=== PATIENT | female | born 1955 | race Caucasian/White ===

== ENCOUNTER 2018-08-03 12:53 | Inpatient (IN) ==
--- NOTE | 2018-08-03 13:09 | Emergency Department Note ---
ED Disposition Clinical Impression: Angina pectoris Disposition: Still a Patient Condition on Discharge: Good Referrals: García Hubbard MD [Primary Care Provider] - - Critical Care Critical Care Time: No Attestation: On , the high probability of a clinically significant, sudden or life threatening deterioration of the following system(s) required my full and direct attention, intervention and personal management. The time I documented below is in addition to time spent performing reported procedures but includes the following listed in this critical care notation. Medical Decision Making - Kiran Inquiry Pt receiving controlled substance: No Vital Signs: 08/03/18 12:53 08/03/18 13:53 Pulse Rate [Left Radial] 58 L 56 L Respiratory Rate 18 18 Blood Pressure [Right Arm] 130/70 134/74 Blood Pressure Mean [Right Arm] 90 94 Blood Pressure Source [Right Arm] Automatic Cuff Automatic Cuff Blood Pressure Position [Right Arm] Supine Sitting 02 Sat by Pulse Oximetry 99 98 Oxygen Delivery Method Room Air Room Air - Lab Data Lab Results 08/03/18 13:00: WBC 9.1, RBC 4.13 L, Hgb 12.3, Hct 38.3, MCV 92.7, MCH 29.7, MCHC 32.1, RDW 13.7, Plt Count 262, MPV 8.4, Neut % (Auto) 76.1, Lymph % (Auto) 19.2, [place] % (Auto) 3.2, Eos % (Auto) 0.8, Baso % (Auto) 0.6, Neut # (Auto) 6.9, Lymph # (Auto) 1.8, [place] # (Auto) 0.3, Eos # (Auto) 0.1, Baso # (Auto) 0.1 08/03/18 13:00: Sodium 137, Potassium 4.7, Chloride 101, Carbon Dioxide 27, Anion Gap 13.7, BUN 29 H, Creatinine 1.86 H, Estimated Creat Clear 37, Estimated GFR 27 L, Est GFR ( Amer) 33 L, Glucose 242 H, Calcium 8.7, Total Bilirubin 0.3, AST 14 L, ALT 28, Alkaline Phosphatase 110, Troponin I 0.03, Total Protein 7.8, Albumin 3.4, Globulin 4.4 H, Albumin/Globulin Ratio 0.8 L Result diagrams: 08/03/18 13:00 08/03/18 13:00 Orders (Tests/Meds): ED MEDICATIONS Generic Name Dose Route Start Last Admin Trade Name Freq PRN Reason Stop Dose Admin Aspirin 81 mg 08/04/18 09:00 Aspirin 81mg Chewable Tablet PO 09/03/18 08:59 DAILY SARA Atorvastatin Calcium 80 mg 08/03/18 21:00 Lipitor 40mg Tablet PO 09/02/18 20:59 HS SARA Bisoprolol Fumarate 10 mg 08/03/18 21:00 Zebeta 5mg Tablet PO 09/02/18 20:59 BID SARA Diltiazem HCl 240 mg 08/03/18 21:00 Cardizem 180mg Er Capsule PO 09/02/18 20:59 BID SARA Irbesartan 150 mg 08/03/18 14:31 Avapro 150mg Tablet PO 08/03/18 14:32 ONCE ONE Nitroglycerin 0.5 gm 08/03/18 14:30 Nitroglycerin 1 Inch Oint Udp TD 09/02/18 14:29 Q6H SARA Discontinued Medications Generic Name Dose Route Start Last Admin Trade Name Freq PRN Reason Stop Dose Admin Aspirin 324 mg 08/03/18 13:11 08/03/18 13:15 Aspirin 81mg Chewable Tablet PO 08/03/18 13:12 324 mg ONCE ONE Administration Ondansetron HCl 4 mg 08/03/18 13:09 08/03/18 13:15 Zofran 4mg/2ml Vial IV 08/03/18 13:10 4 mg ONCE ONE Administration - Radiology Data #1 Image(s): Chest Image Reviewed: Yes I reviewed the patient's radiology image Preliminary Findings: Normal/NAD - ECG Data Tracing #1 EKG interpreted by Samy Rivero MD: Rhythm: Atrial flutter with 4-1 conduction Rate: 58 Frost: normal Ectopy: none Conduction: normal ST Segment Changes: none T Wave Changes: none Q Waves: none No evidence of acute ischemia or injury Prior electrocardiagrams reviewed. No change from prior tracings. - Physician Consults Physician Consulted: PETRA Vieira, for Dr. Hubbard Time: 14:05 Reason -: Cardiology Eval/Care Comment/Response: Here in the emergency department seeing patient at this time. Admit, they plan to perform cardiac cath in the morning Additional Consult: Daisy Time: 14:36 Comment/Response: Agrees to admit the patient to the hospital. We discussed the patient's clinical information, including history, exam, laboratory and radiology results and ED course. Per hospital procedure, I will write temporary bridge inpatient orders on the patient. Specific orders requested by the admitting physician: Serial cardiac enzymes, n.p.o. after midnight, start IV fluids then General Adult HPI - General Chief complaint: Chest Pain Stated complaint: CHEST PAIN Time Seen by Provider: 08/03/18 13:15 Mode of Arrival: Ambulatory Limitations: No Limitations Description of Symptoms (Recalled from ER Triage Doc. by RN): PATIENT STATES THAT SHE HAS BEEN SEEING DR HUBBARD ABOUT HER HEART RHYTHM. THURSDAY SHE STARTED HAVING CHEST PAIN THAT WENT ACROSS HER ENTIRE CHEST AND THE PAIN IS A 10 WHEN IT HITS. AT 930 THI SMORNING HER CHEST PAIN STARTED AGAIN AND IT CAUSED HER TO VOMIT. SHE IS MILDLY NASUEAS NOW. - History of Present Illness HPI narrative: Complains of chest pain for the past 2 days. Having a handful of episodes each day, lasting minutes. Nothing seems to bring it on, but says it goes away when she vomits. Associated with hot flashes, radiation across her back, shortness of breath. Feels similar to prior cardiac pain. States she has had 3 heart attacks and has 3 stents. Her last stent was put in by Dr. Hubbard in December. She is also seeing Dr. Hubbard for atrial fibrillation. She had an appointment today, but came to the emergency room instead because she had chest pain again this morning. States she is currently pain-free. - Related Data Home Medications Medication Instructions Recorded Confirmed ergocalciferol (vitamin D2) 50,000 50,000 unit PO QWEEK 12/16/17 07/21/18 unit capsule glipizide 10 mg tablet 10 mg PO BID 12/16/17 07/21/18 levothyroxine 88 mcg capsule 88 mcg PO DAILY cap 12/16/17 07/21/18 omega-3 fatty acids 1,000 mg 1,000 mg PO DAILY cap 12/16/17 07/21/18 capsule insulin degludec (U-100) 100 40 unit SUB-Q QHS ml 02/03/18 07/21/18 unit/mL (3 mL) subcutaneous pen Apixaban [Eliquis] 5 mg PO BID 08/03/18 Atorvastatin Calcium [Lipitor 80mg 80 mg PO HS 08/03/18 Tablet] Bisoprolol Fumarate [Bisoprolol 10 mg PO BID 08/03/18 10mg Tablet] Losartan Potassium [Cozaar] 100 mg PO DAILY 08/03/18 Pantoprazole Sodium [Protonix 40mg 40 mg PO QAM 08/03/18 tablet] dilTIAZem HCl [Diltiazem 240mg 240 mg PO BID 08/03/18 24Hr ER Cap] Previous Rx's Medication Instructions Recorded nitroglycerin 0.4 mg sublingual 0.4 mg SUBLINGUAL Q5M PRN #30 tab 07/21/18 tablet Allergies Allergy/AdvReac Type Severity Reaction Status Date / Time lisinopril AdvReac Cough Verified 07/21/18 11:51 rivaroxaban [From Xarelto] AdvReac Verified 08/03/18 13:03 [facility] History I have reviewed the patient's past medical history: Yes Medical History: Reports:: Diabetes Mellitus Type 2, Hypertension Other Medical History: Reports: Hypothyroidism Other Surgeries: Yes: Angioplasty, Cardiac Catheterization, Cholecystectomy, Hysterectomy-Partial - Social History Smoking Status: Never smoker Alcohol Intake: never - Psychiatric History Expresses thoughts of harming self/others: None Suicide Plan Description: No Plan Family Hx:: Diabetes Comment: Mother - heart disease ROS Obtained: Yes All systems reviewed & no additional complaints - Constitutional Constitutional: Denies fever(s) - Cardiovascular Cardiovascular: Reports chest pain, Reports dyspnea - Respiratory Respiratory: No cough - Gastrointestinal Gastrointestingal: Reports: nausea, vomiting. Denies: abdominal pain Physical Exam - General General appearance: alert, in no apparent distress - Head Head exam: atraumatic, normocephalic - Eye Eye exam: Present: normal appearance, PERRL, EOMI - ENT ENT exam: Present: mucous membranes moist - Neck Neck exam: Present: normal inspection, trachea midline - Chest Chest inspection: Present: normal inspection, symmetric chest wall rise - Respiratory Respiratory exam: Present: normal lung sounds bilaterally. Absent: respiratory distress - Cardiovascular Cardiovascular exam: Present: regular rate, normal rhythm, normal heart sounds - Abdominal Exam Abdominal exam: Present: soft. Absent: distention - Extremities Exam Extremities exam: Present: normal inspection, full ROM - Neurological Exam Neurological exam: Present: alert, oriented X3 - Psychiatric Psychiatric exam: Present: normal affect - Skin Skin exam: Present: warm, dry
[2018-08-03 13:14] LABS: Basophils # 0.1 K/mm3 (0-0.2); Basophils % 0.6 % (0.1-2.0); Eosinophils # 0.1 K/mm3 (0.0-0.4); Eosinophils % 0.8 % (0.1-12.0); Hematocrit 38.3 % (37.0-47.0); Hemoglobin 12.3 g/dL (12.2-16.2); Lymphocytes # 1.8 K/mm3 (0.7-4.5); Lymphocytes % 19.2 % (10-50); Mean Corpuscular HGB Conc 32.1 g/dL (31.8-35.4); Mean Corpuscular Hemoglobin 29.7 pg (27.0-31.2); Mean Corpuscular Volume 92.7 fl (81-99); Mean Platelet Volume 8.4 fl (7.4-10.4); Monocytes # 0.3 K/mm3 (0.1-1.0); Monocytes % 3.2 % (1.7-9.3); Neutrophils # 6.9 K/mm3 (1.8-7.8); Neutrophils % 76.1 % (37.0-80.0); Platelet Count 262 K/mm3 (142-424); Red Blood Count 4.13 M/mm3 (4.20-5.40); Red Cell Distribution Width 13.7 % (11.5-17.5); White Blood Count 9.1 K/mm3 (4.8-10.8)
[2018-08-03 13:35] LABS: Albumin Level 3.4 gm/dL (3.4-5.0); Albumin/Globulin Ratio 0.8 (1.1-1.8); Anion Gap 13.7 mEq/L (5-15); Bilirubin,Total 0.3 mg/dL (0.2-1.0); Calcium 8.7 mg/dL (8.5-10.1); Globulin 4.4 gm/dl (1.3-3.2); Potassium 4.7 mmoL/L (3.5-5.1); Total Protein,Serum 7.8 gm/dL (6.4-8.2)
--- NOTE | 2018-08-03 14:22 | Consult Report ---
History of Present Illness Consult date: 08/03/18 Consult reason: chest pain Chief complaint: Chest pain Additional Medical History:: 1. Coronary artery disease A. History of coronary artery stenting x3 in 2016 and 2017 with the last one in January or February [address] [place] [address] Foss. It was to the right coronary artery. 2. Diabetes mellitus, treated for 35 years A. Last hemoglobin A1c was 12 3. Hypertension 4. Hyperlipidemia 5. Hypothyroidism 6. Atrial fibrillation/flutter, failed sotalol therapy A. On Eliquis 7. Chronic kidney disease, stage III/IV with creatinine 1.86 and GFR 33 History of present illness: 63-year-old white female with coronary disease as noted above and long-term diabetes that is poorly controlled was seen in the emergency department at [facility] for complaint of recurrent chest pain over the last 3 days. Patient describes substernal discomfort with radiation to the back associated with nausea and vomiting today. The patient's daughter relates episodes of weakness and near syncope lasting up to 30 seconds. Patient also notes some shortness of breath and diaphoresis. Initial EKG shows atrial flutter with 4-1 block with controlled ventricular response. Patient's initial troponin is normal. In the ER she is currently pain-free. Cardiology consulted for evaluation recommendations. [facility] History Medical History: Reports:: Diabetes Mellitus Type 2, Hypertension Other Medical History: Reports: Hypothyroidism Other Surgeries: Yes: Angioplasty, Cardiac Catheterization, Cholecystectomy, Hysterectomy-Partial - *Social History Smoking Status: Never smoker Alcohol Intake: never - Psychiatric History Expresses thoughts of harming self/others: None Suicide Plan Description: No Plan *Family Hx:: Diabetes Meds Home Medications Medication Instructions Recorded Confirmed Type ergocalciferol (vitamin D2) 50,000 50,000 unit PO QWEEK 12/16/17 07/21/18 History unit capsule glipizide 10 mg tablet 10 mg PO BID 12/16/17 07/21/18 History levothyroxine 88 mcg capsule 88 mcg PO DAILY cap 12/16/17 07/21/18 History omega-3 fatty acids 1,000 mg 1,000 mg PO DAILY cap 12/16/17 07/21/18 History capsule insulin degludec (U-100) 100 40 unit SUB-Q QHS ml 02/03/18 07/21/18 History unit/mL (3 mL) subcutaneous pen Apixaban [Eliquis] 5 mg PO BID 08/03/18 History Atorvastatin Calcium [Lipitor 80mg 80 mg PO HS 08/03/18 History Tablet] Bisoprolol Fumarate [Bisoprolol 10 mg PO BID 08/03/18 History 10mg Tablet] Losartan Potassium [Cozaar] 100 mg PO DAILY 08/03/18 History Pantoprazole Sodium [Protonix 40mg 40 mg PO QAM 08/03/18 History tablet] dilTIAZem HCl [Diltiazem 240mg 240 mg PO BID 08/03/18 History 24Hr ER Cap] Allergies Allergy/AdvReac Type Severity Reaction Status Date / Time lisinopril AdvReac Cough Verified 07/21/18 11:51 rivaroxaban [From Xarelto] AdvReac Verified 08/03/18 13:03 Review of Systems - *Cardiovascular Reports chest pain, Reports shortness of breath with activity - *Respiratory Reports shortness of breath with activity - *Gastrointestinal Reports abdominal pain, Reports vomiting - *Genitourinary Denies blood in urine - *Musculoskeletal Reports back pain Exam Vital signs and Labs for Last 24 Hours: Pulse Resp BP Pulse Ox 56 L 18 134/74 98 08/03/18 13:53 08/03/18 13:53 08/03/18 13:53 08/03/18 13:53 Laboratory Results - last 24 hr 08/03/18 13:00: WBC 9.1, RBC 4.13 L, Hgb 12.3, Hct 38.3, MCV 92.7, MCH 29.7, MCHC 32.1, RDW 13.7, Plt Count 262, MPV 8.4, Neut % (Auto) 76.1, Lymph % (Auto) 19.2, [place] % (Auto) 3.2, Eos % (Auto) 0.8, Baso % (Auto) 0.6, Neut # (Auto) 6.9, Lymph # (Auto) 1.8, [place] # (Auto) 0.3, Eos # (Auto) 0.1, Baso # (Auto) 0.1 08/03/18 13:00: Sodium 137, Potassium 4.7, Chloride 101, Carbon Dioxide 27, Anion Gap 13.7, BUN 29 H, Creatinine 1.86 H, Estimated Creat Clear 37, Estimated GFR 27 L, Est GFR ( Amer) 33 L, Glucose 242 H, Calcium 8.7, Total Bilirubin 0.3, AST 14 L, ALT 28, Alkaline Phosphatase 110, Troponin I 0.03, Total Protein 7.8, Albumin 3.4, Globulin 4.4 H, Albumin/Globulin Ratio 0.8 L I & O for Last 24 hours: Intake & Output 08/01/18 08/02/18 08/03/18 08/04/18 11:59 11:59 11:59 11:59 Weight 170 lb - *Routine Neck Exam Present: supple. Absent: JVD, carotid bruit - *Routine Respiratory Exam Present: CTA bilaterally. Absent: accessory muscle use, rales, rhonchi, wheezes - *Routine Cardiovascular Exam Present: RRR. Absent: murmur, gallop, rubs - *Routine Abdominal Exam Present: soft. Absent: tenderness, distended, guarding - *Routine Extremities Exam Present: edema. Absent: calf tenderness - *Routine Neurological Exam Present: alert, oriented X3, moving all extremities Assessment and Plan (1) Angina pectoris Current visit: No Status: Chronic Category: Medical Code(s): I20.9 - Angina pectoris, unspecified (2) Atrial fibrillation Current visit: No Status: Chronic Qualifiers: Atrial fibrillation type: chronic Qualified Code(s): I48.2 - Chronic atrial fibrillation Category: Medical Code(s): I48.91 - Unspecified atrial fibrillation (3) Coronary arteriosclerosis Current visit: No Status: Chronic Category: Medical Code(s): I25.10 - Atherosclerotic heart disease of elem coronary artery without angina pectoris (4) HLD (hyperlipidemia) Current visit: No Status: Chronic Qualifiers: Hyperlipidemia type: mixed hyperlipidemia Qualified Code(s): E78.2 - Mixed hyperlipidemia Category: Medical Code(s): E78.5 - Hyperlipidemia, unspecified (5) Hypertensive heart disease Current visit: No Status: Chronic Qualifiers: Heart failure presence: without heart failure Qualified Code(s): I11.9 - Hypertensive heart disease without heart failure Category: Medical Code(s): I11.9 - Hypertensive heart disease without heart failure (6) Diabetes mellitus Current visit: Yes Status: Acute Category: Medical Code(s): E11.9 - Type 2 diabetes mellitus without complications (7) CKD (chronic kidney disease) stage 3, GFR 30-59 ml/min Current visit: Yes Status: Acute Category: Medical Code(s): N18.3 - Chronic kidney disease, stage 3 (moderate) - Assessment and plan all Dx Assessment and Plan for all problems:: 1. Patient should be admitted with plans to proceed with left heart catheterization in the a.m. 2. Will hold Eliquis therapy tonight and in the a.m. in preparation for cardiac catheterization. 3. Continue diltiazem 240 twice daily, bisoprolol 10 mg twice daily and losartan 100 mg daily. Add nitroglycerin paste 1/2 inch every 6 hours. 4. If cardiac catheterization shows no significant coronary artery disease then patient would benefit from improved diabetes control and possible GI workup for diabetic gastroparesis. 5. Further recommendations to follow pending above.
--- NOTE | 2018-08-03 18:08 | History & Physical Report ---
*Admission Date: 08/03/18 *Chief complaint: Chest pressure, warmth *History of present illness: Ms. Bailey is a 63-year-old female with history of coronary artery disease status post stents in 2016 and 17, Diabetes on insulin, CKD 3, hypertension, hyperlipidemia, hypothyroidism, and atrial flutter. She presented to the emergency room at [facility] due to recurrent and progressive chest pain over the past 3 days. She describes a pressure, substernally, that radiates to her back and neck associated with GI symptoms including nausea and emesis. She additionally has had a warm/flushing sensation from about mid chest up for the past day with these episodes. She denies syncope, tamara chest pain or stabbing sensations. Episodes last approximately 30 seconds and self resolved. Initial EKG in the ER showed a flutter. Troponins so far are normal. Cardiology was consulted for further assessment. Recommended admission and heart cath in the morning. Admitted to medicine for further management Denies headache, confusion, diarrhea, shortness of breath, syncope. [facility] History I have reviewed the patient's past medical history: Yes Medical History: Reports:: Diabetes Mellitus Type 2, Hypertension Other Medical History: Reports: Hypothyroidism Other Surgeries: Yes: Angioplasty, Cardiac Catheterization, Cholecystectomy, Hysterectomy-Partial - *Social History Educational Level: Attended College Smoking Status: Never smoker Alcohol Intake: never Occupational Status: retired Housing: house Household Members: spouse - Psychiatric History Expresses thoughts of harming self/others: None Suicide Plan Description: No Plan *Family Hx:: Diabetes Review of Systems - Review of Systems Review of systems:: pertinent systems reviewed and negative unless documented below Meds Home Medications Medication Instructions Recorded Confirmed Type ergocalciferol (vitamin D2) 50,000 50,000 unit PO QWEEK 12/16/17 08/03/18 History unit capsule glipizide 10 mg tablet 10 mg PO BID 12/16/17 08/03/18 History levothyroxine 88 mcg capsule 88 mcg PO DAILY cap 12/16/17 08/03/18 History omega-3 fatty acids 1,000 mg 1,000 mg PO DAILY cap 12/16/17 08/03/18 History capsule insulin degludec (U-100) 100 40 unit SUB-Q QHS ml 02/03/18 08/03/18 History unit/mL (3 mL) subcutaneous pen Apixaban [Eliquis] 5 mg PO BID 08/03/18 08/03/18 History Bisoprolol Fumarate [Bisoprolol 10 mg PO BID 08/03/18 08/03/18 History 10mg Tablet] Losartan Potassium [Cozaar] 100 mg PO DAILY 08/03/18 08/03/18 History Pantoprazole Sodium [Protonix 40mg 40 mg PO QAM 08/03/18 08/03/18 History tablet] dilTIAZem HCl [Diltiazem 240mg 240 mg PO BID 08/03/18 08/03/18 History 24Hr ER Cap] Allergies Allergy/AdvReac Type Severity Reaction Status Date / Time lisinopril AdvReac Cough Verified 07/21/18 11:51 rivaroxaban [From Xarelto] AdvReac Verified 08/03/18 13:03 Exam Vital signs and Labs for Last 24 Hours: Temp Pulse Resp BP Pulse Ox 97.8 F 58 L 16 152/68 H 97 08/03/18 16:57 08/03/18 16:57 08/03/18 16:57 08/03/18 16:57 08/03/18 16:57 Laboratory Results - last 24 hr 08/03/18 13:00: WBC 9.1, RBC 4.13 L, Hgb 12.3, Hct 38.3, MCV 92.7, MCH 29.7, MCHC 32.1, RDW 13.7, Plt Count 262, MPV 8.4, Neut % (Auto) 76.1, Lymph % (Auto) 19.2, [place] % (Auto) 3.2, Eos % (Auto) 0.8, Baso % (Auto) 0.6, Neut # (Auto) 6.9, Lymph # (Auto) 1.8, [place] # (Auto) 0.3, Eos # (Auto) 0.1, Baso # (Auto) 0.1 08/03/18 13:00: Sodium 137, Potassium 4.7, Chloride 101, Carbon Dioxide 27, Anion Gap 13.7, BUN 29 H, Creatinine 1.86 H, Estimated Creat Clear 37, Estimated GFR 27 L, Est GFR ( Amer) 33 L, Glucose 242 H, Calcium 8.7, Total Bilirubin 0.3, AST 14 L, ALT 28, Alkaline Phosphatase 110, Troponin I 0.03, Total Protein 7.8, Albumin 3.4, Globulin 4.4 H, Albumin/Globulin Ratio 0.8 L 08/03/18 17:08: POC Glucose 304 H* I & O for Last 24 hours: Intake & Output 07/31/18 08/01/18 08/02/18 08/03/18 23:59 23:59 23:59 23:59 Intake Total 360 / 360 Balance 360 / 360 Weight 79.124 kg - *Routine HEENT Exam Head: Present: normocephalic, Mahoney's sign Eye: Present: EOMI, PERRL ENT: Present: mucous membranes moist - *Routine Neck Exam Present: supple. Absent: lymphadenopathy - *Routine Respiratory Exam Present: CTA bilaterally, crackles (Bibasilar, fine). Absent: prolonged expiratory phase, wheezes - *Routine Cardiovascular Exam Present: Normal S1, irregular rhythm. Absent: murmur - *Routine Abdominal Exam Present: soft, normoactive bowel sounds - *Routine Rectal Exam Patient deferred: visual exam - *Routine Exam Patient deferred: external exam - *Routine Extremities Exam Present: edema (Trace). Absent: cyanosis, clubbing - *Routine Skin Exam Present: intact. Absent: cyanosis, erythema - *Routine Neurological Exam Present: alert, oriented X3. Absent: altered mental status Assessment and Plan (1) Angina pectoris Current visit: Yes Status: Acute Category: Medical Code(s): I20.9 - Angina pectoris, unspecified Cardiology consulted. Planning for In the morning. N.p.o. at midnight. - hold Eliquis therapy tonight and in the a.m. in preparation for cardiac catheterization. - Continue diltiazem 240 twice daily, bisoprolol 10 mg twice daily and losartan 100 mg daily. Add nitroglycerin paste 1/2 inch every 6 hours. -Cardiology plan as follows: If cardiac catheterization shows no significant coronary artery disease then patient would benefit from improved diabetes control and possible GI workup for diabetic gastroparesis. (2) Atrial fibrillation Current visit: No Status: Chronic Qualifiers: Atrial fibrillation type: chronic Qualified Code(s): I48.2 - Chronic atrial fibrillation Category: Medical Code(s): I48.91 - Unspecified atrial fibrillation (3) Coronary arteriosclerosis Current visit: No Status: Chronic Category: Medical Code(s): I25.10 - Atherosclerotic heart disease of [place] coronary artery without angina pectoris (4) HLD (hyperlipidemia) Current visit: No Status: Chronic Qualifiers: Hyperlipidemia type: mixed hyperlipidemia Qualified Code(s): E78.2 - Mixed hyperlipidemia Category: Medical Code(s): E78.5 - Hyperlipidemia, unspecified (5) Hypertensive heart disease Current visit: No Status: Chronic Qualifiers: Heart failure presence: without heart failure Qualified Code(s): I11.9 - Hypertensive heart disease without heart failure Category: Medical Code(s): I11.9 - Hypertensive heart disease without heart failure (6) Diabetes mellitus Current visit: Yes Status: Acute Qualifiers: Diabetes mellitus type: type 2 Diabetes mellitus mcc insulin use: with mcc use Diabetes mellitus complication status: with circulatory complication Diabetes mellitus complication detail: with other circulatory complications Qualified Code(s): E11.59 - Type 2 diabetes mellitus with other circulatory complications; Z79.4 - halfway (current) use of insulin Category: Medical Code(s): E11.9 - Type 2 diabetes mellitus without complications Patient on glipizide and insulin degludec 50 units daily. -Initiate sliding scale insulin -Continue insulin degludec, 40 units while inpatient and n.p.o. -Monitor fingerstick before meals and at bedtime (7) CKD (chronic kidney disease) stage 3, GFR 30-59 ml/min Current visit: Yes Status: Chronic Category: Medical Code(s): N18.3 - Chronic kidney disease, stage 3 (moderate) Baseline creatinine 1.8 -Avoid nephrotoxins -Monitor fluid status
[2018-08-04 06:09] LABS: Basophils % 0.5 % (0.1-2.0); Eosinophils # 0.1 K/mm3 (0.0-0.4); Eosinophils % 1.2 % (0.1-12.0); Hematocrit 33.4 % (37.0-47.0); Lymphocytes # 1.8 K/mm3 (0.7-4.5); Lymphocytes % 25.7 % (10-50); Mean Corpuscular HGB Conc 32.5 g/dL (31.8-35.4); Mean Corpuscular Hemoglobin 30.2 pg (27.0-31.2); Mean Corpuscular Volume 92.7 fl (81-99); Mean Platelet Volume 8.2 fl (7.4-10.4); Monocytes # 0.4 K/mm3 (0.1-1.0); Monocytes % 6.2 % (1.7-9.3); Neutrophils # 4.7 K/mm3 (1.8-7.8); Neutrophils % 66.5 % (37.0-80.0); Platelet Count 215 K/mm3 (142-424); White Blood Count 7.1 K/mm3 (4.8-10.8)
[2018-08-04 06:16] LABS: Anion Gap 13.3 mEq/L (5-15); Calcium 8.5 mg/dL (8.5-10.1); Potassium 4.3 mmoL/L (3.5-5.1)
[2018-08-04 07:02] LABS: Hemoglobin 10.9 g/dL (12.2-16.2)
--- NOTE | 2018-08-04 07:49 | Pharmacy Consult Notes ---
[facility] Pharmacy VTE Monitoring - Patient Demographics Admission date: 08/03/18 Report Date: 08/04/18 Time: 07:49 Allergies/Adverse Reactions: Patient Allergies lisinopril Adverse Reaction (Verified 07/21/18 11:51) Cough rivaroxaban [From Xarelto] Adverse Reaction (Verified 08/03/18 13:03) Height: 1.63 m Weight: 79.124 kg Patient Problems: Current Active Problems Diabetes mellitus (Acute) CKD (chronic kidney disease) stage 3, GFR 30-59 ml/min (Chronic) Angina pectoris (Acute) - VTE Risk Labs: VTE Related Lab Results Hgb 10.9 g/dL (12.2-16.2) L D 08/04/18 05:46 Hct 33.4 % (37.0-47.0) L 08/04/18 05:46 Plt Count 215 K/mm3 (142-424) 08/04/18 05:46 BUN 28 mg/dL (7-18) H 08/04/18 05:46 Creatinine 1.69 mg/dL (0.55-1.02) H 08/04/18 05:46 Estimated Creat Clear 42 mL/min (50-200) 08/04/18 05:46 Was VTE Risk Assessment Performed: Yes VTE Score: 1 VTE Risk Level: Very Low Risk Clinical Trial Participant: No - Prophylaxis VTE Prophylaxis Ordered?: Yes Types of VTE Prophylaxis: TEDS Knee High
--- NOTE | 2018-08-04 07:50 | Progress Note ---
Internal Medicine - PN: Subj *Date: 08/04/18 *Time: 07:49 Interval history: Patient slept comfortably, no chest pain. No complaints. Exam Vital signs and Labs for Last 24 Hours: Temp Pulse Resp BP Pulse Ox 97.2 F L 58 L 15 117/57 L 95 08/04/18 04:00 08/04/18 04:00 08/04/18 04:00 08/04/18 04:00 08/04/18 04:00 Laboratory Results - last 24 hr 08/03/18 13:00: WBC 9.1, RBC 4.13 L, Hgb 12.3, Hct 38.3, MCV 92.7, MCH 29.7, MCHC 32.1, RDW 13.7, Plt Count 262, MPV 8.4, Neut % (Auto) 76.1, Lymph % (Auto) 19.2, [place] % (Auto) 3.2, Eos % (Auto) 0.8, Baso % (Auto) 0.6, Neut # (Auto) 6.9, Lymph # (Auto) 1.8, [place] # (Auto) 0.3, Eos # (Auto) 0.1, Baso # (Auto) 0.1 08/03/18 13:00: Sodium 137, Potassium 4.7, Chloride 101, Carbon Dioxide 27, Anion Gap 13.7, BUN 29 H, Creatinine 1.86 H, Estimated Creat Clear 37, Estimated GFR 27 L, Est GFR ( Amer) 33 L, Glucose 242 H, Calcium 8.7, Total Bilirubin 0.3, AST 14 L, ALT 28, Alkaline Phosphatase 110, Troponin I 0.03, Total Protein 7.8, Albumin 3.4, Globulin 4.4 H, Albumin/Globulin Ratio 0.8 L 08/03/18 17:08: POC Glucose 304 H* 08/03/18 18:03: Troponin I 0.03 08/03/18 20:37: Troponin I 0.03 08/03/18 20:54: POC Glucose 274 H 08/04/18 05:46: WBC 7.1, RBC 3.60 L, Hgb 10.9 L D, Hct 33.4 L, MCV 92.7, MCH 30.2, MCHC 32.5, RDW 14.0, Plt Count 215, MPV 8.2, Neut % (Auto) 66.5, Lymph % (Auto) 25.7, [place] % (Auto) 6.2, Eos % (Auto) 1.2, Baso % (Auto) 0.5, Neut # (Auto) 4.7, Lymph # (Auto) 1.8, [place] # (Auto) 0.4, Eos # (Auto) 0.1, Baso # (Auto) 0.0 08/04/18 05:46: Sodium 140, Potassium 4.3, Chloride 104, Carbon Dioxide 27, Anion Gap 13.3, BUN 28 H, Creatinine 1.69 H, Estimated Creat Clear 42, Estimated GFR 30 L, Est GFR ( Amer) 37 L, Glucose 163 H D, Calcium 8.5 I & O for Last 24 hours: Intake & Output 08/01/18 08/02/18 08/03/18 08/04/18 11:59 11:59 11:59 11:59 Intake Total 360 / 360 Balance 360 / 360 Weight 174 lb 7 oz Narrative: Alert, oriented. Pleasant. No JVD. Oropharynx clear. Heart rate regular without murmurs. Lungs clear. No edema noted. Abdomen soft, No focal neurologic exam. Assessment and Plan (1) Angina pectoris Current visit: Yes Status: Acute Category: Medical Code(s): I20.9 - Angina pectoris, unspecified (2) Atrial fibrillation Current visit: No Status: Chronic Qualifiers: Atrial fibrillation type: chronic Qualified Code(s): I48.2 - Chronic atrial fibrillation Category: Medical Code(s): I48.91 - Unspecified atrial fibrillation (3) Coronary arteriosclerosis Current visit: No Status: Chronic Category: Medical Code(s): I25.10 - Atherosclerotic heart disease of [place] coronary artery without angina pectoris (4) HLD (hyperlipidemia) Current visit: No Status: Chronic Qualifiers: Hyperlipidemia type: mixed hyperlipidemia Qualified Code(s): E78.2 - Mixed hyperlipidemia Category: Medical Code(s): E78.5 - Hyperlipidemia, unspecified (5) Hypertensive heart disease Current visit: No Status: Chronic Qualifiers: Heart failure presence: without heart failure Qualified Code(s): I11.9 - Hypertensive heart disease without heart failure Category: Medical Code(s): I11.9 - Hypertensive heart disease without heart failure (6) Diabetes mellitus Current visit: Yes Status: Acute Qualifiers: Diabetes mellitus type: type 2 Diabetes mellitus terminal operator insulin use: with usp use Diabetes mellitus complication status: with circulatory complication Diabetes mellitus complication detail: with other circulatory complications Qualified Code(s): E11.59 - Type 2 diabetes mellitus with other circulatory complications; Z79.4 - [facility] (current) use of insulin Category: Medical Code(s): E11.9 - Type 2 diabetes mellitus without complications (7) CKD (chronic kidney disease) stage 3, GFR 30-59 ml/min Current visit: Yes Status: Chronic Category: Medical Code(s): N18.3 - Chronic kidney disease, stage 3 (moderate) - Assessment and plan all Dx Assessment and Plan for all problems:: Patient without symptoms through the night. Plan for left heart cath today, with discharge disposition versus further treatment based on the results of this test.
--- NOTE | 2018-08-04 13:16 | Progress Note ---
Subjective Date: 08/04/18 Time: 13:10 Principal diagnosis: Angina, chest pain Interval history: 63 yo WF in NAD. Cardiac cath showed patent stents with no new significant lesions. Telemetry during cath showed significant bradycardia and pauses up to 3 sec. Exam Vital signs and Labs for Last 24 Hours: Temp Pulse Resp BP Pulse Ox 97.4 F L 58 L 18 132/55 L 96 08/04/18 11:48 08/04/18 11:48 08/04/18 11:48 08/04/18 11:48 08/04/18 11:48 Laboratory Results - last 24 hr 08/03/18 13:00: WBC 9.1, RBC 4.13 L, Hgb 12.3, Hct 38.3, MCV 92.7, MCH 29.7, MCHC 32.1, RDW 13.7, Plt Count 262, MPV 8.4, Neut % (Auto) 76.1, Lymph % (Auto) 19.2, [place] % (Auto) 3.2, Eos % (Auto) 0.8, Baso % (Auto) 0.6, Neut # (Auto) 6.9, Lymph # (Auto) 1.8, [place] # (Auto) 0.3, Eos # (Auto) 0.1, Baso # (Auto) 0.1 08/03/18 13:00: Sodium 137, Potassium 4.7, Chloride 101, Carbon Dioxide 27, Anion Gap 13.7, BUN 29 H, Creatinine 1.86 H, Estimated Creat Clear 37, Estimated GFR 27 L, Est GFR ( Amer) 33 L, Glucose 242 H, Calcium 8.7, Total Bilirubin 0.3, AST 14 L, ALT 28, Alkaline Phosphatase 110, Troponin I 0.03, Total Protein 7.8, Albumin 3.4, Globulin 4.4 H, Albumin/Globulin Ratio 0.8 L 08/03/18 17:08: POC Glucose 304 H* 08/03/18 18:03: Troponin I 0.03 08/03/18 20:37: Troponin I 0.03 08/03/18 20:54: POC Glucose 274 H 08/04/18 05:46: WBC 7.1, RBC 3.60 L, Hgb 10.9 L D, Hct 33.4 L, MCV 92.7, MCH 30.2, MCHC 32.5, RDW 14.0, Plt Count 215, MPV 8.2, Neut % (Auto) 66.5, Lymph % (Auto) 25.7, [place] % (Auto) 6.2, Eos % (Auto) 1.2, Baso % (Auto) 0.5, Neut # (Auto) 4.7, Lymph # (Auto) 1.8, [place] # (Auto) 0.4, Eos # (Auto) 0.1, Baso # ( Auto) 0.0 08/04/18 05:46: Sodium 140, Potassium 4.3, Chloride 104, Carbon Dioxide 27, Anion Gap 13.3, BUN 28 H, Creatinine 1.69 H, Estimated Creat Clear 42, Estimated GFR 30 L, Est GFR ( Amer) 37 L, Glucose 163 H D, Calcium 8.5 08/04/18 06:02: POC Glucose 164 H 08/04/18 11:33: POC Glucose 187 H I & O for Last 24 hours: Intake & Output 08/02/18 08/03/18 08/04/18 08/05/18 11:59 11:59 11:59 11:59 Intake Total 360 / 360 Balance 360 / 360 Weight 174 lb 7 oz - *Routine Respiratory Exam Present: CTA bilaterally. Absent: accessory muscle use, rales, rhonchi, wheezes - *Routine Cardiovascular Exam Present: irregularly irregular. Absent: murmur, gallop, rubs Progress Note: A&P (1) Angina pectoris Status: Acute Current Visit: Yes (2) Atrial fibrillation Status: Chronic Current Visit: No (3) Coronary arteriosclerosis Status: Chronic Current Visit: No (4) HLD (hyperlipidemia) Status: Chronic Current Visit: No (5) Hypertensive heart disease Status: Chronic Current Visit: No (6) Diabetes mellitus Status: Acute Current Visit: Yes (7) CKD (chronic kidney disease) stage 3, GFR 30-59 ml/min Status: Chronic Current Visit: Yes Assessment and Plan for All Diagnoses:: CAD, stable. Diastolic Dysfunction/Hyperdynamic EF noted. Will start/adjust diuretics. A. fib/flutter with bradycardia/pauses on current combo of BB/CCB. Will reduce bisoprolol to 10 mg daily and Diltiazem CD 240 mg daily. Observe overnight with BMP in AM.
[2018-08-05 06:10] LABS: Basophils # 0.1 K/mm3 (0-0.2); Basophils % 0.6 % (0.1-2.0); Eosinophils # 0.1 K/mm3 (0.0-0.4); Eosinophils % 1.1 % (0.1-12.0); Hematocrit 37.8 % (37.0-47.0); Lymphocytes # 1.9 K/mm3 (0.7-4.5); Lymphocytes % 22.9 % (10-50); Mean Corpuscular HGB Conc 32.6 g/dL (31.8-35.4); Mean Corpuscular Hemoglobin 29.6 pg (27.0-31.2); Mean Corpuscular Volume 90.9 fl (81-99); Mean Platelet Volume 8.1 fl (7.4-10.4); Monocytes # 0.6 K/mm3 (0.1-1.0); Monocytes % 7.3 % (1.7-9.3); Neutrophils # 5.7 K/mm3 (1.8-7.8); Neutrophils % 68.1 % (37.0-80.0); Platelet Count 236 K/mm3 (142-424); Red Blood Count 4.16 M/mm3 (4.20-5.40); Red Cell Distribution Width 13.6 % (11.5-17.5); White Blood Count 8.4 K/mm3 (4.8-10.8)
[2018-08-05 06:19] LABS: Hemoglobin 12.4 g/dL (12.2-16.2)
[2018-08-05 06:25] LABS: Albumin Level 3.2 gm/dL (3.4-5.0); Albumin/Globulin Ratio 0.7 (1.1-1.8); Anion Gap 11.5 mEq/L (5-15); Bilirubin,Total 0.4 mg/dL (0.2-1.0); Calcium 8.8 mg/dL (8.5-10.1); Globulin 4.3 gm/dl (1.3-3.2); Potassium 4.5 mmoL/L (3.5-5.1); Total Protein,Serum 7.5 gm/dL (6.4-8.2)
--- NOTE | 2018-08-05 07:22 | Progress Note ---
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 She currently has a heart rate in the 75 range, and has normal blood pressures. Blood pressures of the night were always above 100 systolic. She has no pain, dyspnea or other ill feelings. Exam Vital signs and Labs for Last 24 Hours: Temp Pulse Resp BP Pulse Ox 98 F 64 16 110/60 93 L 08/05/18 04:00 08/05/18 07:00 08/05/18 07:00 08/05/18 07:00 08/05/18 07:00 Laboratory Results - last 24 hr 08/04/18 06:02: POC Glucose 164 H 08/04/18 11:33: POC Glucose 187 H 08/04/18 16:41: POC Glucose 238 H 08/04/18 18:24: POC Glucose 289 H 08/04/18 20:31: POC Glucose 276 H 08/05/18 05:20: WBC 8.4, RBC 4.16 L, Hgb 12.4 D, Hct 37.8, MCV 90.9, MCH 29.6, MCHC 32.6, RDW 13.6, Plt Count 236, MPV 8.1, Neut % (Auto) 68.1, Lymph % (Auto) 22.9, [place] % (Auto) 7.3, Eos % (Auto) 1.1, Baso % (Auto) 0.6, Neut # (Auto) 5.7, Lymph # (Auto) 1.9, [place] # (Auto) 0.6, Eos # (Auto) 0.1, Baso # (Auto) 0.1 08/05/18 05:20: Sodium 138, Potassium 4.5, Chloride 104, Carbon Dioxide 27, Anion Gap 11.5, BUN 24 H, Creatinine 1.52 H, Estimated Creat Clear 47, Estimated GFR 34 L, Est GFR ( Amer) 42 L, Glucose 199 H D, Calcium 8.8, Total Bilirubin 0.4, AST 13 L, ALT 26, Alkaline Phosphatase 99, Total Protein 7.5, Albumin 3.2 L, Globulin 4.3 H, Albumin/Globulin Ratio 0.7 L 08/05/18 05:56: POC Glucose 213 H I & O for Last 24 hours: Intake & Output 08/02/18 08/03/18 08/04/18 08/05/18 11:59 11:59 11:59 11:59 Intake Total 360 / 360 1133 / 1133 Balance 360 / 360 1133 / 1133 Weight 174 lb 7 oz 177 lb 8 oz Narrative: Patient is alert. Pleasant. Oropharynx clear. No JVD. Heart rate regular. Anterior lung webb are clear, abdomen soft. No edema. Moves all extremities. Assessment and Plan (1) Angina pectoris Current visit: Yes Status: Acute Category: Medical Code(s): I20.9 - Angina pectoris, unspecified (2) Atrial fibrillation Current visit: No Status: Chronic Qualifiers: Atrial fibrillation type: chronic Qualified Code(s): I48.2 - Chronic atrial fibrillation Category: Medical Code(s): I48.91 - Unspecified atrial fibrillation (3) Coronary arteriosclerosis Current visit: No Status: Chronic Category: Medical Code(s): I25.10 - Atherosclerotic heart disease of [place] coronary artery without angina pectoris (4) HLD (hyperlipidemia) Current visit: No Status: Chronic Qualifiers: Hyperlipidemia type: mixed hyperlipidemia Qualified Code(s): E78.2 - Mixed hyperlipidemia Category: Medical Code(s): E78.5 - Hyperlipidemia, unspecified (5) Hypertensive heart disease Current visit: No Status: Chronic Qualifiers: Heart failure presence: without heart failure Qualified Code(s): I11.9 - Hypertensive heart disease without heart failure Category: Medical Code(s): I11.9 - Hypertensive heart disease without heart failure (6) Diabetes mellitus Current visit: Yes Status: Acute Qualifiers: Diabetes mellitus type: type 2 Diabetes mellitus intermodal customer service insulin use: with intermodal customer service use Diabetes mellitus complication status: with circulatory complication Diabetes mellitus complication detail: with other circulatory complications Qualified Code(s): E11.59 - Type 2 diabetes mellitus with other circulatory complications; Z79.4 - [facility] (current) use of insulin Category: Medical Code(s): E11.9 - Type 2 diabetes mellitus without complications (7) CKD (chronic kidney disease) stage 3, GFR 30-59 ml/min Current visit: Yes Status: Chronic Category: Medical Code(s): N18.3 - Chronic kidney disease, stage 3 (moderate) (8) Bradycardia Current visit: Yes Status: Acute Category: Medical Code(s): R00.1 - Bradycardia, unspecified Problems addressed as noted above as follows: 1. Angina-catheter results reviewed. No lesions amenable to stenting. Medication management planned. 2. Chronic kidney disease. Creatinine actually improved after heart cath, this morning is down to 1.5. 3. Bradycardia-worsened even after reduction of beta-milad and calcium channel milad. Dopamine infusion helped and is now discontinued. Cardiology will discuss case this morning and consider further medication changes versus pacemaker implantation.
--- NOTE | 2018-08-05 08:15 | Progress Note ---
Addendum entered and electronically signed by PETRA Copeland 08/05/18 15:38: Called earlier by nurse due to heart rates in the 20s and 30s. Patient is symptomatic with low blood pressure in the 60s. Patient was given 0.5 mg IV atropine with restarting of dopamine IV. Heart rate and blood pressure picked up with resolution of symptoms shortly thereafter. Will discontinue both bisoprolol and Cardizem. Continue to observe overnight. Decision regarding continued hospitalization versus implantation of pacemaker to be made tomorrow by Dr. Foss. Patient has history of chronic A. fib/flutter with controlled rate on medications. Original Note: Subjective Date: 08/05/18 Time: 08:12 Principal diagnosis: Angina, chest pain Interval history: 63-year-old white female in bed in no acute distress. States she feels better. Cardiac catheter revealed no significant coronary stenosis. Patient was noted to have significant bradycardia overnight successfully treated with IV dopamine which was discontinued about 3 hours ago. Heart rate currently in the 60s on telemetry. Exam Vital signs and Labs for Last 24 Hours: Temp Pulse Resp BP Pulse Ox 98 F 64 16 110/60 93 L 08/05/18 04:00 08/05/18 07:00 08/05/18 07:00 08/05/18 07:00 08/05/18 07:00 Laboratory Results - last 24 hr 08/04/18 06:02: POC Glucose 164 H 08/04/18 11:33: POC Glucose 187 H 08/04/18 16:41: POC Glucose 238 H 08/04/18 18:24: POC Glucose 289 H 08/04/18 20:31: POC Glucose 276 H 08/05/18 05:20: WBC 8.4, RBC 4.16 L, Hgb 12.4 D, Hct 37.8, MCV 90.9, MCH 29.6, MCHC 32.6, RDW 13.6, Plt Count 236, MPV 8.1, Neut % (Auto) 68.1, Lymph % (Auto) 22.9, [place] % (Auto) 7.3, Eos % (Auto) 1.1, Baso % (Auto) 0.6, Neut # (Auto) 5.7, Lymph # (Auto) 1.9, [place] # (Auto) 0.6, Eos # (Auto) 0.1, Baso # (Auto) 0.1 08/05/18 05:20: Sodium 138, Potassium 4.5, Chloride 104, Carbon Dioxide 27, Anion Gap 11.5, BUN 24 H, Creatinine 1.52 H, Estimated Creat Clear 47, Estimated GFR 34 L, Est GFR ( Amer) 42 L, Glucose 199 H D, Calcium 8.8, Total Bilirubin 0.4, AST 13 L, ALT 26, Alkaline Phosphatase 99, Total Protein 7.5, Albumin 3.2 L, Globulin 4.3 H, Albumin/Globulin Ratio 0.7 L 08/05/18 05:56: POC Glucose 213 H I & O for Last 24 hours: Intake & Output 08/02/18 08/03/18 08/04/18 08/05/18 11:59 11:59 11:59 11:59 Intake Total 360 / 360 1133 / 1133 Balance 360 / 360 1133 / 1133 Weight 174 lb 7 oz 177 lb 8 oz - *Routine Respiratory Exam Present: CTA bilaterally. Absent: accessory muscle use, rales, rhonchi, wheezes - *Routine Cardiovascular Exam Present: RRR. Absent: murmur, gallop, rubs Progress Note: A&P (1) Angina pectoris Status: Acute Current Visit: Yes (2) Atrial fibrillation Status: Chronic Current Visit: No (3) Coronary arteriosclerosis Status: Chronic Current Visit: No (4) HLD (hyperlipidemia) Status: Chronic Current Visit: No (5) Hypertensive heart disease Status: Chronic Current Visit: No (6) Diabetes mellitus Status: Acute Current Visit: Yes (7) CKD (chronic kidney disease) stage 3, GFR 30-59 ml/min Status: Chronic Current Visit: Yes (8) Bradycardia Status: Acute Current Visit: Yes Assessment and Plan for All Diagnoses:: 1. Patient's bisoprolol and Cardizem have been reduced as of yesterday. We will continue to watch the patient's heart rate this a.m. and if it remains in the 60s or higher than she could be discharged home later today for outpatient follow-up. She does endorse compliance with twice daily doses of bisoprolol and Cardizem at home however she does relate episodes of "hot flashes" and periods where she would pass out. These possibly were related to bradycardia. If patient discharged home later today would recommend a 24-48-hour Holter monitor and early follow-up in the office next week.
--- NOTE | 2018-08-06 08:34 | Progress Note ---
Internal Medicine - PN: Subj *Date: 08/06/18 *Time: 08:31 Interval history: Events of last night noted. HR into low 20s. Lots of pre-syncope noted. Now doing well - no symptoms. Exam Vital signs and Labs for Last 24 Hours: Temp Pulse Resp BP Pulse Ox 97.9 F 79 15 146/66 H 98 08/06/18 04:01 08/06/18 07:00 08/06/18 07:00 08/06/18 07:00 08/06/18 07:00 Laboratory Results - last 24 hr 08/05/18 11:09: POC Glucose 205 H 08/05/18 17:22: POC Glucose 204 H 08/05/18 19:57: POC Glucose 221 H 08/06/18 05:40: POC Glucose 191 H I & O for Last 24 hours: Intake & Output 08/03/18 08/04/18 08/05/18 08/06/18 11:59 11:59 11:59 11:59 Intake Total 360 / 360 1613 / 1613 2546 / 2546 Output Total 1300 / 1300 Balance 360 / 360 1613 / 1613 1246 / 1246 Weight 174 lb 7 oz 177 lb 8 oz 181 lb - Constitutional no acute distress - *Routine HEENT Exam Head: Present: normocephalic Eye: Present: EOMI, PERRL ENT: Present: mucous membranes moist - *Routine Respiratory Exam Present: CTA bilaterally - *Routine Cardiovascular Exam Present: RRR, irregular rhythm - *Routine Abdominal Exam Present: soft, normoactive bowel sounds - *Routine Extremities Exam Present: full ROM. Absent: cyanosis, clubbing, edema Assessment and Plan (1) Angina pectoris Current visit: Yes Status: Acute Category: Medical Code(s): I20.9 - Angina pectoris, unspecified (2) Atrial fibrillation Current visit: No Status: Chronic Qualifiers: Atrial fibrillation type: chronic Qualified Code(s): I48.2 - Chronic atrial fibrillation Category: Medical Code(s): I48.91 - Unspecified atrial fibrillation (3) Coronary arteriosclerosis Current visit: No Status: Chronic Category: Medical Code(s): I25.10 - Atherosclerotic heart disease of [place] coronary artery without angina pectoris (4) HLD (hyperlipidemia) Current visit: No Status: Chronic Qualifiers: Hyperlipidemia type: mixed hyperlipidemia Qualified Code(s): E78.2 - Mixed hyperlipidemia Category: Medical Code(s): E78.5 - Hyperlipidemia, unspecified (5) Hypertensive heart disease Current visit: No Status: Chronic Qualifiers: Heart failure presence: without heart failure Qualified Code(s): I11.9 - Hypertensive heart disease without heart failure Category: Medical Code(s): I11.9 - Hypertensive heart disease without heart failure (6) Diabetes mellitus Current visit: Yes Status: Acute Qualifiers: Diabetes mellitus type: type 2 Diabetes mellitus fpc insulin use: with fpc use Diabetes mellitus complication status: with circulatory complication Diabetes mellitus complication detail: with other circulatory complications Qualified Code(s): E11.59 - Type 2 diabetes mellitus with other circulatory complications; Z79.4 - [facility] (current) use of insulin Category: Medical Code(s): E11.9 - Type 2 diabetes mellitus without complications (7) CKD (chronic kidney disease) stage 3, GFR 30-59 ml/min Current visit: Yes Status: Chronic Category: Medical Code(s): N18.3 - Chronic kidney disease, stage 3 (moderate) (8) Bradycardia Current visit: Yes Status: Acute Category: Medical Code(s): R00.1 - Bradycardia, unspecified - Assessment and plan all Dx Assessment and Plan for all problems:: No change in other problems as noted. Needs pacemaker. Trevor alvarez continues.
--- NOTE | 2018-08-06 13:04 | Progress Note ---
Subjective Date: 08/06/18 Time: 13:03 Principal diagnosis: Angina, chest pain Interval history: 63-year-old female resting quietly in bed. Patient denies chest pain, tightness or pressure. Patient denies shortness of breath. No swelling of the lower extremities noted. Denies dizziness or palpitations. Throughout the night hours, patient was noted to have heart rates in the 20s and 30s. Patient was placed on dopamine drip at that time. Patient is currently on no beta- milad or calcium channel milad. Upon this examination Dr. Foss, patient noted with atrial fibrillation with a heart rate of 80 bpm. We will continue to talk to patient, patient's heart rate went to 116 bpm. Patient stated that even at home her heart rate will drop dramatically into the 40s. Patient very concerned due to low heart rate at home and irregular heart rhythm. Patient has had a tacky bradycardia syndrome. Discussed risk and benefits of pacemaker placement due to the tachy bradycardia syndrome. Patient verbalized understanding and is agreeable to have a pacemaker placed on Thursday (08/18/18). Case was discussed with Dr. Vazquez. Plan is to have patient remain in the hospital until PPM placement on Thursday monitor heart arrhythmia or abnormalities. Patient will be scheduled Thursday the 2017 for CRTD in OR. Nurses were instructed not to give patient Eliquis starting today. Exam Vital signs and Labs for Last 24 Hours: Temp Pulse Resp BP Pulse Ox 98.0 F 93 H 18 151/94 H 98 08/06/18 12:00 08/06/18 12:00 08/06/18 12:00 08/06/18 12:00 08/06/18 12:00 Laboratory Results - last 24 hr 08/05/18 17:22: POC Glucose 204 H 08/05/18 19:57: POC Glucose 221 H 08/06/18 05:40: POC Glucose 191 H 08/06/18 11:39: POC Glucose 218 H I & O for Last 24 hours: Intake & Output 08/03/18 08/04/18 08/05/18 08/06/18 23:59 23:59 23:59 23:59 Intake Total 360 / 360 3113 / 3113 1526 / 1526 Output Total 2600 / 2600 Balance 360 / 360 3113 / 3113 -1074 / -1074 Weight 174 lb 7 oz 174 lb 7 oz 177 lb 8 oz 181 lb - Constitutional no acute distress, obese - *Routine HEENT Exam Head: Present: normocephalic ENT: Present: mucous membranes moist - *Routine Neck Exam Present: supple, full ROM, normal carotid upstroke. Absent: JVD, carotid bruit - Routine Chest/Breast/Axilla Exam Chest wall: Present: tenderness. Absent: mass - *Routine Respiratory Exam Present: accessory muscle use, CTA bilaterally. Absent: stridor, wheezes, crackles, diminished air movement - *Routine Cardiovascular Exam Present: RRR, Normal S1, tachycardia, irregular rhythm. Absent: murmur, gallop, rubs, JVD - *Routine Abdominal Exam Present: soft, normoactive bowel sounds. Absent: tenderness, distended, guarding, firm - *Routine Extremities Exam Present: full ROM, pulses intact, normal capillary refill. Absent: cyanosis, clubbing, edema - *Routine Skin Exam Present: intact, dry, warm. Absent: cyanosis, erythema, lesions - *Routine Neurological Exam Present: alert, oriented X3, CN II-XII intact, moving all extremities - Routine Psychiatric Exam Present: normal affect Progress Note: A&P (1) Angina pectoris Start date: 08/06/18 Status: Acute Current Visit: Yes (2) Atrial fibrillation Status: Chronic Current Visit: No (3) Coronary arteriosclerosis Status: Chronic Current Visit: No (4) HLD (hyperlipidemia) Status: Chronic Current Visit: No (5) Hypertensive heart disease Status: Chronic Current Visit: No (6) Diabetes mellitus Status: Acute Current Visit: Yes (7) CKD (chronic kidney disease) stage 3, GFR 30-59 ml/min Status: Chronic Current Visit: Yes (8) Bradycardia Status: Acute Current Visit: Yes Assessment and Plan for All Diagnoses:: Plan: 1. Schedule patient for PPM on Thursday (08/09/18) due to tachy-bradycardia syndrome. 2. Patient needs to remain off Eliquis. 3. Continue current medication regimen. 4. Continue to monitor patient for heart arrhythmia or abnormalities.
--- NOTE | 2018-08-07 07:08 | Progress Note ---
Internal Medicine - PN: Subj *Date: 08/07/18 *Time: 07:53 Interval history: overnight heart rate and blood pressure have been more elevated. No bradycardia noted. Elevated HR with Afib as her ashely blocks wear off. No Fevers, N/V/D, CP; c/o mild SOA with exertion. tolerating regular diet. Exam Vital signs and Labs for Last 24 Hours: Temp Pulse Resp BP Pulse Ox 98.6 F 74 19 154/76 H 94 L 08/07/18 04:00 08/07/18 04:00 08/07/18 04:00 08/07/18 04:00 08/07/18 04:00 Laboratory Results - last 24 hr 08/06/18 11:39: POC Glucose 218 H 08/06/18 16:36: POC Glucose 174 H 08/06/18 20:29: POC Glucose 198 H 08/07/18 06:08: POC Glucose 149 H I & O for Last 24 hours: Intake & Output 08/04/18 08/05/18 08/06/18 08/07/18 23:59 23:59 23:59 23:59 Intake Total 3113 / 3113 2005 / 2005 537 / 537 Output Total 3400 / 3400 Balance 3113 / 3113 -1394 / -1394 537 / 537 Weight 79.124 kg 80.513 kg 82.1 kg - *Routine HEENT Exam Head: Present: normocephalic, atraumatic Eye: Present: EOMI ENT: Present: mucous membranes moist - *Routine Neck Exam Present: supple. Absent: lymphadenopathy - *Routine Respiratory Exam Present: CTA bilaterally. Absent: prolonged expiratory phase, wheezes, crackles - *Routine Cardiovascular Exam Present: irregularly irregular. Absent: murmur - *Routine Abdominal Exam Present: soft, normoactive bowel sounds - *Routine Rectal Exam Patient deferred: visual exam - *Routine Exam Patient deferred: external exam - *Routine Extremities Exam Present: edema (trace). Absent: cyanosis, clubbing - *Routine Skin Exam Present: intact. Absent: cyanosis, erythema - *Routine Neurological Exam Present: alert, oriented X3. Absent: altered mental status Assessment and Plan (1) Angina pectoris Start date: 08/06/18 Current visit: Yes Status: Acute Category: Medical Code(s): I20.9 - Angina pectoris, unspecified (2) Atrial fibrillation Current visit: No Status: Chronic Qualifiers: Atrial fibrillation type: chronic Qualified Code(s): I48.2 - Chronic atrial fibrillation Category: Medical Code(s): I48.91 - Unspecified atrial fibrillation Patient currently off all ashely blockade with cessation of diltiazem and bisoprolol. -Plan to restart bisoprolol at 5 mg if he goes back into A. fib with RVR and is symptomatic. -Restart bisoprolol 5 mg once daily if heart rate sustained greater than 130 with symptoms such as shortness of breath, fatigue, chest tightness -Continue to hold Eliquis in the setting of planned pacemaker placement Thursday (3) Coronary arteriosclerosis Current visit: No Status: Chronic Category: Medical Code(s): I25.10 - Atherosclerotic heart disease of [place] coronary artery without angina pectoris (4) HLD (hyperlipidemia) Current visit: No Status: Chronic Qualifiers: Hyperlipidemia type: mixed hyperlipidemia Qualified Code(s): E78.2 - Mixed hyperlipidemia Category: Medical Code(s): E78.5 - Hyperlipidemia, unspecified (5) Hypertensive heart disease Current visit: No Status: Chronic Qualifiers: Heart failure presence: without heart failure Qualified Code(s): I11.9 - Hypertensive heart disease without heart failure Category: Medical Code(s): I11.9 - Hypertensive heart disease without heart failure (6) Diabetes mellitus Current visit: Yes Status: Acute Qualifiers: Diabetes mellitus type: type 2 Diabetes mellitus chcf insulin use: with chcf use Diabetes mellitus complication status: with circulatory complication Diabetes mellitus complication detail: with other circulatory complications Qualified Code(s): E11.59 - Type 2 diabetes mellitus with other circulatory complications; Z79.4 - jail (current) use of insulin Category: Medical Code(s): E11.9 - Type 2 diabetes mellitus without complications (7) CKD (chronic kidney disease) stage 3, GFR 30-59 ml/min Current visit: Yes Status: Chronic Category: Medical Code(s): N18.3 - Chronic kidney disease, stage 3 (moderate) (8) Bradycardia Current visit: Yes Status: Acute Category: Medical Code(s): R00.1 - Bradycardia, unspecified - Assessment and plan all Dx Assessment and Plan for all problems:: Patient continues to require inpatient management given labile heart rate, planned pacemaker for Thursday.
--- NOTE | 2018-08-08 08:40 | Progress Note ---
Internal Medicine - PN: Subj *Date: 08/08/18 *Time: 08:39 Interval history: Patient felt well overnight. Tolerated smaller dose of bisoprolol well. No evidence of significant tachycardia. Exam Vital signs and Labs for Last 24 Hours: Temp Pulse Resp BP Pulse Ox 97.9 F 125 H 18 109/71 L 97 08/08/18 08:00 08/08/18 08:00 08/08/18 08:00 08/08/18 08:00 08/08/18 08:00 Laboratory Results - last 24 hr 08/07/18 11:40: POC Glucose 214 H 08/07/18 16:18: POC Glucose 155 H 08/07/18 21:17: POC Glucose 315 H* 08/08/18 06:09: POC Glucose 183 H I & O for Last 24 hours: Intake & Output 08/05/18 08/06/18 08/07/18 08/08/18 11:59 11:59 11:59 11:59 Intake Total 1613 / 1613 2546 / 2546 1497 / 1497 960 / 960 Output Total 2200 / 2200 1560 / 1560 Balance 1613 / 1613 346 / 346 -63 / -63 960 / 960 Weight 177 lb 8 oz 181 lb 180 lb 15.992 oz Narrative: Patient is pleasant, talkative, oriented x3. Sitting up in a chair. Lungs are clear, abdomen soft, no edema. Heart rate irregular in the low 90s. ENT exam clear. Assessment and Plan (1) Angina pectoris Start date: 08/06/18 Current visit: Yes Status: Acute Category: Medical Code(s): I20.9 - Angina pectoris, unspecified (2) Atrial fibrillation Current visit: No Status: Chronic Qualifiers: Atrial fibrillation type: chronic Qualified Code(s): I48.2 - Chronic atrial fibrillation Category: Medical Code(s): I48.91 - Unspecified atrial fibrillation (3) Coronary arteriosclerosis Current visit: No Status: Chronic Category: Medical Code(s): I25.10 - Atherosclerotic heart disease of [place] coronary artery without angina pectoris (4) HLD (hyperlipidemia) Current visit: No Status: Chronic Qualifiers: Hyperlipidemia type: mixed hyperlipidemia Qualified Code(s): E78.2 - Mixed hyperlipidemia Category: Medical Code(s): E78.5 - Hyperlipidemia, unspecified (5) Hypertensive heart disease Current visit: No Status: Chronic Qualifiers: Heart failure presence: without heart failure Qualified Code(s): I11.9 - Hypertensive heart disease without heart failure Category: Medical Code(s): I11.9 - Hypertensive heart disease without heart failure (6) Diabetes mellitus Current visit: Yes Status: Acute Qualifiers: Diabetes mellitus type: type 2 Diabetes mellitus jail insulin use: with ad terminal makeup operator use Diabetes mellitus complication status: with circulatory complication Diabetes mellitus complication detail: with other circulatory complications Qualified Code(s): E11.59 - Type 2 diabetes mellitus with other circulatory complications; Z79.4 - care home (current) use of insulin Category: Medical Code(s): E11.9 - Type 2 diabetes mellitus without complications (7) CKD (chronic kidney disease) stage 3, GFR 30-59 ml/min Current visit: Yes Status: Chronic Category: Medical Code(s): N18.3 - Chronic kidney disease, stage 3 (moderate) (8) Bradycardia Current visit: Yes Status: Acute Category: Medical Code(s): R00.1 - Bradycardia, unspecified - Assessment and plan all Dx Assessment and Plan for all problems:: No changes in plan. Continue very low-dose beta blockade to help with atrial fibrillation rate control while awaiting pacemaker because of significant bradycardia.
[2018-08-09 06:41] LABS: Basophils # 0.1 K/mm3 (0-0.2); Basophils % 0.8 % (0.1-2.0); Eosinophils # 0.1 K/mm3 (0.0-0.4); Hematocrit 38.5 % (37.0-47.0); Hemoglobin 12.6 g/dL (12.2-16.2); Lymphocytes % 29.9 % (10-50); Mean Corpuscular HGB Conc 32.6 g/dL (31.8-35.4); Mean Corpuscular Hemoglobin 29.9 pg (27.0-31.2); Mean Corpuscular Volume 91.7 fl (81-99); Mean Platelet Volume 8.4 fl (7.4-10.4); Monocytes # 0.5 K/mm3 (0.1-1.0); Monocytes % 7.3 % (1.7-9.3); Neutrophils # 4.1 K/mm3 (1.8-7.8); Platelet Count 200 K/mm3 (142-424); Red Cell Distribution Width 13.9 % (11.5-17.5); White Blood Count 6.8 K/mm3 (4.8-10.8)
[2018-08-09 06:59] LABS: Albumin/Globulin Ratio 0.7 (1.1-1.8); Anion Gap 12.5 mEq/L (5-15); Bilirubin,Total 0.3 mg/dL (0.2-1.0); Calcium 8.5 mg/dL (8.5-10.1); Globulin 4.2 gm/dl (1.3-3.2); Potassium 4.5 mmoL/L (3.5-5.1); Total Protein,Serum 7.2 gm/dL (6.4-8.2)
--- NOTE | 2018-08-09 07:43 | Progress Note ---
Subjective Date: 08/09/18 Time: 07:38 Principal diagnosis: Angina, chest pain Interval history: 63 yo WF in bed in NAD. Telemetry shows A. fib with RVR on low dose beta milad. Questions regarding PPM placement answered. No complaints. Exam Vital signs and Labs for Last 24 Hours: Temp Pulse Resp BP Pulse Ox 97.8 F 128 H 18 123/72 97 08/09/18 04:00 08/09/18 04:00 08/09/18 04:00 08/09/18 04:00 08/09/18 04:00 Laboratory Results - last 24 hr 08/08/18 11:00: POC Glucose 188 H 08/08/18 16:11: POC Glucose 207 H 08/08/18 20:06: POC Glucose 305 H* 08/09/18 06:20: POC Glucose 245 H 08/09/18 06:26: WBC 6.8, RBC 4.20, Hgb 12.6, Hct 38.5, MCV 91.7, MCH 29.9, MCHC 32.6, RDW 13.9, Plt Count 200, MPV 8.4, Neut % (Auto) 60.0, Lymph % (Auto) 29.9, [place] % (Auto) 7.3, Eos % (Auto) 2.0, Baso % (Auto) 0.8, Neut # (Auto) 4.1, Lymph # (Auto) 2.0, [place] # (Auto) 0.5, Eos # (Auto) 0.1, Baso # (Auto) 0.1 08/09/18 06:26: Sodium 137, Potassium 4.5, Chloride 101, Carbon Dioxide 28, Anion Gap 12.5, BUN 26 H, Creatinine 1.27 H, Estimated Creat Clear 58, Estimated GFR 42 L, Est GFR ( Amer) 51 L, Glucose 259 H, Calcium 8.5, Total Bilirubin 0.3, AST 18, ALT 26, Alkaline Phosphatase 108, Total Protein 7.2, Albumin 3.0 L, Globulin 4.2 H, Albumin/Globulin Ratio 0.7 L I & O for Last 24 hours: Intake & Output 08/06/18 08/07/18 08/08/18 08/09/18 11:59 11:59 11:59 11:59 Intake Total 2546 / 2546 1497 / 1497 960 / 960 1710 / 1710 Output Total 2200 / 2200 1560 / 1560 Balance 346 / 346 -63 / -63 960 / 960 1710 / 1710 Weight 181 lb 180 lb 15.992 oz - *Routine Respiratory Exam Present: CTA bilaterally. Absent: accessory muscle use, rales, rhonchi, wheezes - *Routine Cardiovascular Exam Present: RRR, tachycardia. Absent: murmur, gallop, rubs Progress Note: A&P (1) Angina pectoris Status: Acute Current Visit: Yes (2) Atrial fibrillation Status: Chronic Current Visit: No (3) Coronary arteriosclerosis Status: Chronic Current Visit: No (4) HLD (hyperlipidemia) Status: Chronic Current Visit: No (5) Hypertensive heart disease Status: Chronic Current Visit: No (6) Diabetes mellitus Status: Acute Current Visit: Yes (7) CKD (chronic kidney disease) stage 3, GFR 30-59 ml/min Status: Chronic Current Visit: Yes (8) Bradycardia Status: Acute Current Visit: Yes Assessment and Plan for All Diagnoses:: 1. Proceed with PPM today 2. Will increase beta milad post-op 3. Will restart eliquis tomorrow 4. Recommend keeping overnight for med adjustment.
--- NOTE | 2018-08-09 08:16 | Progress Note ---
[facility] Anesthesia Checklist - Patient Identification Patient Identification: Arm Band, Verbal (Name & ) - Structural Data Admitted From: Home Planned Operative Procedure/s: Dual chamber pacemaker placement Consent for Planned Operative Procedure(s) Verified: Yes Verified Documents: Surgical Consent, History and Physical - NPO Status Verified Time NPO: 00:00 - Chart Verification Results Verified: None - Additional verifications Anesthesia Reactions: No - Airway Assessment C-Spine Mobility Assessed: Yes TMJ Mobility Assessed: Yes Dentition: Good Dentition - Neurological Assessment Level of Consciousness: Awake Hx Seizures: No Numbness or tingling in extremities: No - Anesthesia Plan Anesthesia Risk discussed: Yes Anesthesia Plan: Verified ASA Class: III Anesthesia Type: MAC [facility] History I have reviewed the patient's past medical history: Yes Medical History: Reports:: Arrhythmia (Atrial flutter), Coronary Artery Disease, Diabetes Mellitus Type 2, Gastroesophageal Reflux Disease(GERD), Hyperlipidemia, Hypertension, Renal Insufficiency Other Medical History: Reports: Hypothyroidism Other Surgeries: Yes: Angioplasty, Cardiac Catheterization, Cholecystectomy, Hysterectomy-Partial Amputation: No Fractures: No - *Social History Educational Level: Attended College Smoking Status: Never smoker Alcohol Intake: never Occupational Status: retired Housing: house Household Members: spouse - Psychiatric History Expresses thoughts of harming self/others: None Suicide Plan Description: No Plan *Family Hx:: Diabetes
--- NOTE | 2018-08-09 11:07 | Progress Note ---
[facility] Anesthesia Record Part I Intake, IV Amount: 550 Estimated blood loss (mL): 15 Urine output (mL): 0 Blood Products used (#): none Blood Pressure: 145/71 SaO2: 97 Pulse Rate: 125 (Afib) Respiratory Rate: 16 Temperature: 97.0 F Patient is:: Awake, Stable Stable to PACU at:: 11:03
--- NOTE | 2018-08-09 11:07 | Progress Note ---
[facility] Anesthesia Record Part II Discharge Time: 11:33 Destination: Medical Surgical Department PACU nurse assessment reviewed?: Yes Patient Condition:: Good Anesthesia Complications:: None
--- NOTE | 2018-08-09 13:45 | Progress Note ---
Internal Medicine - PN: Subj *Date: 08/09/18 *Time: 13:42 Interval history: Did well with pacemaker placement - no pain now. Feels good. Exam Vital signs and Labs for Last 24 Hours: Temp Pulse Resp BP Pulse Ox 97.2 F L 126 H 18 167/89 H 96 08/09/18 13:15 08/09/18 13:15 08/09/18 13:15 08/09/18 13:15 08/09/18 13:15 Laboratory Results - last 24 hr 08/08/18 16:11: POC Glucose 207 H 08/08/18 20:06: POC Glucose 305 H* 08/09/18 06:20: POC Glucose 245 H 08/09/18 06:26: WBC 6.8, RBC 4.20, Hgb 12.6, Hct 38.5, MCV 91.7, MCH 29.9, MCHC 32.6, RDW 13.9, Plt Count 200, MPV 8.4, Neut % (Auto) 60.0, Lymph % (Auto) 29.9, [place] % (Auto) 7.3, Eos % (Auto) 2.0, Baso % (Auto) 0.8, Neut # (Auto) 4.1, Lymph # (Auto) 2.0, [place] # (Auto) 0.5, Eos # (Auto) 0.1, Baso # (Auto) 0.1 08/09/18 06:26: Sodium 137, Potassium 4.5, Chloride 101, Carbon Dioxide 28, Anion Gap 12.5, BUN 26 H, Creatinine 1.27 H, Estimated Creat Clear 58, Estimated GFR 42 L, Est GFR ( Amer) 51 L, Glucose 259 H, Calcium 8.5, Total Bilirubin 0.3, AST 18, ALT 26, Alkaline Phosphatase 108, Total Protein 7.2, Albumin 3.0 L, Globulin 4.2 H, Albumin/Globulin Ratio 0.7 L 08/09/18 11:56: POC Glucose 163 H I & O for Last 24 hours: Intake & Output 08/07/18 08/08/18 08/09/18 08/10/18 11:59 11:59 11:59 11:59 Intake Total 1497 / 1497 960 / 960 2260 / 2260 360 / 360 Output Total 1560 / 1560 Balance -63 / -63 960 / 960 2260 / 2260 360 / 360 Weight 180 lb 15.992 oz - Constitutional no acute distress - *Routine HEENT Exam Head: Present: normocephalic Eye: Present: EOMI ENT: Present: mucous membranes moist - *Routine Neck Exam Present: supple, full ROM. Absent: JVD - *Routine Respiratory Exam Present: CTA bilaterally - *Routine Cardiovascular Exam Present: RRR, Normal S1, Normal S2 - *Routine Abdominal Exam Present: soft, normoactive bowel sounds - *Routine Extremities Exam Absent: clubbing, edema Assessment and Plan (1) Angina pectoris Start date: 08/06/18 Current visit: Yes Status: Acute Category: Medical Code(s): I20.9 - Angina pectoris, unspecified (2) Atrial fibrillation Current visit: No Status: Chronic Qualifiers: Atrial fibrillation type: chronic Qualified Code(s): I48.2 - Chronic atrial fibrillation Category: Medical Code(s): I48.91 - Unspecified atrial fibrillation (3) Coronary arteriosclerosis Current visit: No Status: Chronic Category: Medical Code(s): I25.10 - Atherosclerotic heart disease of [place] coronary artery without angina pectoris (4) HLD (hyperlipidemia) Current visit: No Status: Chronic Qualifiers: Hyperlipidemia type: mixed hyperlipidemia Qualified Code(s): E78.2 - Mixed hyperlipidemia Category: Medical Code(s): E78.5 - Hyperlipidemia, unspecified (5) Hypertensive heart disease Current visit: No Status: Chronic Qualifiers: Heart failure presence: without heart failure Qualified Code(s): I11.9 - Hypertensive heart disease without heart failure Category: Medical Code(s): I11.9 - Hypertensive heart disease without heart failure (6) Diabetes mellitus Current visit: Yes Status: Acute Qualifiers: Diabetes mellitus type: type 2 Diabetes mellitus manager terminal insulin use: with manager terminal use Diabetes mellitus complication status: with circulatory complication Diabetes mellitus complication detail: with other circulatory complications Qualified Code(s): E11.59 - Type 2 diabetes mellitus with other circulatory complications; Z79.4 - halfway (current) use of insulin Category: Medical Code(s): E11.9 - Type 2 diabetes mellitus without complications (7) CKD (chronic kidney disease) stage 3, GFR 30-59 ml/min Current visit: Yes Status: Chronic Category: Medical Code(s): N18.3 - Chronic kidney disease, stage 3 (moderate) (8) Bradycardia Current visit: Yes Status: Acute Category: Medical Code(s): R00.1 - [place] cardia, unspecified - Assessment and plan all Dx Assessment and Plan for all problems:: Doing well with pacer,... no change in prior plans.. probably dc in am.
--- NOTE | 2018-08-09 14:41 | Procedure Note ---
[facility] Pacemaker - Pacemaker Placement Date of Procedure:: 08/09/18 Time of Procedure:: 11:00 Procedure Performed:: Pocket formation for permanent pacemaker placement Placement of atrial sensing pacing lead into the right atrial appendage Placement of ventricular sensing pacing lead into the right ventricular apex Permanent pacemaker placement Preoperative Diagnosis:: Symptomatic Bradycardia Sick Sinus Syndrome Complications:: None Estimated Blood Loss (ml):: 10 Technique:: 1% Lidocaine with epinephrine used to anesthetize the left anterior aspect of the chest.Scalpel was used to make the initial cutaneous incision while electrocautery was used to dissect down into the fascia. The fascia was lifted off the pectoralis muscle and digitally manipulated creating a pocket for the pacemaker. The patient was then placed in Trendelenburg position and the subclavian vein was accessed via the Selinger technique. A 7 [place] sheath was placed under fluoroscopic guidance into the subclavian vein. Following this, an additional wire was placed into the sheath. Now, with two wires inside the 7 [place] sheath, this sheath was removed, maintaining the two wires in the subclavian vein. The sheath and dilator was then placed over one of the wires while keeping the other wire in place within the subclavian vein. The dilator was removed from the sheath. Using fluoroscopic guidance, the ventricular lead was placed into the right ventricular apex, screwed and secured into place. Electronic interrogation proved acceptable thresholds and voltage within the lead. Using 3-0 silk, the ventricular lead was then secured into place. Lead was secured to the fascia using the 3-0 silk. Following this, the sheath was pealed away. An additional 7 [place] fresh sheath and dilator was placed over the existing wire. Using fluoroscopic guidance, the atrial lead was then placed into the right atrial appendage and screwed and secured in place. Electrical interrogation demonstrated acceptable thresholds and voltage numbers. The atrial lead was then secured into place using 3-0 silk and then the lead was finally secured to the fascia. With both the atria and ventricular leads in place with acceptable thresholds and sensitivity, the atrial and ventricular leads were placed into the pacemaker generator. Pacemaker generator was then secured to the fascia using 3-0 silk. 1 gram of Ancef was used to flush the pocket. Following the pacemaker being secured to the fascia and in place, Monocryl was used to close the subcutaneous layers while zak were used to close the cutaneous layer. A pressure dressing was placed and the patient was transferred to the postop holding area in stable condition for postoperative care. - Interrogation Narrative: Generator Model # [id number] Serial # [id number] RA Model # [id number] Serial # [id number] P-wave 2-3 mV Impedance 630 Ohms Threshold Pulse Width RVA Model #[id number] Serial # [id number] R-wave >12 mV Impedance 688 Ohms Threshold 0.5 V Pulse Width .4 ms Pacing Parameters: Mode: DDIR Base/Max Track: 70/110 NO D/S @ 10 VOLTS Impression:: Successful pocket formation for permanent pacemaker placement Successful placement of atrial and sensing pacing lead into the right atrial appendage Successful placement of ventricular sensing and pacing lead into the right ventricular apex Successful permanent pacemaker placement Plan: Postoperative wound care
--- NOTE | 2018-08-09 21:41 | Discharge Summary ---
General - General Admission date:: 08/03/18 Discharge date: 08/10/18 HPI HPI: Ms. Oates is a 63-year-old female with history of coronary artery disease status post stents in 2015 and 17, Diabetes on insulin, CKD 3, hypertension, hyperlipidemia, hypothyroidism, and atrial flutter. She presented to the emergency room at [facility] due to recurrent and progressive chest pain over the past 3 days. She describes a pressure, substernally, that radiates to her back and neck associated with GI symptoms including nausea and emesis. She additionally has had a warm/flushing sensation from about mid chest up for the past day with these episodes. She denies syncope, tamara chest pain or stabbing sensations. Episodes last approximately 30 seconds and self resolved. Initial EKG in the ER showed a flutter. Troponins so far are normal. Cardiology was consulted for further assessment. Recommended admission and heart cath in the morning. Admitted to medicine for further management Denies headache, confusion, diarrhea, shortness of breath, syncope. Hospital Course Hospital Course: Ms. Oates was admitted to medicine for management of her angina pectoris. Etiology was consulted. Heart cath was performed on day 2 of hospitalization and found to have patent stents that were previously placed by Dr. Foss. During admission patient noted to have significant bradycardic episodes while on telemetry. Cardia drop down and and patient was symptomatic. She required a dopamine drip multiple times to normalize her heart rate. Keeley blockade was stopped with cessation of her Cardizem and bisoprolol. Eliquis was held as her symptomatic bradycardia was determined to be the likely etiology of her anginal symptoms. After 5 days of holding Eliquis, pacemaker was placed. Patient read on previous dose of keeley blockade. Had no further episodes. Remained hemodynamic stable. Meeting criteria for discharge home. On day of discharge patient was free of shortness of breath, chest pain, palpitations, lower extremity edema. Tolerating regular diet. Objective Vital signs: Temp Pulse Resp BP Pulse Ox 98.0 F 127 H 18 122/86 93 L 08/09/18 20:00 08/09/18 20:00 08/09/18 20:00 08/09/18 20:00 08/09/18 20:54 - *Routine HEENT Exam Head: Present: normocephalic, atraumatic Eye: Present: EOMI, PERRL ENT: Present: mucous membranes moist - *Routine Neck Exam Present: supple, full ROM - Routine Chest/Breast/Axilla Exam Chest wall: Present: tenderness (Mild at surgical site around the insertion of pacemaker, no surrounding erythema or bleeding) - *Routine Respiratory Exam Present: CTA bilaterally. Absent: accessory muscle use, prolonged expiratory phase, wheezes, crackles - *Routine Cardiovascular Exam Present: Normal S1, irregularly irregular. Absent: murmur - *Routine Abdominal Exam Present: soft, normoactive bowel sounds - *Routine Rectal Exam Patient deferred: visual exam - *Routine Exam Patient deferred: external exam - *Routine Extremities Exam Absent: cyanosis, clubbing, edema - *Routine Skin Exam Present: intact. Absent: cyanosis, erythema - *Routine Neurological Exam Present: alert, oriented X3, CN II-XII intact. Absent: altered mental status Results Labs on day of discharge: Labs from last 24 hours 08/09/18 08/09/18 08/09/18 16:14 11:56 06:26 WBC RBC Hgb Hct MCV MCH MCHC RDW Plt Count MPV Neut % (Auto) Lymph % (Auto) Lanier % (Auto) Eos % (Auto) Baso % (Auto) Neut # (Auto) Lymph # (Auto) Lanier # (Auto) Eos # (Auto) Baso # (Auto) Sodium 137 Potassium 4.5 Chloride 101 Carbon Dioxide 28 Anion Gap 12.5 BUN 26 H Creatinine 1.27 H Estimated Creat Clear 58 Estimated GFR 42 L Est GFR ( Amer) 51 L Glucose 259 H POC Glucose 222 H 163 H Calcium 8.5 Total Bilirubin 0.3 AST 18 ALT 26 Alkaline Phosphatase 108 Total Protein 7.2 Albumin 3.0 L Globulin 4.2 H Albumin/Globulin Ratio 0.7 L 08/09/18 08/09/18 06:26 06:20 WBC 6.8 RBC 4.20 Hgb 12.6 Hct 38.5 MCV 91.7 MCH 29.9 MCHC 32.6 RDW 13.9 Plt Count 200 MPV 8.4 Neut % (Auto) 60.0 Lymph % (Auto) 29.9 Lanier % (Auto) 7.3 Eos % (Auto) 2.0 Baso % (Auto) 0.8 Neut # (Auto) 4.1 Lymph # (Auto) 2.0 Lanier # (Auto) 0.5 Eos # (Auto) 0.1 Baso # (Auto) 0.1 Sodium Potassium Chloride Carbon Dioxide Anion Gap BUN Creatinine Estimated Creat Clear Estimated GFR Est GFR ( Amer) Glucose POC Glucose 245 H Calcium Total Bilirubin AST ALT Alkaline Phosphatase Total Protein Albumin Globulin Albumin/Globulin Ratio DS: Diagnosis - Discharge Diagnosis (1) Angina pectoris Status: Resolved (2) Atrial fibrillation Status: Chronic (3) Coronary arteriosclerosis Status: Chronic (4) HLD (hyperlipidemia) Status: Chronic (5) Hypertensive heart disease Status: Chronic (6) Diabetes mellitus Status: Chronic (7) CKD (chronic kidney disease) stage 3, GFR 30-59 ml/min Status: Chronic (8) Bradycardia Status: Acute Discharge Plan - Patient Discharge Instructions ACTIVITY: Continue current activity, Ambulate as tolerated, No heavy lifting DIET: continue same diet Patient Instructions: Atrial Fibrillation, Angina, DI for Angina, DI for Cardiac Catheterization, DI for Surgical Site Infection - Follow up Plan Follow up with: García Foss MD [Primary Care Provider] - Disposition: Home, Self-Detention Medications: Home Medications Medication Instructions Recorded Confirmed Type ergocalciferol (vitamin D2) 50,000 50,000 unit PO QWEEK 12/16/17 08/03/18 History unit capsule glipizide 10 mg tablet 10 mg PO BID 12/16/17 08/03/18 History levothyroxine 88 mcg capsule 88 mcg PO DAILY cap 12/16/17 08/03/18 History omega-3 fatty acids 1,000 mg 1,000 mg PO DAILY cap 12/16/17 08/03/18 History capsule Apixaban [Eliquis] 5 mg PO BID 08/03/18 08/03/18 History Bisoprolol Fumarate [Bisoprolol 10 mg PO BID 08/03/18 08/03/18 History 10mg Tablet] Losartan Potassium [Cozaar] 100 mg PO DAILY 08/03/18 08/03/18 History Pantoprazole Sodium [Protonix 40mg 40 mg PO DAILY 08/03/18 08/09/18 History tablet] dilTIAZem HCl [Diltiazem 240mg 240 mg PO BID 08/03/18 08/03/18 History 24Hr ER Cap] Prescriptions/Medication Reconciliation: New Atorvastatin Calcium [Lipitor 40mg Tablet] 80 mg PO HS 30 Days #30 tablet Aspirin [Aspirin 81mg chewable tab] 81 mg PO DAILY 30 Days #30 tab.chew Hydrocodone/Acetaminophen [Lortab 10/325mg tablet] 0.5 - 1 tab PO Q6HP PRN 3 Days #12 tab PRN Reason: pain Continue glipizide 10 mg tablet 10 mg PO BID levothyroxine 88 mcg capsule 88 mcg PO DAILY cap omega-3 fatty acids 1,000 mg capsule 1,000 mg PO DAILY cap ergocalciferol (vitamin D2) 50,000 unit capsule 50,000 unit PO QWEEK nitroglycerin 0.4 mg sublingual tablet 0.4 mg SUBLINGUAL Q5M PRN #30 tab PRN Reason: chest pain Pantoprazole Sodium [Protonix 40mg tablet] 40 mg PO DAILY Losartan Potassium [Cozaar] 100 mg PO DAILY dilTIAZem HCl [Diltiazem 240mg 24Hr ER Cap] 240 mg PO BID Bisoprolol Fumarate [Bisoprolol 10mg Tablet] 10 mg PO BID Apixaban [Eliquis] 5 mg PO BID Changed Insulin Degludec [Tresiba Flextouch U-100] 50 unit SUB-Q HS #0 ml
--- NOTE | 2018-08-10 08:24 | Progress Note ---
Subjective Date: 08/10/18 Time: 08:22 Principal diagnosis: Angina, chest pain Interval history: 63-year-old white female in bed in no acute distress. Telemetry shows heart rate in the 80s with intermittent pacing. His MCV 240 mg daily was restarted last night due to elevated heart rate. The combination of bisoprolol and Cardizem has brought heart rate down overnight. Exam Vital signs and Labs for Last 24 Hours: Temp Pulse Resp BP Pulse Ox 97.9 F 72 16 92/56 L 97 08/10/18 08:00 08/10/18 08:00 08/10/18 08:00 08/10/18 08:00 08/10/18 08:00 Laboratory Results - last 24 hr 08/09/18 11:56: POC Glucose 163 H 08/09/18 16:14: POC Glucose 222 H 08/09/18 20:44: POC Glucose 226 H 08/10/18 06:23: POC Glucose 215 H I & O for Last 24 hours: Intake & Output 08/07/18 08/08/18 08/09/18 08/10/18 11:59 11:59 11:59 11:59 Intake Total 1497 / 1497 960 / 960 2260 / 2260 1873 / 1873 Output Total 1560 / 1560 Balance -63 / -63 960 / 960 2260 / 2260 1873 / 1873 Weight 180 lb 15.992 oz 176 lb 3 oz - *Routine Respiratory Exam Present: CTA bilaterally. Absent: accessory muscle use, rales, rhonchi, wheezes - *Routine Cardiovascular Exam Present: RRR. Absent: murmur, gallop, rubs Progress Note: A&P (1) Angina pectoris Status: Acute Current Visit: Yes (2) Atrial fibrillation Status: Chronic Current Visit: No (3) Coronary arteriosclerosis Status: Chronic Current Visit: No (4) HLD (hyperlipidemia) Status: Chronic Current Visit: No (5) Hypertensive heart disease Status: Chronic Current Visit: No (6) Diabetes mellitus Status: Acute Current Visit: Yes (7) CKD (chronic kidney disease) stage 3, GFR 30-59 ml/min Status: Chronic Current Visit: Yes (8) Bradycardia Status: Acute Current Visit: Yes Assessment and Plan for All Diagnoses:: 1. Agree with discharge home. 2. Restart Eliquis therapy due to history of atrial fibrillation. Continue low-dose aspirin 81 mg daily due to history of coronary artery disease with previous stenting. 3. Continue bisoprolol 10 mg twice daily in addition to Cardizem CD 240 mg daily. 3. We will see her back in 1 week for follow-up or sooner if needed
== END 2018-08-10 12:40 | disposition home or self-care (01) ==
LOC: 2ND 12:53 → ER 12:53 → OBSVTOIN 16:44 → 2ND 16:45 → ICU 08-05 16:48 → 2ND 08-06 13:37
PROVIDERS: ADMIT Internal Medicine Adolescent Medicine; ATTEND Internal Medicine Adolescent Medicine

== ENCOUNTER → 2019-01-10 11:32 | Outpatient (CLI) | payer OTHER, SELFPAY ==
--- NOTE | 2019-01-10 11:36 | CA_ITS ---
PROCEDURE: 2-D M-mode and color Doppler study INDICATIONS FOR THE TEST: Chest pain COPD Heart Murmur Tobacco Smoking Palpitations Fatigue Syncope Edema HypertensionXDiabetes MellitusX Rheumatic Fever SOB ROWE Obesity HyperlipidemiaX Family History HD Additional History CHRONIC AF,PP,CKD,CAD PATIENT INFORMATION HEIGHT: 63 WEIGHT:179 GENDER: Female B/P:122/73 2-D/M-MODE INTERPRETATION: 2-D MEASUREMENTS OBSERVED VALUES IN CMS Right Ventricular Dimension (RVDd) 1.9 Interventricular Septum (Thickness)(IVsd) 1.0 Left Ventricular Internal Dimensions(LVIDd) 4.9 Left Ventricular Posterior Wall (Thickness)(LVPWd) .7 Aortic Root 2.4 Aortic Cusp Separation 1.3 Left Atrial Dimensions (LAD) 3.3 2D 1. Left atrium is qualitatively moderately enlarged, left ventricle is normal size, mild concentric left ventricular hypertrophy, visually estimated ejection fraction of 55-60% with no regional wall motion abnormality. 2. The right atrium and right ventricle are moderately enlarged with normal contractility, there is a pacemaker leads in right atrium and right ventricle. 3. The aortic valve is thickened and calcified leaflet continue to display mobility. 4. Mitral valve has dense mitral annular calcification, which extends and both anterior and posterior mitral leaflet. 5. The pulmonic valve is poorly visualized. 6. The tricuspid valve is grossly normal. 7. No significant pericardial effusion noted. DOPPLER INTERROGATION: Doppler interrogation of the aortic, mitral and tricuspid valvular presence of moderate mitral and mild tricuspid regurgitation, tricuspid regurgitation jet velocity is inadequate for calculation of the right ventricular systolic pressure, diastolic parameters are inconclusive. Inferior vena cava is not well visualized. CONCLUSION: 1. Moderately enlarged left atrium, normal left ventricular size, mild concentric left ventricular hypertrophy, visually estimated ejection fraction 55-60% with no regional wall motion abnormality, diastolic parameters are inconclusive. 2. Moderately enlarged right ventricle with normal contractility. 3. Moderate mitral and mild tricuspid regurgitation 4. No significant pericardial effusion noted.
== END ==
PROVIDERS: Visit Provider Urology
DX: R06.02 Shortness of breath (principal); R00.2 Palpitations; I11.9 Hypertensive heart disease without heart failure; I25.10 Atherosclerotic heart disease of native coronary artery without angina pectoris; I48.2 Chronic atrial fibrillation; E78.2 Mixed hyperlipidemia; Z95.0 Presence of cardiac pacemaker
CPT/HCPCS: 93306

== ENCOUNTER → 2021-04-15 10:10 | Outpatient (CLI) | payer MEDICARE, SELFPAY ==
--- NOTE | 2021-04-15 10:13 | CA_ITS ---
APPROVED REPORT EXAM: Comprehensive 2D, Doppler, and color-flow Echocardiogram [employer] Executive: Melissa Fontana, PEDRO LUIS, RVS Ht: 5 ft 4 in Wt: 184lbs BSA: 1.89 BP: 138/80 mmHg Indications: Afib, Permanent pacemaker, CAD, HTN, HLD, MR, TR 2D Dimensions IVSd 0.78 cm LVEF (Visual) 67.30 % PWd 0.92 cm LA Volume 55.30 mL LVDd 4.01 cm LA Volume Index 29.30 mL/m2 (M/F) 16-34 LVDs 2.53 cm Left Atrium 4.04 cm LVOT 1.61 cm (M/F) 1.5-2.5 M-Mode Dimensions LA Diam 3.73 cm (1.9-4.0) Ao Diam 2.65 cm (2.0-3.7) EPSs 0.47 cm TAPSE 2.37 (<1.7) LV Diastology E Decel Time 220.00 (160-240 msec) E/A Ratio 1.26 MED E' 5.50 (< 7 cm/sec) MED A' 5.40 cm/s E'/MED E' Ratio 18.84 (>14) LAT E' 7.80 (<10 cm/sec) LAT A' 5.00 cm/s E/LAT E' Ratio 13.28 (>14) Aortic Valve LVOT Max 107.00 (70-110 cm/s) LVOT VTI 27.75 cm AoV Peak Aron. 148.00 (50-130 cm/s) AO Peak GR. 8.80 mmHg AO Mean GR. 4.50 (<5 mmHg) AO VTI 32.48 (18-25 cm) LILIBETH (VTI) 1.74 (2.5-4.5 cm2) Mitral Valve MV E Max Aron. 104.00 (40-130 cm/s) MV A Velocity 82.00 (40-130 cm/s) E/A Ratio 1.26 MV Decel. Time 220.00 (160-240 ms) MV PHT 64.00 ms Pulmonary Valve PV Peak Velocity 110.00 (50-150 cm/s) Tricuspid Valve TR P. Velocity 278.00 cm/s RAP Estimate 10.00 mmHg RVSP 40.90 mmHg Left Ventricle Left atrium is mildly enlarged, left ventricle is normal size, mild concentric left ventricular hypertrophy, visually estimated ejection fraction 55% with no regional wall motion abnormality, diastolic parameters are inconclusive. Right Ventricle Right atrium and right ventricle are normal size and contractility, pacemaker lead seen right atrium and right ventricle. Aortic Valve Aortic valve is thickened and calcified without Doppler evidence of aortic stenosis or aortic insufficiency. Mitral Valve Mitral valve has dense mitral annular calcification which extends in both anterior posterior mitral leaflet, there is no mitral stenosis, there is moderate mitral regurgitation. Tricuspid Valve Tricuspid valve leaflets are minimally thickened, there is mild tricuspid regurgitation, tricuspid regurgitation jet velocity is inadequate for calculation of the right ventricular systolic pressure. Pulmonic Valve Pulmonic valve is poorly visualized. Great Vessels Aortic root is normal size. Pericardium No significant pericardial effusion noted. Conclusion 1. Mildly enlarged left atrium, normal left ventricular size, mild concentric left ventricular hypertrophy, visually estimated ejection fraction 55% with no regional wall motion abnormality, diastolic parameters are inconclusive. 2. Thickened and calcified aortic valve without Doppler evidence of aortic stenosis or aortic insufficiency. 3. Dense mitral calcification, mitral leaflets are thickened and calcified, there is no mitral stenosis, there is moderate mitral regurgitation. 4. Mild tricuspid regurgitation. 5. No significant pericardial effusion noted. Electronically signed by : Manuel Causey MD 04/15/2021 21:55:38
== END ==
PROVIDERS: Visit Provider Nurse Practitioner Family
DX: E78.2 Mixed hyperlipidemia (principal); I11.9 Hypertensive heart disease without heart failure; I25.10 Atherosclerotic heart disease of native coronary artery without angina pectoris; R06.02 Shortness of breath; Z95.0 Presence of cardiac pacemaker; I48.20 Chronic atrial fibrillation, unspecified
CPT/HCPCS: 93306

== ENCOUNTER → 2023-07-07 12:59 | Outpatient (CLI) | payer MEDICARE, SELFPAY ==
--- NOTE | 2023-07-07 13:04 | CA_ITS ---
APPROVED REPORT EXAM: Comprehensive 2D, Doppler, and color-flow Echocardiogram [employer] Supervisor: Annemarie Adams CRT Ht: 5 ft 4 in Wt: 142lbs BSA: 1.69 BP: 154/71 mmHg Indications: CAD, Hyperlipidemia, Hypertension/HDD, pacer, AFIB 2D Dimensions LVOT 1.59 cm (M/F) 1.5-2.5 M-Mode Dimensions RVDd 2.69 cm (0.9-2.6) LA Diam 3.73 cm (1.9-4.0) LVDd 4.35 cm (3.5-5.7) Ao Diam 3.12 cm (2.0-3.7) LVDs 3.22 cm (3.5-5.7) IVSd 1.34 cm (0.6-1.1) PWd 0.66 cm (0.6-1.1) EF (Teich) 51.30% FS 26.00% EDV (Teich) 85.40 mL TAPSE 2.22 (<1.7) ESV (Teich) 41.60 mL LV Diastology E Decel Time 183.00 (160-240 msec) E/A Ratio 1.73 MED E' 7.60 (< 7 cm/sec) MED A' 4.90 cm/s E'/MED E' Ratio 20.28 (>14) LAT E' 9.40 (<10 cm/sec) LAT A' 4.10 cm/s E/LAT E' Ratio 16.39 (>14) Aortic Valve AO Peak GR. 8.00 mmHg Mitral Valve MV A Velocity 89.00 (40-130 cm/s) E/A Ratio 1.73 MV Decel. Time 183.00 (160-240 ms) Pulmonary Valve PV Peak Velocity 117.00 (50-150 cm/s) Tricuspid Valve TR P. Velocity 506.00 cm/s RAP Estimate 10.00 mmHg RVSP 112.30 mmHg Left Ventricle The left ventricle is normal size. The left ventricular systolic function is normal. The left ventricular ejection fraction is within the normal range. There is increased LV wall thickness. There is normal LV segmental wall motion. The left ventricular diastolic function is normal. LVEF is 60-65%. Right Ventricle The right ventricle is mildly dilated. The right ventricular systolic function is normal. Moderator band is noted (normal finding). Atria The left atrium is mildly dilated. The right atrium size is normal. There is no Doppler evidence of interatrial shunt. Aortic Valve The repair is mildly thickened. There is no aortic valvular stenosis. Trace aortic regurgitation. Mitral Valve There is moderate mitral annular calcification. The mitral valve leaflets are mildly thickened. No evidence of mitral valve stenosis. Moderate mitral regurgitation. Tricuspid Valve The tricuspid valve leaflets are thin and pliable. Mild tricuspid regurgitation. RVSP is 25-30 mmHg. Pulmonic Valve The pulmonary valve is normal in structure. Trace pulmonic regurgitation. Great Vessels The aortic root is normal in size. The ascending aorta is normal in size. This is IVC is normal in size and collapses >50% with inspiration. Pericardium There is no pericardial effusion. Other Information Study Quality: Adequate Conclusion Normal biventricular systolic function. Mild RV dilation. Mild LA dilation. Moderate MAC. Moderate mitral regurgitation. Electronically signed by : Elicia Manzo MD 07/10/2023 19:41:54
== END ==
LOC: RT 13:00
PROVIDERS: PCP Internal Medicine; Visit Provider Internal Medicine
DX: E78.5 Hyperlipidemia, unspecified (principal); I25.10 Atherosclerotic heart disease of native coronary artery without angina pectoris; I48.91 Unspecified atrial fibrillation; Z95.0 Presence of cardiac pacemaker
CPT/HCPCS: 93306

== ENCOUNTER 2023-12-14 12:46 | Outpatient (CLI) | payer MEDICARE, SELFPAY ==
--- NOTE | 2023-12-14 12:52 | XR_ITS ---
FINAL REPORT TECHNIQUE: Chest PA & Lateral CLINICAL HISTORY: Amiodarone use FINDINGS: 2 views of the chest were performed. The heart size is normal. A left-sided pacemaker is present. The mediastinum is within normal limits. There is no acute cardiopulmonary process. There are no pleural effusions. There is no pneumothorax. The bony thorax appears intact. IMPRESSION: No acute cardiopulmonary process. Reviewed, Interpreted and Dictated by Vic Molina MD Transcribed by Rupa Jones Authenticated and . [facility]
== END 2023-12-14 23:59 ==
LOC: RAD 12:47
PROVIDERS: PCP Nurse Practitioner Family; Visit Provider Physician Assistant
DX: Z79.899 Other long term (current) drug therapy (principal); I25.10 Atherosclerotic heart disease of native coronary artery without angina pectoris; I11.9 Hypertensive heart disease without heart failure; I48.20 Chronic atrial fibrillation, unspecified
CPT/HCPCS: 71046

== ENCOUNTER 2024-07-04 08:04 | Day surgery (SDC) | payer MEDICARE, SELFPAY ==
[2024-07-04] VITALS (11 sets, daily range): BP systolic 123–170; BP diastolic 64–80; PULSE 70–72; RESP 20; TEMP 36.1; O2SAT 93–99; BMI 23.1
--- NOTE | 2024-07-04 07:00 | IR_ITS ---
APPROVED REPORT Patient Location: Outpatient PROCEDURES Selective coronary angiogram INDICATION Known coronary artery disease, Progressive angina pectoris Informed consent was obtained prior to the procedure. COMPLICATIONS NONE Estimated Blood Loss: LESS THAN 10 ML TECHNIQUE One percent lidocaine used to anesthetize the right anterior aspect of the wrist. The right radial artery was accessed via the Seldinger technique. A 6 Tamazight sheath was placed in the right radial artery. 2.5 mg of Verapamil, 800 mcg of nitroglycerin, 1mg Lidocaine and 5000 U Heparin were given through the arterial sheath. A 4 Tamazight JL a 4 Tamazight JL 3.5 and JR4 catheter used to perform diagnostic angiogram. At the end the procedure the apparatus is moved the sheath was removed and hemostasis was achieved using TR banding patient was transferred to the postop putting in stable condition ANGIOGRAPHIC RESULTS The left main artery Normal The left anterior descending artery Is proximally widely patent with mild 10% luminal regularities. There is mid vessel concentric 30 to 40% stenosis with remaining LAD being large giving off multiple septal perforators and wrapping the apex. The circumflex artery Is large and yet still nondominant and gives rise to a large first obtuse marginal artery branch. Proximal circumflex artery is 30% stenosis while the first obtuse marginal artery has a proximal concentric 60 to 70% stenosis and a mid vessel concentric 60 to 70% stenosis followed by an additional 50% concentric stenosis the true circumflex artery small to medium in size and runs in the AV groove The right coronary artery Is a codominant vessel and has stents in the proximal through mid vessel. There is moderate concentric in-stent restenosis. There are some areas where there appears to be more severe stenosis possibly as high as 70% The [place] ventriculogram reveals Not performed The left ventricular end-diastolic pressure Not measured IMPRESSION Coronary artery disease as described above Patient is experiencing intermittent angina however is not receiving any antianginal medications. PLAN 1. For the time being and like to treat coronary artery disease medically. Patient has a creatinine of 1.6 and is already received contrast today. 2. Patient is not on antianginal medications. Will start bisoprolol 5 mg daily Ranexa 500 mg twice daily and Imdur 30 mg daily. I would like to treat patient's coronary disease medically. If she fails medical management consideration could be given to bring her back to the [facility] and undergo stenting of the large circumflex artery and possibly right coronary 3. Aggressive risk factor modification Electronically signed by : García Foss MD 07/04/2024 15:02:52
[2024-07-04 08:39] LABS: Basophils # 0.1 K/mm3 (0-0.2); Basophils % 1.3 % (0.1-2.0); Eosinophils # 0.1 K/mm3 (0.0-0.4); Eosinophils % 1.4 % (0.1-12.0); Hematocrit 39.3 % (37.0-47.0); Lymphocytes # 1.9 K/mm3 (0.7-4.5); Lymphocytes % 28.2 % (10-50); Mean Corpuscular Hemoglobin 31.3 pg (27.0-31.2); Mean Platelet Volume 8.9 fl (7.4-10.4); Monocytes # 0.5 K/mm3 (0.1-1.0); Monocytes % 6.8 % (1.7-9.3); Neutrophils # 4.2 K/mm3 (1.8-7.8); Neutrophils % 62.2 % (37.0-80.0); Platelet Count 206 K/mm3 (142-424); Red Blood Count 4.14 M/mm3 (4.20-5.40); Red Cell Distribution Width 14.4 % (11.5-17.5); White Blood Count 6.7 K/mm3 (4.8-10.8)
[2024-07-04 08:43] LABS: Chloride 105 mmol/L (98-107); Potassium 4.3 mmoL/L (3.5-5.1); Sodium 138 mmol/L (136-145)
[2024-07-04 08:46] LABS: Anion Gap 12.3 mEq/L (5-15); Blood Urea Nitrogen 27 mg/dl (7-17); Carbon Dioxide 25 mmol/L (22.0-30.0); Creatinine Clearance Estimated 32 mL/min (50-200); Estimated Glomerular Filt Rate 32 ml/min (>60); GFR (African American) 39 ML/MIN (>60)
[2024-07-04 08:47] LABS: Calcium 8.8 mg/dl (8.4-10.2); Glucose 155 mg/dl (74-100)
[2024-07-04] MEDS: diphenhydrAMINE 50MG/ML VIAL 50 MG IV (10:42)
[2024-07-04] MEDS: NITROGLYCERIN 800MCG/8ML SYR (CATH LAB) 800 MCG IA (10:42)
[2024-07-04] MEDS: HEPARIN 1,000 UNITS/ML 10ML VIAL (CATH LAB) 10000 UNIT IV (10:42)
[2024-07-04] MEDS: LIDOCAINE 1% 10ML MDV 20 ML IJ (10:42)
[2024-07-04] MEDS: HEPARIN 1,000 UNITS/500ML NS (CATH LAB) 3000 UNIT IV (10:43)
[2024-07-04] MEDS: VERAPAMIL 2.5MG/ML 2ML VIAL 2.5 MG IV (10:43)
[2024-07-04] MEDS: 0.9 % SODIUM CHLORIDE 500 ML 25 ML IV (10:44)
[2024-07-04] MEDS: FENTANYL 100MCG/2ML VIAL 50 MCG IV (10:44)
[2024-07-04] MEDS: MIDAZOLAM HCL 1MG/ML 5ML VIAL 1 MG IV (10:44)
[2024-07-04] MEDS: IOPAMIDOL-370 (76%);100ML BOTTLE 40 ML IV (12:30)
== END 2024-07-04 14:25 | disposition home or self-care (01) ==
PROVIDERS: Visit Provider Internal Medicine
DX: R42 Dizziness and giddiness (principal); I95.89 Other hypotension; R00.2 Palpitations; E78.2 Mixed hyperlipidemia; I25.118 Atherosclerotic heart disease of native coronary artery with other forms of angina pectoris; I48.20 Chronic atrial fibrillation, unspecified; Z79.899 Other long term (current) drug therapy; Z79.01 Long term (current) use of anticoagulants; Z95.0 Presence of cardiac pacemaker; E11.9 Type 2 diabetes mellitus without complications; E78.5 Hyperlipidemia, unspecified
CPT/HCPCS: 80048; 85025; 93454; 99152; 99153; C1725; C1769; J1200; J1644; J2250; J3010; Q9967

== ENCOUNTER 2024-08-25 08:48 | Observation (INO) | payer MEDICARE, SELFPAY ==
[2024-08-25] VITALS (15 sets, daily range): BP systolic 127–162; BP diastolic 59–73; PULSE 69–71; RESP 13–20; TEMP 36.6–37.1; O2SAT 96–99; BMI 24.0
--- NOTE | 2024-08-25 08:50 | ECG_ITS ---
APPROVED REPORT Exam: Resting ECG HR:69 bpm ECG Measurements Heart Rate 69 AXES MN 318 P -66 QRSd 114 QRS 6 QT 429 T 37 QTc 449 Conclusion ELECTRONIC ATRIAL PACEMAKER SEPTAL MYOCARDIAL INFARCTION , OF INDETERMINATE AGE [40+ ms Q WAVE IN V1/V2] Electronically signed by : ROSALINA MCNEIL, 08/27/2024 15:12:08
--- NOTE | 2024-08-25 09:07 | XR_ITS ---
FINAL REPORT CLINICAL HISTORY: sp vomitng COMPARISON: 12/14/2023 FINDINGS: A single view of the chest was obtained. The heart is mildly enlarged. There is a left subclavian pacer is present. The mediastinum is normal. There is mild scarring or atelectasis at the left base. There are no pleural effusions. There is no pneumothorax. There is no osseous abnormality. IMPRESSION: Mild scarring or atelectasis left base. Reviewed, Interpreted and Dictated by Vic Molina MD Transcribed by Liz Hooper Authenticated and . [facility]
--- NOTE | 2024-08-25 09:12 | [facility].EDCP ---
Discharge Plan Disposition Patient Disposition: Admitted Chief Complaint: Chest Pain Clinical Impressions Clinical Impression: Cardiomyopathy, Pre-syncope Discharge ED Provider: Jah Harrison HPI General Chief Complaint: Chest Pain Stated Complaint: Chest Pain Time Seen by Provider: 08/25/24 08:48 Mode of Arrival: Wheelchair Source of Information: Patient and Relative Limitations: No Limitations Description of Symptoms (Recalled from ER Triage Doc. by RN): per pt family she felt a pop in her chest at 0400 this morning and then began having chest pain and vomiting took one dose of nitro at 0600 and now has a headache, pt sees DR guerrier here and has a pacemaker and recent heart cath with stents History of Present Illness HPI narrative: Please note that above description of symptoms, in this electronic medical record under categorization of recalled from ER triage doctor by RN are reflective of an initial nursing assessment, however, is not reflective of my full history and physical exam that was personally taken and clarified. Consequentially, this preceding description of symptoms, which may include the patient's categorized chief complaint in the EMR, do not reflect my personal clinical impression, and the ultimate description of history of present illness and patient stated complaints should be deferred to this section of the note. Unless stated otherwise or congruent with this section of the note, additional signs, symptoms, or incongruence should be interpreted as inaccurate with my clinical impression. Related Data Home Medications ?Medication ?Instructions ?Recorded ?Confirmed ergocalciferol (vitamin D2) 1,250 50,000 unit PO WEEKLY 12/16/17 08/25/24 mcg (50,000 unit) capsule glipizide 10 mg tablet 10 mg PO BID 12/16/17 08/25/24 omega-3 fatty acids 1,000 mg 1,000 mg PO DAILY 12/16/17 08/25/24 capsule loratadine 10 mg tablet 10 mg PO DAILY 12/14/23 08/25/24 dapagliflozin propanediol 10 mg 10 mg PO DAILY 04/13/24 08/25/24 tablet (Farxiga) blood sugar diagnostic (Accu-Chek #10 ea 06/20/24 08/25/24 Guide test strips) blood-glucose meter (Accu-Chek #1 ea 06/20/24 08/25/24 Guide Me Glucose Meter) lancets (Accu-Chek Softclix #100 ea 06/20/24 08/25/24 Lancets) levothyroxine 100 mcg tablet 100 mcg PO DAILY 06/20/24 08/25/24 tirzepatide 2.5 mg/0.5 mL 2.5 mg SQ WEEKLY 06/20/24 08/25/24 subcutaneous pen injector (Jose) bisoprolol fumarate 5 mg tablet 5 mg PO DAILY 07/25/24 08/25/24 apixaban 2.5 mg tablet (Eliquis) 2.5 mg PO BID 08/25/24 08/25/24 aspirin 81 mg tablet,delayed 81 mg PO DAILY 08/25/24 08/25/24 release meclizine 25 mg tablet 25 mg PO TIDP PRN Dizziness 08/25/24 08/25/24 ranolazine 1,000 mg 1,000 mg PO BID 08/25/24 08/25/24 tablet,extended release,12 hr Previous Rx's ?Medication ?Instructions ?Recorded amiodarone 200 mg tablet 200 mg PO DAILY #90 tabs 03/14/24 rosuvastatin 20 mg tablet (Crestor) 20 mg PO DAILY #90 tabs 06/22/24 isosorbide mononitrate 30 mg 30 mg PO DAILY #30 tabs 07/04/24 tablet,extended release 24 hr Allergies Allergy/AdvReac Type Severity Reaction Status Date / Time lisinopril AdvReac Cough Verified 07/25/24 10:08 rivaroxaban (From Xarelto) AdvReac DIARHEA Verified 07/25/24 10:08 [facility] Disclaimer: The information contained in this section may have been updated after the patient was seen, as this information can be updated by other users. Medical History (Updated 08/25/24 @ 11:41 by Jah Harrison MD) Chest pain Dizziness Hypotension Fatigue Mitral regurgitation Palpitations SOB (shortness of breath) Family History Other No significant family history Social History Smoking Status: Never smoker alcohol intake: never substance use type: denies use current occupational status: other Travel in the last 8 weeks: Inside the [place] household members: spouse housing: house Have you lived/traveled outside [place] in past 30 days?: No Contact w/someone who lives/traveled outside [place] past 30 days?: No Exposure to someone with infectious disease in past 14 days?: No Do you have a fever (greater than 100.4 F or 38 C)?: No Have you tested positive for COVID-19: No Exposed to someone with COVID-19 in past 14 days?: No Do you have a sore throat?: No Do you have a cough?: No Do you have any weakness?: No Do you have any diarrhea?: No Are you experiencing any unusual bleeding?: No Do you have any muscle aches/pain?: No Do you have any abdominal pain?: No Are you experiencing loss of taste or smell?: No Other Medical History Have you received the Flu Vaccine for this season: No Have you received the Pneumonia Vaccine: No ROS Obtained: Yes All systems reviewed & no additional complaints except as documented Physical Exam General General appearance: alert and in no apparent distress Neck Neck exam: Present trachea midline Chest Chest inspection: Present normal inspection and symmetric chest wall rise Respiratory Respiratory exam: Present normal lung sounds bilaterally and other (Speaking in full sentences); Absent respiratory distress, wheezes, stridor, accessory muscle use or prolonged expiratory phase Cardiovascular Cardiovascular exam: Present regular rate, normal rhythm, normal heart sounds and other (Pulses equal and symmetric in upper and lower extremities. Nonpitting lower extremity edema.) Extremities Exam Extremities exam: Present edema (Minimal nonpitting) Neurological Exam Neurological exam: Present alert, oriented X3 and CN II-XII intact Skin Skin exam: Present warm and dry; Absent cyanosis, diaphoresis or pallor HEART Score HEART Score HEART Score assessment performed?: Yes History (anamnesis): Slightly suspicious ECG: Non-specific disturbance Age: >65 years Risk factors: 3 or more risk factors Troponin: </= normal limit HEART Score: 5 Critical Care Critical Care Time Critical Care Time: Yes (cardiac) Attestation: On 08/25/24, the high probability of a clinically significant, sudden or life threatening deterioration of the following system(s) required my full and direct attention, intervention and personal management. The time I documented below is in addition to time spent performing reported procedures but includes the following listed in this critical care notation. Total Time Total Critical Care Time: 45 Medical Decision Making Medical Records Medical records reviewed: Yes I reviewed the patient's medical records. Kiran Inquiry Pt receiving controlled substance: No Kiran was queried for this patient: No Vital Signs Vital Signs: 08/25/24 08:48 08/25/24 08:56 08/25/24 08:58 Temperature 98.2 F Temperature Source Oral Pulse Rate 70 70 Pulse Rate [Left Radial] 70 Respiratory Rate 13 13 Blood Pressure 153/73 H Blood Pressure [Right Arm] 153/73 H Blood Pressure Mean Blood Pressure Mean [Right Arm] 99 02 Sat by Pulse Oximetry 97 97 Oxygen Delivery Method Room Air Room Air 08/25/24 09:00 08/25/24 09:30 08/25/24 10:00 Temperature Temperature Source Pulse Rate 69 69 69 Pulse Rate [Left Radial] Respiratory Rate 13 15 16 Blood Pressure 153/69 H 143/67 H 143/67 H Blood Pressure [Right Arm] Blood Pressure Mean Blood Pressure Mean [Right Arm] 02 Sat by Pulse Oximetry 97 97 96 Oxygen Delivery Method Room Air Room Air Room Air 08/25/24 10:01 08/25/24 10:30 08/25/24 11:00 Temperature Temperature Source Pulse Rate 70 69 Pulse Rate [Left Radial] Respiratory Rate 14 15 14 Blood Pressure 142/67 H 162/69 H 152/72 H Blood Pressure [Right Arm] Blood Pressure Mean 95 100 Blood Pressure Mean [Right Arm] 02 Sat by Pulse Oximetry 96 99 Oxygen Delivery Method Room Air 08/25/24 11:30 Temperature 98.2 F Temperature Source Pulse Rate 70 Pulse Rate [Left Radial] Respiratory Rate 20 Blood Pressure 152/72 H Blood Pressure [Right Arm] Blood Pressure Mean Blood Pressure Mean [Right Arm] 02 Sat by Pulse Oximetry Oxygen Delivery Method Room Air Lab Data Labs: Lab Results 08/25/24 08:54: WBC 7.8, RBC 3.62 L, Hgb 11.7 L, Hct 35.2 L, MCV 97.2, MCH 32.3 H, MCHC 33.2, RDW 13.8, Plt Count 262, MPV 10.7 H, Neut % (Auto) 83.0 H, Lymph % (Auto) 11.0, [place] % (Auto) 3.7, Eos % (Auto) 0.4, Baso % (Auto) 0.6, Neut # (Auto) 6.5, Lymph # (Auto) 0.9, [place] # (Auto) 0.3, Eos # (Auto) 0.0, Baso # (Auto) 0.1, PT 11.1, INR 0.99, APTT 33.6 H, Sodium 133 L, Potassium 5.1, Chloride 106, Carbon Dioxide 25, Anion Gap 7.1, BUN 29 H, Creatinine 1.30 H, Estimated Creat Clear 40, Estimated GFR 40 L, Est GFR ( Amer) 49 L, Glucose 210 H, Calcium 8.8, Total Bilirubin 0.5, AST 36, ALT 28, Alkaline Phosphatase 77, Troponin I < 0.01, NT-Pro-B Natriuret Pep 642 H, Total Protein 6.2 L, Albumin 3.6, Globulin 2.6, Albumin/Globulin Ratio 1.4, Triglycerides 95, Cholesterol 134 L, LDL Cholesterol Direct 36.34 L, VLDL Cholesterol 19, HDL Cholesterol 76 H, Cholesterol/HDL Ratio 1.8, Lipase 64 08/25/24 08:54 08/25/24 08:54 Response Orders (Tests/Meds): ED MEDICATIONS Discontinued Medications Generic Name Dose Route Start Last Admin Trade Name Freq PRN Reason Stop Dose Admin Aspirin 324 mg 08/25/24 09:07 08/25/24 09:30 Aspirin 81mg Chewable Tablet PO 08/25/24 09:08 324 mg ONCE ONE Administration ORDERS Category Date Time Status Cardiology Consult [Consult to Cardiology] [CONS] Cons 08/25/24 11:17 Active Routine XR chest portable Stat Exams 08/25/24 09:07 Completed Complete Blood Count Auto Diff AMLAB Lab 08/26/24 06:00 Ordered Complete Blood Count Auto Diff Stat Lab 08/25/24 08:54 Completed Comprehensive Metabolic Panel AMLAB Lab 08/26/24 06:00 Ordered Comprehensive Metabolic Panel Stat Lab 08/25/24 08:54 Completed Lipase Stat Lab 08/25/24 08:54 Completed Lipid Panel Stat Lab 08/25/24 08:54 Completed Magnesium AMLAB Lab 08/26/24 06:00 Ordered NT Pro Brain Natriuretic Pep. Stat Lab 08/25/24 08:54 Completed PT INR [Prothrombin Time INR] Stat Lab 08/25/24 08:54 Completed PTT [Activated Partial Thrombo Time] Stat Lab 08/25/24 08:54 Completed Troponin I Q3H Lab 08/25/24 12:15 Ordered Troponin I Q3H Lab 08/25/24 15:15 Ordered Troponin I Stat Lab 08/25/24 08:54 Completed Urinalysis and Microscopic Stat Lab 08/25/24 Results Urine Culture Stat Micro 08/25/24 Received CA echo doppler complete Stat Y 08/25/24 11:15 Completed MDM Narrative Medical Decision Narrative: 69-year-old female history of hypertension, hyperlipidemia, CAD, CKD, type 2 diabetes, A-fib on Eliquis, AV pacer in place presenting with multiple complaints. Patient states that she has been dizzy on and off for a month. States that she seen a neurologist, teletype technician, nothing seems to be making better. Intermittently having falls due to intermittent dizziness. It seems, on further asking, that patient is having positional changes and orthostatic lightheadedness. No syncope. Patient states that today, 08/25, she vomited twice around 5:30 AM. Nonbloody, nonbilious emesis. States that also feeling lightheaded and dizzy, this is not different than usual. Also having chest pains that radiate across her chest from right to left, similar to chest pain she has had in the past, this also has been going on for few days, but seems worse today. No shortness of breath, neurologic deficits otherwise, or any other concerns. Still feeling nauseated. History was obtained via conversation with patient and family. On arrival, patient hemodynamically stable, alert, oriented x4, appropriate, GCS 15, moving all extremities spontaneously, pupils equal and reactive to light. Full physical exam performed and significant for well-appearing female no acute distress. Speaking full sentences. Cardiac exam with no murmurs gallops or rubs. Lower extremities with nonpitting edema. Pulses are equal and symmetric. Patient is neurologically intact. Lungs are clear bilaterally. Unremarkable exam overall.. Differential includes gastritis, enteritis, pancreatitis, PUD, ACS, SC, pneumonia, UTI, among others. Patient was given 324 aspirin for symptomatic management and correction of underlying abnormalities. Patient placed on continuous cardiac monitoring and continuous pulse ox with initial blood pressure 153/73, heart rate 70, saturation 97% on room air. Independent interpretation of EKG shows a paced rhythm [address] or T wave changes concerning for acute ischemia. Q waves in anterior leads without reciprocal elevations. OK 318, QRS 114, QTc 449. Workup independently interpreted and significant for nonactionable CBC or chemistry. Patient's creatinine stable at 1.3. BNP mildly elevated 642, no baseline with which to compare. Troponin negative. On independent interpretation of imaging, no acute cardiopulmonary space disease, leads appear in appropriate position and without abnormality. See radiology read for full review of final results. Heart score 5. On reevaluation, patient states that she is having the same dizzy spells that she was having at home. EKG obtained, there were changes on the monitor. Patient appears to be going in and out of atrial versus ventricularly paced rhythm. EKG with atrial and ventricularly paced rhythms, ventricular beats are Sgarbossa negative. No acute ischemic change. Still prolonged OK interval. Neurology consulted and case was discussed at length, recommended admission, echocardiogram, further workup. Hospitalist was contacted and case was discussed at length, graciously excepted patient for admission for further workup. 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 Because patient high risk for clinical decompensation, deemed appropriate for inpatient admission. Results were relayed to patient who voiced understanding and patient was agreeable to inpatient admission and management. Patient was admitted to the hospital for further definitive management. Poultry Veterinarian disclaimer Much of this encounter note is an electronic sql report analyst spoken language to printed text. Electronic sql report analyst of the spoken language may permit errors. Although I have reviewed the note, some errors may still exist.
--- NOTE | 2024-08-25 09:25 | PC.NURSE ---
XR AT BEDSIDE
[2024-08-25 09:28] LABS: INR 0.99 (0.9-1.1); Prothrombin Time 11.1 seconds (10.1-12.5)
--- NOTE | 2024-08-25 09:29 | PC.NURSE ---
MEDICATED PT PER EMAR, NO NEEDS AT THIS TIME. CALL LIGHT WITHIN REACH
[2024-08-25] MEDS: ASPIRIN 81MG CHEWABLE TABLET 324 MG PO (09:30)
[2024-08-25 09:31] LABS: Hematocrit 35.2 % (37.0-47.0); Hemoglobin 11.7 g/dL (12.2-16.2); Mean Corpuscular HGB Conc 33.2 g/dL (31.8-35.4); Mean Corpuscular Hemoglobin 32.3 pg (27.0-31.2); Mean Corpuscular Volume 97.2 fl (81-99); Mean Platelet Volume 10.7 fl (7.4-10.4); Platelet Count 262 K/mm3 (142-424); Red Blood Count 3.62 M/mm3 (4.20-5.40); Red Cell Distribution Width 13.8 % (11.5-17.5); White Blood Count 7.8 K/mm3 (4.8-10.8)
[2024-08-25 09:32] LABS: Basophils # 0.1 K/mm3 (0-0.2); Basophils % 0.6 % (0.1-2.0); Eosinophils % 0.4 % (0.1-12.0); Lymphocytes # 0.9 K/mm3 (0.7-4.5); Monocytes # 0.3 K/mm3 (0.1-1.0); Monocytes % 3.7 % (1.7-9.3); Neutrophils # 6.5 K/mm3 (1.8-7.8)
[2024-08-25 09:35] LABS: Activated Partial Thrombo Time 33.6 seconds (22.8-30.6)
[2024-08-25 09:52] LABS: Albumin Level 3.6 g/dl (3.5-5.0); Chloride 106 mmol/L (98-107); Potassium 5.1 mmoL/L (3.5-5.1); Sodium 133 mmol/L (136-145)
[2024-08-25 09:54] LABS: Chol/HDL Ratio 1.8 (1-3.5); Cholesterol 134 mg/dl (140-200); HDL Cholesterol 76 mg/dl (40-60); Triglycerides 95 mg/dl (30-150); VLDL Cholesterol 19 mg/dL (0-40)
[2024-08-25 09:55] LABS: Alanine Aminotransferase 28 U/L (12-78); Albumin/Globulin Ratio 1.4 (1.1-1.8); Alkaline Phosphatase 77 U/L (38-126); Anion Gap 7.1 mEq/L (5-15); Aspartate Amino Transferase 36 U/L (14-36); Bilirubin,Total 0.5 mg/dl (0.2-1.3); Blood Urea Nitrogen 29 mg/dl (7-17); Carbon Dioxide 25 mmol/L (22.0-30.0); Creatinine Clearance Estimated 40 mL/min (50-200); Estimated Glomerular Filt Rate 40 ml/min (>60); GFR (African American) 49 ML/MIN (>60); Globulin 2.6 g/dL (1.3-3.2); Lipase 64 U/L (23-300); Total Protein,Serum 6.2 g/dl (6.3-8.2)
[2024-08-25 09:56] LABS: Calcium 8.8 mg/dl (8.4-10.2); Glucose 210 mg/dl (74-100)
[2024-08-25 10:05] LABS: Direct LDL Cholesterol 36.34 mg/dL (100-129); NT Pro Brain Natriuretic Pep. 642 pg/mL (0-125)
[2024-08-25 10:26] LABS: Troponin I < 0.01 ng/ml (0.00-0.034)
[2024-08-25 10:36] LABS: Microscopic, Urine URINE MICROSCOPIC (MICROSCOPIC)
--- NOTE | 2024-08-25 10:41 | PC.NURSE ---
BUILDING SERVICE WORKER RHYTHM CHANGE, DR MCNEIL AT BEDSIDE. REPEAT EKG BEING OBTAINED AT THIS TIME. RN X 3 AT BEDSIDE
--- NOTE | 2024-08-25 10:42 | ECG_ITS ---
APPROVED REPORT Exam: Resting ECG HR:71 bpm ECG Measurements Heart Rate 71 AXES HI 364 P 145 QRSd 114 QRS 2 QT 462 T 37 QTc 484 Conclusion ELECTRONIC ATRIAL PACEMAKER ELECTRONIC VENTRICULAR PACEMAKER -- CONTOUR ANALYSIS BASED ON INTRINSIC RHYTHM SEPTAL MYOCARDIAL INFARCTION , OF INDETERMINATE AGE [40+ ms Q WAVE IN V1/V2] Electronically signed by : ROSALINA MCNEIL, 08/27/2024 15:12:22
--- NOTE | 2024-08-25 11:04 | PC.NURSE ---
Pt. laying in bed at this time. no needs. call light in reach
--- NOTE | 2024-08-25 11:12 | PC.NURSE ---
DR MCNEIL SPEAKING WITH DR IRVIN
--- NOTE | 2024-08-25 11:13 | PC.NURSE ---
spoke with christal beauchamp device rep after interogating device
[2024-08-25 11:15] LABS: Appearance,Urine CLEAR (Clear); Bilirubin,Urine Negative (Negative); Blood, Urine 3+ (Negative); Color,Urine YELLOW (Yellow); Glucose,Urine (UA) 3+ (Negative); Ketones,Urine Negative (Negative); Leukocyte Esterase,Urine 1+ (Negative); Nitrate,Urine Negative (Negative); Protein,Urine Negative (Negative); Specific Gravity, Urine 1.015 (1.005-1.030); Urobilinogen,Urine 0.2 EU/dl (0.2)
--- NOTE | 2024-08-25 11:15 | CA_ITS ---
APPROVED REPORT EXAM: Comprehensive 2D, Doppler, and color-flow Echocardiogram [place] Hand: Nikki Pineda RVT Ht: 5 ft 4 in Wt: 140lbs BSA: 1.68 BP: 155/73 mmHg Indications: CP,PACER,CAD,MOD MR,MAC,PALPS,FATIGUE,SOA 2D Dimensions IVSd 1.24 cm F: 0.6-1.0 LVEF (Visual) 55.80 % PWd 0.90 cm F: 0.6 - 1.0 LVDd 4.05 cm F: 3.9 - 5.3 LVDs 2.89 cm F: 2.2 - 3.5 M-Mode Dimensions LA Diam 3.73 cm (1.9-4.0) TAPSE 1.98 (<1.7) LV Diastology E Decel Time 233 (160-240 msec) E/A Ratio 1.3 Aortic Valve LILIBETH Index 1.59 cm2/m2 AoV Peak Aron. 123.0 (50-130 cm/s) AO Peak GR. 6.10 mmHg AO Mean GR. 3.50 (<5 mmHg) AO VTI 29.5 (18-25 cm) LILIBETH (VTI) 2.74 (2.5-4.5 cm2) Mitral Valve MV E Max Aron. 145.0 (40-130 cm/s) MV A Velocity 108.0 (40-130 cm/s) E/A Ratio 1.35 MV Mean Gr. 5.10 (<2mmHg) MV PHT 68.0 ms Pulmonary Valve PV Peak Velocity 95.0 (50-150 cm/s) Tricuspid Valve TR P. Velocity 278.00 cm/s RAP Estimate 10.00 mmHg RVSP 40.90 mmHg Left Ventricle The left ventricle is normal size. The left ventricular systolic function is normal. The left ventricular ejection fraction is within the normal range. There is increased LV wall thickness. There is normal LV segmental wall motion. Diastolic function is indeterminate. LVEF is 55%. Right Ventricle Right ventricle is mildly dilated. The right ventricular systolic function is normal. Atria Left atrium is moderately dilated. The right atrium size is normal. There is no Doppler evidence of interatrial shunt. Aortic Valve The aortic valve is mildly thickened. There is no aortic valvular stenosis. Trace aortic regurgitation. Mitral Valve Moderate mitral annular calcification (MAC). The MV leaflets are mildly thickened. Borderline mitral stenosis is present. Mean MV gradient 5 mmHg (HR 69 bpm). Moderate mitral regurgitation. Tricuspid Valve Tricuspid valve is grossly normal in structure and function. Mild tricuspid regurgitation. RVSP is 20-25 mmHg. Pulmonic Valve The pulmonary valve is normal in structure. Trace pulmonic regurgitation. Great Vessels The aortic root is normal in size. IVC is normal in size and collapses >50% with inspiration. Pericardium There is no pericardial effusion. Other Information Study Quality: Fair Conclusion Normal biventricular systolic function. Mild RV dilation. LA dilation. Moderate MR. Moderate MAC with thickened MV lealfets and borderline MS (mean MV gradient 5 mmHg at HR 69 bpm). Mild TR. Electronically signed by : Elicia Manzo MD 08/26/2024 11:46:31
--- NOTE | 2024-08-25 11:18 | PC.NURSE ---
spoke with housekeeping and laundry team leader for bed request
--- NOTE | 2024-08-25 11:19 | EXP.HP ---
History of Present Illness *Admission Date: 08/25/24 *Reason for visit:: dizzy, palpitations *History of present illness: Ms. Rodriguez is a 69-year-old female with history of hypertension, hyperlipidemia, CAD, CKD 3, diabetes, A-fib on Eliquis, AV pacemaker in place. She presents with complaint of dizziness worsening over the past month. 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 Intermittently having falls due to her dizziness. Has had some intermittent nausea and shortness of breath. Denies tamara syncope. No chest pain. No fever. Did have an episode of vomiting this morning that was nonbloody and nonbilious. On arrival to the ER, found to have a normal white count. Mild anemia. Mild hypertension. Electrolytes relatively unremarkable with stable baseline kidney function. Of note found to have arrhythmia on EKG for which cardiology was consulted. Cardiology recommended admission with further workup for possible cardiomyopathy secondary to her pacemaker. After arrival to the floor, CTA of head and neck were obtained due to dizziness and falls. No significant stenosis but was found to have a tiny hypodense lacunar infarct within the right caudate nucleus. Unsure the acuity. Recommend MRI for further evaluation. Otherwise no large vessel occlusions on CTA of the head. Stable on room air. Alert and oriented x 4. Echocardiogram obtained, pending formal read Patient recently underwent left heart cath the beginning of July. Found to have some mild coronary artery disease, recommendations at that time or medical management with addition of Ranexa and Imdur. Findings as follows: 1. For the time being and like to treat coronary artery disease medically. Patient has a creatinine of 1.6 and has already received contrast today. 2. Patient is not on antianginal medications. Will start bisoprolol 5 mg daily Ranexa 500 mg twice daily and Imdur 30 mg daily. I would like to treat patient's coronary disease medically. If she fails medical management consideration could be given to bring her back to the [facility] [employer] [facility] and undergo stenting of the large circumflex artery and possibly right coronary dizziness worse after initiating antianginals [facility] Disclaimer: The information contained in this section may have been updated after the patient was seen, as this information can be updated by other users. Medical History Chest pain Dizziness Hypotension Fatigue Mitral regurgitation Palpitations SOB (shortness of breath) Family History Other No significant family history Social History Smoking Status: Never smoker alcohol intake: never substance use type: denies use current occupational status: other Travel in the last 8 weeks: Inside the [place] household members: spouse housing: house Have you lived/traveled outside US in past 30 days?: No Contact w/someone who lives/traveled outside US past 30 days?: No Exposure to someone with infectious disease in past 14 days?: No Do you have a fever (greater than 100.4 F or 38 C)?: No Have you tested positive for COVID-19: No Exposed to someone with COVID-19 in past 14 days?: No Do you have a sore throat?: No Do you have a cough?: No Do you have any weakness?: No Do you have any diarrhea?: No Are you experiencing any unusual bleeding?: No Do you have any muscle aches/pain?: No Do you have any abdominal pain?: No Are you experiencing loss of taste or smell?: No Other Medical History Have you received the Flu Vaccine for this season: No Have you received the Pneumonia Vaccine: No Review of Systems Review of Systems Review of systems (narrative): 14 point review of systems performed, pertinent positives and negatives as per HPI Meds Home Medications and Allergies Home Medications ?Medication ?Instructions ?Recorded ?Confirmed ?Type ergocalciferol (vitamin D2) 1,250 50,000 unit PO WEEKLY 12/16/17 08/25/24 History mcg (50,000 unit) capsule glipizide 10 mg tablet 10 mg PO BID 12/16/17 08/25/24 History omega-3 fatty acids 1,000 mg 1,000 mg PO DAILY 12/16/17 08/25/24 History capsule loratadine 10 mg tablet 10 mg PO DAILY 12/14/23 08/25/24 History amiodarone 200 mg tablet 200 mg PO DAILY #90 tabs 03/14/24 08/25/24 Rx dapagliflozin propanediol 10 mg 10 mg PO DAILY 04/13/24 08/25/24 History tablet (Farxiga) blood sugar diagnostic (Accu-Chek #10 ea 06/20/24 08/25/24 History Guide test strips) blood-glucose meter (Accu-Chek #1 ea 06/20/24 08/25/24 History Guide Me Glucose Meter) lancets (Accu-Chek Softclix #100 ea 06/20/24 08/25/24 History Lancets) levothyroxine 100 mcg tablet 100 mcg PO DAILY 06/20/24 08/25/24 History tirzepatide 2.5 mg/0.5 mL 2.5 mg SQ WEEKLY 06/20/24 08/25/24 History subcutaneous pen injector (Jose) rosuvastatin 20 mg tablet (Crestor) 20 mg PO DAILY #90 tabs 06/22/24 08/25/24 Rx isosorbide mononitrate 30 mg 30 mg PO DAILY #30 tabs 07/04/24 08/25/24 Rx tablet,extended release 24 hr bisoprolol fumarate 5 mg tablet 5 mg PO DAILY 07/25/24 08/25/24 History apixaban 2.5 mg tablet (Eliquis) 2.5 mg PO BID 08/25/24 08/25/24 History aspirin 81 mg tablet,delayed 81 mg PO DAILY 08/25/24 08/25/24 History release meclizine 25 mg tablet 25 mg PO TIDP PRN Dizziness 08/25/24 08/25/24 History ranolazine 1,000 mg 1,000 mg PO BID 08/25/24 08/25/24 History tablet,extended release,12 hr New Prescriptions to Start Prescriptions: Allergies Allergy/AdvReac Type Severity Reaction Status Date / Time lisinopril AdvReac Cough Verified 07/25/24 10:08 rivaroxaban (From Xarelto) AdvReac DIARHEA Verified 07/25/24 10:08 Exam Data for Last 24 hours Vital signs and Labs for Last 24 Hours: Temp Pulse Resp BP Pulse Ox O2 Del Method 98.2 F 69 15 162/69 H 99 Room Air 08/25/24 08:48 08/25/24 10:30 08/25/24 10:30 08/25/24 10:30 08/25/24 10:30 08/25/24 10:00 Laboratory Results - last 24 hr 08/25/24 08:54: WBC 7.8, RBC 3.62 L, Hgb 11.7 L, Hct 35.2 L, MCV 97.2, MCH 32.3 H, MCHC 33.2, RDW 13.8, Plt Count 262, MPV 10.7 H, Neut % (Auto) 83.0 H, Lymph % (Auto) 11.0, [place] % (Auto) 3.7, Eos % (Auto) 0.4, Baso % (Auto) 0.6, Neut # (Auto) 6.5, Lymph # (Auto) 0.9, [place] # (Auto) 0.3, Eos # (Auto) 0.0, Baso # (Auto) 0.1, PT 11.1, INR 0.99, APTT 33.6 H, Sodium 133 L, Potassium 5.1, Chloride 106, Carbon Dioxide 25, Anion Gap 7.1, BUN 29 H, Creatinine 1.30 H, Estimated Creat Clear 40, Estimated GFR 40 L, Est GFR ( Amer) 49 L, Glucose 210 H, Calcium 8.8, Total Bilirubin 0.5, AST 36, ALT 28, Alkaline Phosphatase 77, Troponin I < 0.01, NT-Pro-B Natriuret Pep 642 H, Total Protein 6.2 L, Albumin 3.6, Globulin 2.6, Albumin/Globulin Ratio 1.4, Triglycerides 95, Cholesterol 134 L, LDL Cholesterol Direct 36.34 L, VLDL Cholesterol 19, HDL Cholesterol 76 H, Cholesterol/HDL Ratio 1.8, Lipase 64 I & O for Last 24 hours: Intake & Output 08/22/24 08/23/24 08/24/24 08/25/24 23:59 23:59 23:59 23:59 Weight 63.503 kg Constitutional Constitutional: no acute distress, average body habitus, chronically ill appearing and cooperative *Routine HEENT Exam Head: Present normocephalic Eye: Present EOMI and PERRL ENT: Present mucous membranes moist *Routine Neck Exam Neck: Present supple; Absent lymphadenopathy *Routine Respiratory Exam Respiratory: Present CTA bilaterally; Absent rhonchi, stridor, wheezes or crackles *Routine Cardiovascular Exam Cardiovascular: Present RRR *Routine Abdominal Exam Abdominal: Present soft and normoactive bowel sounds; Absent tenderness *Routine Rectal Exam Rectal:: deferred *Routine Genitalia Exam Genitalia:: deferred *Routine Extremities Exam Extremities: Absent cyanosis, clubbing or edema *Routine Skin Exam Skin: Present warm; Absent rash *Routine Neurological Exam Neurological: Present alert, oriented X3, CN II-XII intact and moving all extremities; Absent altered mental status Assessment and Plan *Assessment and plan (1) Dizziness: Status: Acute Category: Medical Code(s): R42 - Dizziness and giddiness (2) Cardiomyopathy: Status: Acute Category: Medical Code(s): I42.9 - Cardiomyopathy, unspecified (3) CVA (cerebral vascular accident): Status: Acute Category: Medical Code(s): I63.9 - Cerebral infarction, unspecified (4) Atrial fibrillation: Status: Chronic Qualifiers: Atrial fibrillation type: chronic Qualified Code(s): I48.2 - Chronic atrial fibrillation Category: Medical Code(s): I48.91 - Unspecified atrial fibrillation (5) Recurrent falls: Status: Acute Category: Medical Code(s): R29.6 - Repeated falls (6) Coronary artery disease: Status: Acute Qualifiers: Associated angina: without angina Coronary Disease-Associated Artery/Lesion type: [place] artery [place] vs. transplanted heart: [place] heart Qualified Code(s): I25.10 - Atherosclerotic heart disease of [place] coronary artery without angina pectoris Category: Medical Code(s): I25.10 - Atherosclerotic heart disease of [place] coronary artery without angina pectoris (7) Pacemaker: Status: Chronic Category: Medical Code(s): Z95.0 - Presence of cardiac pacemaker (8) Diabetes mellitus: Status: Chronic Qualifiers: Diabetes mellitus complication detail: with other circulatory complications Diabetes mellitus complication status: with circulatory complication Diabetes mellitus custodial insulin use: with custodial use Diabetes mellitus type: type 2 Qualified Code(s): E11.59 - Type 2 diabetes mellitus with other circulatory complications; Z79.4 - care home (current) use of insulin Category: Medical Code(s): E11.9 - Type 2 diabetes mellitus without complications (9) CKD (chronic kidney disease) stage 3, GFR 30-59 ml/min: Status: Chronic Qualifiers: Chronic kidney disease stage 3 subtype: unspecified whether 3a or 3b Qualified Code(s): N18.30 - Chronic kidney disease, stage 3 unspecified Category: Medical Code(s): N18.30 - Chronic kidney disease, stage 3 unspecified Plan 69 year-old female with recurrent dizziness and falls. Workup in the ER with arrhythmia on EKG. CTA of the head shows small lacunar infarct of undetermined age. Discussed case with ER physician, request admission for management of arrhythmia and cardiology eval. I agreed to admit for further treatment and management. Cardiology evaluating and assisting with care. Problems addressed as follows: Recurrent dizziness CVA of undetermined acuity -Would benefit from MRI, will discuss with cardiology in the morning doing MRI with monitoring as she has a pacemaker in situ -Per my review of CTA, small lacunar infarct. May account for some of her symptoms. Will medically manage at this time per pretension. Continue aspirin 81 mg daily, Eliquis 2.5 milligrams twice daily, Crestor 20 milligrams daily. Will discuss benefit of Plavix tomorrow with cardiology to decrease risk for further strokes. -Monitor on telemetry overnight -Orthostatic vital signs with no significant drop -Will hold Ranexa and Imdur at this time -CTA of the neck with no significant large vessel stenosis -TSH pending Diabetes: A1c pending. Sliding scale with fingers chest. Continue dapagliflozin 10 mg daily. Hold glipizide hide. CAD . Small A-fib - s/p REBECCA 2014, repeat cath performed 07/24. Recommended medical management. Continue Eliquis, statin as above. - Resume bisoprolol 5 mg nightly. -Cardiology interrogated pacemaker, shows Atrial Pacing 97% at 70bpm, RVP only 2.9% - no events CKD 3 - Cr 1.3 today, at baseline, elevated during [facility] last month at 1.6 - caution with contrast and nephrotoxins - repeat CMP, CBC, Mg ordered for the morning N/V - resolved per pt. abdomen is soft and nontender, tolerating p.o. intake on exam Full code Eliquis twice daily Cardiac diet
--- NOTE | 2024-08-25 11:28 | PC.NURSE ---
called report to anand hayden and answered all questions
[2024-08-25 11:38] LABS: WBC,Urine 20-50 #/hpf (0-3)
[2024-08-25 11:39] LABS: Bacteria,Urine Trace /lpf; RBC,Urine Occasional #/hpf (0-3)
--- NOTE | 2024-08-25 11:41 | HMH.PHAINT1 ---
Pharmacy Intervention Comments: MEDICATION RECONCILIATION COMPLETED ON PATIENT USING EXTERNAL FILL HISTORY FROM PHARMACY AND LIST FROM CARDIOLOGY OFFICE. -JEFFREY OROZCO, SWETHAD
[2024-08-25 12:35] LABS: Troponin I < 0.01 ng/ml (0.00-0.034)
--- NOTE | 2024-08-25 13:36 | EXP.CARD.CON ---
History of Present Illness History of Present Illness Consult date: 08/25/24 Requesting physician: Flako Villa Chief complaint: dizziness and NV History of present illness: 69-year-old white female established patient of our office with a history of CAD status post stenting in 2016. She also had a heart cath approximately 1 month ago which showed moderate disease left to medical therapy. Patient also has history of paroxysmal atrial fibrillation status post permanent pacemaker implant February of this year as well as moderate mitral annular calcification. Patient presents to the emergency room early this morning after sudden onset epigastric discomfort followed by 2 episodes of emesis without blood or bile noted. She also reports dizziness which she has been feeling over the past 3 months with increasing frequency and severity. She describes weakness upon standing associated with numerous falls. States she will also feel occasional dizziness at rest or with rapid head movements. She tried meclizine which was not helpful. EKG in the emergency department indicated alternating atrial and ventricular paced rhythms. Pacemaker interrogation reveals 98% atrial pacing with 2.9% RV pacing, no other significant findings. She is admitted for dizziness with falls, acute GI illness and further workup. Labs appear near baseline. No orthostatics performed at this time. [facility] Disclaimer: The information contained in this section may have been updated after the patient was seen, as this information can be updated by other users. Medical History Chest pain Dizziness Hypotension Fatigue Mitral regurgitation Palpitations SOB (shortness of breath) Family History Other No significant family history Social History Smoking Status: Never smoker alcohol intake: never substance use type: denies use current occupational status: other Travel in the last 8 weeks: [place] the [place] household members: spouse housing: house Have you lived/traveled outside US in past 30 days?: No Contact w/someone who lives/traveled outside US past 30 days?: No Exposure to someone with infectious disease in past 14 days?: No Do you have a fever (greater than 100.4 F or 38 C)?: No Have you tested positive for COVID-19: No Exposed to someone with COVID-19 in past 14 days?: No Do you have a sore throat?: No Do you have a cough?: No Do you have any weakness?: No Do you have any diarrhea?: No Are you experiencing any unusual bleeding?: No Do you have any muscle aches/pain?: No Do you have any abdominal pain?: No Are you experiencing loss of taste or smell?: No Review of Systems Constitutional Constitutional: Reports fatigue and Reports weakness Eyes Eyes: Denies loss of vision ENT Ears, Nose, Mouth, and Throat: Denies hearing loss and Reports vertigo *Cardiovascular Cardiovascular: Denies chest pain, Denies dyspnea and Denies syncope *Respiratory Respiratory: Denies cough and Denies dyspnea *Gastrointestinal Gastrointestinal: Denies change in stool character, Reports nausea and Reports vomiting *Musculoskeletal Musculoskeletal: Denies muscle weakness Integumentary/Breasts Skin/Breast: Denies changing lesions *Neurologic Neurologic: Denies loss of vision, Denies syncope, Reports vertigo and Reports weakness Endocrine Endocrine: Reports fatigue Exam Data for Last 24 hours Vital signs and Labs for Last 24 Hours: Temp Pulse Resp BP Pulse Ox O2 Del Method 98.2 F 69 14 160/71 H 99 Room Air 08/25/24 11:30 08/25/24 11:30 08/25/24 11:30 08/25/24 11:30 08/25/24 11:30 08/25/24 11:30 Laboratory Results - last 24 hr 08/25/24 08:54: WBC 7.8, RBC 3.62 L, Hgb 11.7 L, Hct 35.2 L, MCV 97.2, MCH 32.3 H, MCHC 33.2, RDW 13.8, Plt Count 262, MPV 10.7 H, Neut % (Auto) 83.0 H, Lymph % (Auto) 11.0, [place] % (Auto) 3.7, Eos % (Auto) 0.4, Baso % (Auto) 0.6, Neut # (Auto) 6.5, Lymph # (Auto) 0.9, [place] # (Auto) 0.3, Eos # (Auto) 0.0, Baso # (Auto) 0.1, PT 11.1, INR 0.99, APTT 33.6 H, Sodium 133 L, Potassium 5.1, Chloride 106, Carbon Dioxide 25, Anion Gap 7.1, BUN 29 H, Creatinine 1.30 H, Estimated Creat Clear 40, Estimated GFR 40 L, Est GFR ( Amer) 49 L, Glucose 210 H, Calcium 8.8, Total Bilirubin 0.5, AST 36, ALT 28, Alkaline Phosphatase 77, Troponin I < 0.01, NT-Pro-B Natriuret Pep 642 H, Total Protein 6.2 L, Albumin 3.6, Globulin 2.6, Albumin/Globulin Ratio 1.4, Triglycerides 95, Cholesterol 134 L, LDL Cholesterol Direct 36.34 L, VLDL Cholesterol 19, HDL Cholesterol 76 H, Cholesterol/HDL Ratio 1.8, Lipase 64 08/25/24 12:06: Troponin I < 0.01 08/25/24 : Urine Color Yellow, Urine Appearance Clear, Urine pH 6.0, Ur Specific [place] 1.015, Urine Protein Negative, Urine Glucose (UA) 3+, Urine Ketones Negative, Urine Blood 3+ A, Urine Nitrate Negative, Urine Bilirubin Negative, Urine Urobilinogen 0.2, Ur Leukocyte Esterase 1+ A, Urine RBC Occasional, Urine WBC 20-50, Ur Squamous Epith Cells 5-10, Urine Bacteria Trace I & O for Last 24 hours: Intake & Output 08/22/24 08/23/24 08/24/24 08/25/24 23:59 23:59 23:59 23:59 Weight 140 lb Constitutional Constitutional: no acute distress and cooperative *Routine HEENT Exam Eye: Present PERRL *Routine Respiratory Exam Respiratory: Present CTA bilaterally; Absent accessory muscle use, wheezes or crackles *Routine Cardiovascular Exam Cardiovascular: Present RRR, Normal S1 and Normal S2; Absent murmur, gallop or rubs *Routine Abdominal Exam Abdominal: Present soft; Absent tenderness *Routine Extremities Exam Extremities: Present pulses intact; Absent cyanosis or edema *Routine Skin Exam Skin: Present intact; Absent erythema or wounds *Routine Neurological Exam Neurological: Present alert and oriented X3 Routine Psychiatric Exam Psychiatric: Present cooperative Meds Home Medications and Allergies Home Medications ?Medication ?Instructions ?Recorded ?Confirmed ?Type ergocalciferol (vitamin D2) 1,250 50,000 unit PO WEEKLY 12/16/17 08/25/24 History mcg (50,000 unit) capsule glipizide 10 mg tablet 10 mg PO BID 12/16/17 08/25/24 History omega-3 fatty acids 1,000 mg 1,000 mg PO DAILY 12/16/17 08/25/24 History capsule loratadine 10 mg tablet 10 mg PO DAILY 12/14/23 08/25/24 History amiodarone 200 mg tablet 200 mg PO DAILY #90 tabs 03/14/24 08/25/24 Rx dapagliflozin propanediol 10 mg 10 mg PO DAILY 04/13/24 08/25/24 History tablet (Farxiga) blood sugar diagnostic (Accu-Chek #10 ea 06/20/24 08/25/24 History Guide test strips) blood-glucose meter (Accu-Chek #1 ea 06/20/24 08/25/24 History Guide Me Glucose Meter) lancets (Accu-Chek Softclix #100 ea 06/20/24 08/25/24 History Lancets) levothyroxine 100 mcg tablet 100 mcg PO DAILY 06/20/24 08/25/24 History tirzepatide 2.5 mg/0.5 mL 2.5 mg SQ WEEKLY 06/20/24 08/25/24 History subcutaneous pen injector (Jose) rosuvastatin 20 mg tablet (Crestor) 20 mg PO DAILY #90 tabs 06/22/24 08/25/24 Rx isosorbide mononitrate 30 mg 30 mg PO DAILY #30 tabs 07/04/24 08/25/24 Rx tablet,extended release 24 hr bisoprolol fumarate 5 mg tablet 5 mg PO DAILY 07/25/24 08/25/24 History apixaban 2.5 mg tablet (Eliquis) 2.5 mg PO BID 08/25/24 08/25/24 History aspirin 81 mg tablet,delayed 81 mg PO DAILY 08/25/24 08/25/24 History release meclizine 25 mg tablet 25 mg PO TIDP PRN Dizziness 08/25/24 08/25/24 History ranolazine 1,000 mg 1,000 mg PO BID 08/25/24 08/25/24 History tablet,extended release,12 hr New Prescriptions to Start Prescriptions: Allergies Allergy/AdvReac Type Severity Reaction Status Date / Time lisinopril AdvReac Cough Verified 07/25/24 10:08 rivaroxaban (From Xarelto) AdvReac DIARHEA Verified 07/25/24 10:08 Assessment and Plan *Assessment and plan (1) Recurrent falls: Status: Acute Category: Medical Code(s): R29.6 - Repeated falls (2) Dizziness: Status: Acute Category: Medical Code(s): R42 - Dizziness and giddiness (3) Coronary artery disease: Status: Acute Qualifiers: Coronary Disease-Associated Artery/Lesion type: [place] artery [place] vs. transplanted heart: [place] heart Associated angina: without angina Qualified Code(s): I25.10 - Atherosclerotic heart disease of [place] coronary artery without angina pectoris Category: Medical Code(s): I25.10 - Atherosclerotic heart disease of [place] coronary artery without angina pectoris (4) Pacemaker: Status: Chronic Category: Medical Code(s): Z95.0 - Presence of cardiac pacemaker Plan Recurrent dizziness with falls - broad differential at this time - PPM interrogation - normal function, no events - will check Orthostatic vital signs - request PT/OT to eval Lucy/Hallpike and Epleys if needed - check CTA Head and Neck given her hx of ASCVD CAD - s/p REBECCA 2015 - Mod dz - med management per 07/2024 [facility] - CCS = 0 - Cont Eliquis, Bisoprolol, Statin PAF s/p PPM - PPM interrogation here shows Atrial Pacing 97% at 70bpm, RVP only 2.9% - no events - cont Bisoprolol Eliquis N/V - resolved per pt - abdomen is soft and nontender Mitral Annuls Calcification - moder ate per 03/2024 ECHO Further plans pending test results.
--- NOTE | 2024-08-25 13:44 | CT_ITS ---
FINAL REPORT TECHNIQUE: NASCET technique utilized for stenosis evaluation. CLINICAL HISTORY: recurrent dizziness with falls, ascvd COMPARISON: None FINDINGS: There is streak artifact arising from left upper anterior chest wall pacer. The lung apices are clear. RIGHT CAROTID: The right carotid is widely patent. There is no significant stenosis. LEFT CAROTID: There is moderate calcified plaque in the proximal internal carotid artery and carotid bulb. Stenosis is less than 50%. VERTEBRALS: The vertebral arteries are symmetric and patent. No significant stenosis is present. Paranasal sinuses are well aerated. IMPRESSION: Less than 50% stenosis left carotid artery with moderate plaque. Reviewed, Interpreted and Dictated by Vic Molina MD Transcribed by Teri Cordova Authenticated and [facility]
--- NOTE | 2024-08-25 13:44 | CT_ITS ---
PROCEDURE INFORMATION: Exam: CT Angiography Head Without And With Contrast Exam date and time: 08/25/2024 2:44 PM Age: 69 years old Clinical indication: Stroke-like symptoms; Dizziness/giddiness; Additional info: Recurrent dizzines with falls, ascvd TECHNIQUE: Imaging protocol: Computed tomographic angiography of the head without and with contrast. 3D rendering (Not supervised by radiologist): MIP and/or 3D reconstructed images were created by the technologist. Radiation optimization: All CT scans at this facility use at least one of these dose optimization techniques: automated exposure control; mA and/or kV adjustment per patient size (includes targeted exams where dose is matched to clinical indication); or iterative reconstruction. Contrast material: ISOVUE 370; Contrast volume: 100 ml; Contrast route: INTRAVENOUS (IV); Other technique: STROKE PROTOCOL was implemented. COMPARISON: CT ANGIO NECK 08/25/2024 2:44 PM FINDINGS: Limitations: Suboptimal imaging. Limited evaluation. ANTERIOR CIRCULATION: Right internal carotid artery: Atherosclerosis of the right internal carotid artery, with mild and moderate stenoses. Right middle cerebral artery: No definite occlusion. Right anterior cerebral artery: No definite occlusion. Left internal carotid artery: Atherosclerosis of the left internal carotid artery, with mild stenoses. Left middle cerebral artery: No definite occlusion. Left anterior cerebral artery: No definite occlusion. POSTERIOR CIRCULATION: Right vertebral artery: Atherosclerosis of the V4 segment of the right vertebral artery, with mild stenosis. Left vertebral artery: Atherosclerosis of the V4 segment of the left vertebral artery, with mild stenosis. Basilar artery: No definite occlusion. Right posterior cerebral artery: No definite occlusion. Left posterior cerebral artery: No definite occlusion. Brain: No acute intracranial hemorrhage is visualized. A tiny hypodense lacunar infarct is seen within the right caudate nucleus, indeterminate in acuity. The gordon-white differentiation is otherwise preserved. There are periventricular foci of white matter hypodensity, likely representing small vessel ischemic disease. The acuity of the white matter disease is indeterminate. There is no significant midline shift. There is mild prominence of sulci, compatible with atrophy. Artifact limits evaluation of the kyle. Cerebral ventricles: No ventriculomegaly. Orbits: Bilateral orbital lens implants. Bones/joints: The calvarium demonstrates no evidence for a depressed fracture. Other findings: For discussion of findings involving the neck and extracranial vessels, refer to the CTA neck report from the same day. This study is limited by the absence of thin axial images. IMPRESSION: 1. No large vessel arterial occlusion on this limited CTA head. 2. Mild bilateral vertebral artery stenoses. 3. Atherosclerosis of the internal carotid arteries, with stenoses bilaterally. 4. A tiny hypodense lacunar infarct is seen within the right caudate nucleus, indeterminate in acuity. If further evaluation is clinically indicated, an MRI of the brain is recommended. 5. There are periventricular foci of white matter hypodensity, likely representing small vessel ischemic disease. 6. Mild atrophy. ASSESSMENT: ASPECTS (Teressa Stroke Program Early CT Score) is 9.
[2024-08-25] MEDS: SODIUM CHLORIDE 0.9% 10ML SYR (RAD ONLY) 10 ML IV (15:10)
[2024-08-25] MEDS: 0.9 % SODIUM CHLORIDE 50 ML VIAL IV (15:10)
[2024-08-25] MEDS: IOPAMIDOL-370 (76%);100ML BOTTLE 100 ML IV (15:10)
[2024-08-25 15:58] LABS: Troponin I < 0.01 ng/ml (0.00-0.034)
[2024-08-25] MEDS: AMIODARONE 200MG TABLET 200 MG PO (18:29)
[2024-08-25 18:58] LABS: POC Glucose,Bedside 370 (70-110)
[2024-08-25 19:53] LABS: Thyroid Stimulating Hormone 7.85 uIU/mL (0.465-4.68)
[2024-08-25] MEDS: ATORVASTATIN 40MG TABLET 40 MG PO (21:13)
[2024-08-25] MEDS: humaLOG 100 UNITS/ML 10ML VIAL (SSI) SUBCUT (21:22)
[2024-08-25 21:23] LABS: POC Glucose,Bedside 240 (70-110)
[2024-08-25 21:49] LABS: Hemoglobin A1C 6.6 % (4.0-6.0)
[2024-08-26] VITALS: BP 134/76; PULSE 70; RESP 16; TEMP 36.6; O2SAT 96
--- NOTE | 2024-08-26 03:54 | PC.NURSE ---
Patient is alert and oriented x4. Patient was observed to have eyes closed, respirations even and unlabored on room air, and no apparent distress throughout the night. She explained upon assessment that her feeling of dizziness/lightheadedness was better this evening, but still there on occasions. She ambulates independently in room/to bathroom with standby/x1 assistance and tolerates it fairly well. Auscultation of her lungs, heart, and bowels were within normal findings. Patient was able to have one small bowel movement this shift. She has been given her scheduled medications per OCT. ACHS glucose fingersticks performed. A few bedtime snacks were given to the patient. Vital signs have been stable this shift. Heart rhythm is paced (heart rate 70) on telemetry. At this time, the patient is resting supine in bed. She does not have any further complaints. No acute changes noted thus far. Attachable bed alarm on. Call light within reach.
[2024-08-26 04:00] VITALS: BP 139/69; PULSE 70; PULSE 71; RESP 16; TEMP 36.8; O2SAT 97; BMI 23.9
[2024-08-26] MEDS: LEVOTHYROXINE 125MCG (0.125MG) TAB 125 MCG PO (06:33)
[2024-08-26 06:45] LABS: POC Glucose,Bedside 148 (70-110)
[2024-08-26 07:31] LABS: Albumin Level 3.9 g/dl (3.5-5.0); Chloride 101 mmol/L (98-107); Potassium 4.1 mmoL/L (3.5-5.1); Sodium 135 mmol/L (136-145)
[2024-08-26 07:32] LABS: Basophils # 0.1 K/mm3 (0-0.2); Basophils % 1.1 % (0.1-2.0); Eosinophils # 0.1 K/mm3 (0.0-0.4); Eosinophils % 1.1 % (0.1-12.0); Hematocrit 36.8 % (37.0-47.0); Hemoglobin 11.9 g/dL (12.2-16.2); Lymphocytes # 2.4 K/mm3 (0.7-4.5); Lymphocytes % 37.8 % (10-50); Mean Corpuscular HGB Conc 32.3 g/dL (31.8-35.4); Mean Corpuscular Hemoglobin 31.4 pg (27.0-31.2); Mean Corpuscular Volume 97.1 fl (81-99); Mean Platelet Volume 10.9 fl (7.4-10.4); Monocytes # 0.7 K/mm3 (0.1-1.0); Monocytes % 11.3 % (1.7-9.3); Neutrophils % 48.4 % (37.0-80.0); Platelet Count 291 K/mm3 (142-424); Red Blood Count 3.79 M/mm3 (4.20-5.40); Red Cell Distribution Width 14.2 % (11.5-17.5); White Blood Count 6.2 K/mm3 (4.8-10.8)
[2024-08-26 07:33] LABS: Anion Gap 11.1 mEq/L (5-15); Blood Urea Nitrogen 33 mg/dl (7-17); Carbon Dioxide 27 mmol/L (22.0-30.0); Creatinine Clearance Estimated 31 mL/min (50-200); Estimated Glomerular Filt Rate 30 ml/min (>60); GFR (African American) 36 ML/MIN (>60)
[2024-08-26 07:34] LABS: Alanine Aminotransferase 35 U/L (12-78); Albumin/Globulin Ratio 1.3 (1.1-1.8); Alkaline Phosphatase 68 U/L (38-126); Aspartate Amino Transferase 46 U/L (14-36); Bilirubin,Total 0.5 mg/dl (0.2-1.3); Calcium 9.1 mg/dl (8.4-10.2); Glucose 154 mg/dl (74-100); Magnesium 2.5 mg/dl (1.6-2.3); Total Protein,Serum 6.9 g/dl (6.3-8.2)
[2024-08-26 08:00] VITALS: BP 146/68; PULSE 70; RESP 18; TEMP 36.7; O2SAT 97
[2024-08-26] MEDS: BISOPROLOL 5MG TABLET 5 MG PO (08:14)
[2024-08-26] MEDS: AMIODARONE 200MG TABLET 200 MG PO (08:14)
[2024-08-26] MEDS: ISOSORBIDE MONO 30MG TAB.ER.24H 30 MG PO (08:14)
[2024-08-26] MEDS: DAPAGLIFLOZIN PROPANEDIOL 10 MG TABLET PO (08:14)
--- NOTE | 2024-08-26 09:43 | HMH.PTEV ---
Physical Therapy Evaluation Rehab PT IP Evaluation Start: 08/25/24 13:46 Freq: ONCE Status: Active Protocol: Document 08/26/24 09:36 PHOMAX (Rec: 08/26/24 09:42 PHORNE [id number]) Subjective/History History History 69-year-old female with history of hypertension, hyperlipidemia, CAD, CKD 3, diabetes, A-fib on Eliquis, AV pacemaker in place. She presents with complaint of dizziness worsening over the past month. She reports her dizziness has increased over the past several months since changes in medications. She reports no specific position that causes her dizziness and her symptoms are intermittent, but worse when standing. She reports she lives alone, but has a grandson that stays with her often. She has ramp to enter the home and is generally independent with all activity without AD. Subjective Subjective Pt reports no c/o this am, agrees to mobility assessment. Rehab PT IP Eval Objective Appearance Patient Behavior Appropriate,Cooperative Patient Orientation Person,Place,Time Difficulty following instructions none Speech Pattern Clear Ambulation Patient Able to Ambulate Yes Ambulation Observation IP General Gait Pattern Observation Wide Based Gait Ambulation Distance (feet) 100 Ambulation Assistive Device None Ambulation Ability Independent Balance Ability to Arise Able, w/o using arms Sitting Balance Steady, safe Standing Balance Steady, wide stance Dynamic Sitting Balance Ability Good Dynamic Standing Balance Ability Good Transfers Bed Transfer Ability Independent Chair Transfer Ability Independent Sit to Stand Bed Transfer Ability Independent Sit to Stand Chair Transfer Ability Independent Rehab PT IP prob,goals,plan Problems Date of Evaluation: 08/26/24 Discharge Plan PT Discharge Plan Pt is currently independent with all mobility and is appropriate to return home once medically stable for d/c. [place]-Hallpike performed and pt has no nystagmus noted. Pt also with normal occulomotor testing during vestibular exam . Eval Complexity Eval Charge Codes 88797 - High Complexity PHYSICIAN CERTIFICATION: I certify the specified therapy services for Vero Oates are required, authorized, and reviewed every 30 days.
--- NOTE | 2024-08-26 09:53 | HMH.OTEV ---
OT Inpatient Evaluation Rehab OT IP Evaluation Start: 08/26/24 08:43 Freq: ONCE Status: Active Protocol: Document 08/26/24 09:48 JOYGEOVANNY (Rec: 08/26/24 09:53 OZIEL [id number]) Rehab OT IP Assessment Subjective History Ms. Rodriguez is a 69-year-old female with history of hypertension, hyperlipidemia, CAD, CKD 3, diabetes, A-fib on Eliquis, AV pacemaker in place. She presents with complaint of dizziness worsening over the past month. 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 Intermittently having falls due to her dizziness. Has had some intermittent nausea and shortness of breath. Denies tamara syncope. No chest pain. No fever. Did have an episode of vomiting this morning that was nonbloody and nonbilious. On arrival to the ER, found to have a normal white count. Mild anemia. Mild hypertension. Electrolytes relatively unremarkable with stable baseline kidney function. Of note found to have arrhythmia on EKG for which cardiology was consulted. Cardiology recommended admission with further workup for possible cardiomyopathy secondary to her pacemaker. After arrival to the floor, CTA of head and neck were obtained due to dizziness and falls. No significant stenosis but was found to have a tiny hypodense lacunar infarct within the right caudate nucleus. Unsure the acuity. Recommend MRI for further evaluation. Otherwise no large vessel occlusions on CTA of the head. Stable on room air. Alert and oriented x 4. Echocardiogram obtained, pending formal read Patient recently underwent left heart cath the beginning of July. Found to have some mild coronary artery disease, recommendations at that time or medical management with addition of Ranexa and Imdur. Findings as follows: 1. For the time being and like to treat coronary artery disease medically. Patient has a creatinine of 1.6 and has already received contrast today. 2. Patient is not on antianginal medications. Will start bisoprolol 5 mg daily Ranexa 500 mg twice daily and Imdur 30 mg daily. I would like to treat patient's coronary disease medically. If she fails medical management consideration could be given to bring her back to the [facility] and undergo stenting of the large circumflex artery and possibly right coronary dizziness worse after initiating antianginals Patient lives with partner in 1 story home. 1-2 LARISA. Independent with ADLs and fx'l mobility prior to hospitalization. Subjective I can get up. Analysis Patient's ability to complete all bed mobility, transfers, toileting, LB drsg and fx'l mobility ~>50ft independently. No LOB noted. Objective Patient Orientation Person,Place,Name,Age Right Upper Extremity Gross ROM WFL Left Upper Extremity Gross ROM WFL Bed Mobility bed mobility - supine/sit Assist Level Independent Transfer Training Sit/Stand/Pivot Transfer Assist Level Independent Chair Transfer Ability Independent Chair Transfer Technique Sit to/from Ambulatory Rehab OT IP prob,goals,plan Problems Date of Evaluation: 08/26/24 Rehab Potential Rehab Potential Innapropriate for Skilled Therapy Discharge Plan OT Discharge Plan Patient appears to be at baseline. Return home after medical d/c. Eval Complexity Eval Charge Codes 46526 - Low Complexity PHYSICIAN CERTIFICATION: I certify the specified therapy services for Vero Oates are required, authorized, and reviewed every 30 days.
--- NOTE | 2024-08-26 10:20 | EXP.CARD.PN ---
Subjective Subjective Date: 08/26/24 Time: 10:00 Interval history: Patient reports her dizziness is subjectively improving Orthostatics were normal PT evaluation negative for BPPV CTA head and neck with numerous mild ASCVD findings including possible infarct, MRI pending. See full report. Exam Data for Last 24 hours Vital signs and Labs for Last 24 Hours: Temp Pulse Resp BP Pulse Ox O2 Del Method 98.0 F 70 18 146/68 H 97 Room Air 08/26/24 08:00 08/26/24 08:00 08/26/24 08:00 08/26/24 08:00 08/26/24 08:00 08/26/24 08:00 Laboratory Results - last 24 hr 08/25/24 08:54: Hemoglobin A1c 6.6 H, Troponin I < 0.01, NT-Pro-B Natriuret Pep 642 H, LDL Cholesterol Direct 36.34 L, TSH 7.85 H 08/25/24 12:06: Troponin I < 0.01 08/25/24 15:20: Troponin I < 0.01 08/25/24 18:52: POC Glucose 370 H* 08/25/24 21:15: POC Glucose 240 H 08/25/24 : Urine Color Yellow, Urine Appearance Clear, Urine pH 6.0, Ur Specific [place] 1.015, Urine Protein Negative, Urine Glucose (UA) 3+, Urine Ketones Negative, Urine Blood 3+ A, Urine Nitrate Negative, Urine Bilirubin Negative, Urine Urobilinogen 0.2, Ur Leukocyte Esterase 1+ A, Urine RBC Occasional, Urine WBC 20-50, Ur Squamous Epith Cells 5-10, Urine Bacteria Trace 08/26/24 06:36: POC Glucose 148 H 08/26/24 06:37: WBC 6.2, RBC 3.79 L, Hgb 11.9 L, Hct 36.8 L, MCV 97.1, MCH 31.4 H, MCHC 32.3, RDW 14.2, Plt Count 291, MPV 10.9 H, Neut % (Auto) 48.4, Lymph % (Auto) 37.8, [place] % (Auto) 11.3 H, Eos % (Auto) 1.1, Baso % (Auto) 1.1, Neut # (Auto) 3.0, Lymph # (Auto) 2.4, [place] # (Auto) 0.7, Eos # (Auto) 0.1, Baso # (Auto) 0.1, Sodium 135 L, Potassium 4.1, Chloride 101, Carbon Dioxide 27, Anion Gap 11.1, BUN 33 H, Creatinine 1.70 H D, Estimated Creat Clear 31, Estimated GFR 30 L, Est GFR ( Amer) 36 L D, Glucose 154 H D, Calcium 9.1, Magnesium 2.5 H, Total Bilirubin 0.5, AST 46 H D, ALT 35, Alkaline Phosphatase 68, Total Protein 6.9, Albumin 3.9, Globulin 3.0, Albumin/Globulin Ratio 1.3 I & O for Last 24 hours: Intake & Output 08/23/24 08/24/24 08/25/24 08/26/24 23:59 23:59 23:59 23:59 Intake Total 360 / 537 417 / 417 Output Total 200 / 200 0 / 0 Balance 160 / 337 417 / 417 Weight 140 lb 140 lb 0.108 oz Microbiology Reports for the Last 24 Hours: Microbiology 08/25/24 Unknown Urine,Clean Catch Urine Culture - Preliminary Gram Positive Cocci Constitutional Constitutional: no acute distress and cooperative *Routine HEENT Exam Eye: Present PERRL *Routine Respiratory Exam Respiratory: Present CTA bilaterally; Absent accessory muscle use, wheezes or crackles *Routine Cardiovascular Exam Cardiovascular: Present RRR, Normal S1 and Normal S2; Absent murmur, gallop or rubs *Routine Abdominal Exam Abdominal: Present soft; Absent tenderness *Routine Extremities Exam Extremities: Present pulses intact; Absent cyanosis or edema *Routine Skin Exam Skin: Present intact; Absent erythema or wounds *Routine Neurological Exam Neurological: Present alert and oriented X3 Routine Psychiatric Exam Psychiatric: Present cooperative Progress Note: A&P Assessment and plan (1) Dizziness: Status: Acute (2) Cardiomyopathy: Status: Acute (3) CVA (cerebral vascular accident): Status: Acute (4) Atrial fibrillation: Status: Chronic (5) Recurrent falls: Status: Acute (6) Coronary artery disease: Status: Acute (7) Pacemaker: Status: Chronic (8) Diabetes mellitus: Status: Chronic (9) CKD (chronic kidney disease) stage 3, GFR 30-59 ml/min: Status: Chronic (10) Vertebral artery stenosis: Status: Acute (11) Carotid artery stenosis: Status: Acute Assessment and Plan Assessment and Plan for All Diagnoses:: Recurrent dizziness with falls - likely cerebrovascular etiology - PPM interrogation - normal function, no events - Orthostatic VS - neg - PT Eval for BPPB - Neg - CTA Head/Neck shows small vessel dz, mild vertebral/carotid stenosis, mild atrophy, and possible lacunar infarct, MRI pending - resume OAC/ASA and statin. Avoid tobacco. Control BP/Chol. - may benefit from OP OT Possible CVA - tiny hypodense lacunar infact is seen within the right caudate nucleus - Plan: MRI recommended/pending. Cont ASA, Eliquis, Statin. F/u with Neuro. CAD - s/p REBECCA 2015 - Mod dz - med management per 07/2024 [facility] - CCS = 0 - Cont Eliquis, Bisoprolol, Statin PAF s/p PPM - PPM interrogation here shows Atrial Pacing 97% at 70bpm, RVP only 2.9% - no events - cont Bisoprolol Eliquis N/V - resolved per pt - abdomen is soft and nontender Mitral Annuls Calcification - moderate per 03/2024 ECHO CV stable, will sign off. Please advise if further CV concerns this admission, otherwise patient can follow-up in our clinic 1 to 2 weeks postdischarge
[2024-08-26] MEDS: APIXABAN 5MG TABLET 2.5 MG PO (11:22)
[2024-08-26] MEDS: ASPIRIN EC 81MG TABLET 81 MG PO (11:22)
[2024-08-26] MEDS: humaLOG 100 UNITS/ML 10ML VIAL (SSI) SUBCUT (11:27)
--- NOTE | 2024-08-26 11:35 | P.DS_ITS ---
General Admission date:: 08/25/24 Discharge date: 08/26/24 HPI HPI HPI: Ms. Rodriguez is a 69-year-old female with history of hypertension, hyperlipidemia, CAD, CKD 3, diabetes, A-fib on Eliquis, AV pacemaker in place. She presents with complaint of dizziness worsening over the past month. She has seen her neurologist and improvement spec and has gotten worse with addition and increase in her medications including Imdur and Ranexa. Intermittently having falls due to her dizziness. Has had some intermittent nausea and shortness of breath. Denies tamara syncope. No chest pain. No fever. Did have an episode of vomiting this morning that was nonbloody and nonbilious. On arrival to the ER, found to have a normal white count. Mild anemia. Mild hypertension. Electrolytes relatively unremarkable with stable baseline kidney function. Of note found to have arrhythmia on EKG for which cardiology was consulted. Cardiology recommended admission with further workup for possible cardiomyopathy secondary to her pacemaker. After arrival to the floor, CTA of head and neck were obtained due to dizziness and falls. No significant stenosis but was found to have a tiny hypodense lacunar infarct within the right caudate nucleus. Unsure the acuity. Recommend MRI for further evaluation. Otherwise no large vessel occlusions on CTA of the head. Stable on room air. Alert and oriented x 4. Echocardiogram obtained, pending formal read Patient recently underwent left heart cath the beginning of July. Found to have some mild coronary artery disease, recommendations at that time or medical management with addition of Ranexa and Imdur. Findings as follows: 1. For the time being and like to treat coronary artery disease medically. Patient has a creatinine of 1.6 and has already received contrast today. 2. Patient is not on antianginal medications. Will start bisoprolol 5 mg daily Ranexa 500 mg twice daily and Imdur 30 mg daily. I would like to treat patient's coronary disease medically. If she fails medical management consideration could be given to bring her back to the [facility] and undergo stenting of the large circumflex artery and possibly right coronary dizziness worse after initiating antianginals Hospital Course Hospital Course Hospital Course: 69 year-old female with recurrent dizziness and falls. Workup in the ER with arrhythmia on EKG. CTA of the head shows small lacunar infarct of undetermined age. Discussed case with ER physician, request admission for management of arrhythmia and cardiology eval. I agreed to admit for further treatment and management. Cardiology assisted with care. Patient had no further events. CTA of head showed patient had had a small stroke, is likely in the subacute phase. Given her clinical stability, response to therapy, plan to discharge home with home health and outpatient follow-up with cardiology. Problems addressed as follows: Recurrent dizziness CVA of undetermined acuity -Patient presented with dizziness and falls over the past few weeks. CTA of head and neck obtained which showed a tiny hypodense lacunar infarct seen within the right caudate nucleus, indeterminate in acuity. Discussed risks and benefits of MRI. Due to presence of pacemaker in situ and MRI not changing management clinically of patient, have deferred on MRI at this time. Will continue aspirin 81 mg daily, Eliquis 2.5 mg twice daily, Crestor 20 mg daily. No benefit in adding Plavix at this time in my opinion. Monitored on telemetry with no further arrhythmias. Orthostatic vital signs stable. Will continue Ranexa at this time but hold Imdur at discharge due to patient's anginal symptoms but also her dizziness. TSH obtained and found to be above goal at 7.8. Increase levothyroxine to 125 mcg daily. Diabetes: A1c fairly well-controlled at 8.6. Continue home regimen including glipizide and dapagliflozin. CAD Paroxysmal A-fib - s/p REBECCA 2014, repeat cath performed 07/24. Recommended medical management. Continue Eliquis, statin as above. Resume bisoprolol 5 mg nightly. Cardiology interrogated pacemaker, shows Atrial Pacing 97% at 70bpm, RVP only 2.9% - no events CKD 3 - Cr at baseline during admission. Elevated to 1.6 during left heart cath. Has been within the range of 1.3-1.7 during this admission. Would benefit from repeat labs in 1 week to monitor kidney function and electrolytes. N/V - resolved per pt. abdomen is soft and nontender, tolerating p.o. intake on exam Total time spent on discharge 32 minutes in counseling, documentation, chart review, and direct care with patient. Exam Data for Last 24 hours Vital signs and Labs for Last 24 Hours: Temp Pulse Resp BP Pulse Ox O2 Del Method 98.0 F 70 18 146/68 H 97 Room Air 08/26/24 08:00 08/26/24 08:00 08/26/24 08:00 08/26/24 08:00 08/26/24 08:00 08/26/24 09:00 Laboratory Results - last 24 hr 08/25/24 08:54: Hemoglobin A1c 6.6 H, TSH 7.85 H 08/25/24 12:06: Troponin I < 0.01 08/25/24 15:20: Troponin I < 0.01 08/25/24 18:52: POC Glucose 370 H* 08/25/24 21:15: POC Glucose 240 H 08/25/24 : Urine Color Yellow, Urine Appearance Clear, Urine pH 6.0, Ur Specific Alpine 1.015, Urine Protein Negative, Urine Glucose (UA) 3+, Urine Ketones Negative, Urine Blood 3+ A, Urine Nitrate Negative, Urine Bilirubin Negative, Urine Urobilinogen 0.2, Ur Leukocyte Esterase 1+ A, Urine RBC Occasional, Urine WBC 20-50, Ur Squamous Epith Cells 5-10, Urine Bacteria Trace 08/26/24 06:36: POC Glucose 148 H 08/26/24 06:37: WBC 6.2, RBC 3.79 L, Hgb 11.9 L, Hct 36.8 L, MCV 97.1, MCH 31.4 H, MCHC 32.3, RDW 14.2, Plt Count 291, MPV 10.9 H, Neut % (Auto) 48.4, Lymph % (Auto) 37.8, Rolette % (Auto) 11.3 H, Eos % (Auto) 1.1, Baso % (Auto) 1.1, Neut # (Auto) 3.0, Lymph # (Auto) 2.4, Rolette # (Auto) 0.7, Eos # (Auto) 0.1, Baso # (Auto) 0.1, Sodium 135 L, Potassium 4.1, Chloride 101, Carbon Dioxide 27, Anion Gap 11.1, BUN 33 H, Creatinine 1.70 H D, Estimated Creat Clear 31, Estimated GFR 30 L, Est GFR ( Amer) 36 L D, Glucose 154 H D, Calcium 9.1, Magnesium 2.5 H, Total Bilirubin 0.5, AST 46 H D, ALT 35, Alkaline Phosphatase 68, Total Protein 6.9, Albumin 3.9, Globulin 3.0, Albumin/Globulin Ratio 1.3 I & O for Last 24 hours: Intake & Output 08/23/24 08/24/24 08/25/24 08/26/24 23:59 23:59 23:59 23:59 Intake Total 360 / 537 417 / 417 Output Total 200 / 200 0 / 0 Balance 160 / 337 417 / 417 Weight 63.503 kg 63.506 kg Microbiology Reports for the Last 24 Hours: Microbiology 08/25/24 Unknown Urine,Clean Catch Urine Culture - Preliminary Gram Positive Cocci Constitutional Constitutional: no acute distress, average body habitus, chronically ill appearing and cooperative *Routine HEENT Exam Head: Present normocephalic Eye: Present EOMI and PERRL ENT: Present mucous membranes moist *Routine Neck Exam Neck: Present supple; Absent lymphadenopathy *Routine Respiratory Exam Respiratory: Present CTA bilaterally; Absent rhonchi, wheezes or crackles *Routine Cardiovascular Exam Cardiovascular: Present RRR *Routine Abdominal Exam Abdominal: Present soft and normoactive bowel sounds; Absent tenderness *Routine Rectal Exam Patient deferred: visual exam *Routine Exam Patient deferred: external exam *Routine Extremities Exam Extremities: Absent cyanosis, clubbing or edema *Routine Skin Exam Skin: Present warm; Absent rash *Routine Neurological Exam Neurological: Present alert, oriented X3, CN II-XII intact and moving all extremities; Absent altered mental status Results Data Completed and Pending Labs on day of discharge: Labs from last 24 hours 08/26/24 08/26/24 08/25/24 06:37 06:36 Unknown WBC 6.2 RBC 3.79 L Hgb 11.9 L Hct 36.8 L MCV 97.1 MCH 31.4 H MCHC 32.3 RDW 14.2 Plt Count 291 MPV 10.9 H Neut % (Auto) 48.4 Lymph % (Auto) 37.8 Rolette % (Auto) 11.3 H Eos % (Auto) 1.1 Baso % (Auto) 1.1 Neut # (Auto) 3.0 Lymph # (Auto) 2.4 Rolette # (Auto) 0.7 Eos # (Auto) 0.1 Baso # (Auto) 0.1 Sodium 135 L Potassium 4.1 Chloride 101 Carbon Dioxide 27 Anion Gap 11.1 BUN 33 H Creatinine 1.70 H D Estimated Creat Clear 31 Estimated GFR 30 L Est GFR ( Amer) 36 L D Glucose 154 H D POC Glucose 148 H Hemoglobin A1c Calcium 9.1 Magnesium 2.5 H Total Bilirubin 0.5 AST 46 H D ALT 35 Alkaline Phosphatase 68 Troponin I Total Protein 6.9 Albumin 3.9 Globulin 3.0 Albumin/Globulin Ratio 1.3 TSH Urine Color Yellow Urine Appearance Clear Urine pH 6.0 Ur Specific Alpine 1.015 Urine Protein Negative Urine Glucose (UA) 3+ Urine Ketones Negative Urine Blood 3+ A Urine Nitrate Negative Urine Bilirubin Negative Urine Urobilinogen 0.2 Ur Leukocyte Esterase 1+ A Urine RBC Occasional Urine WBC 20-50 Ur Squamous Epith Cells 5-10 Urine Bacteria Trace 08/25/24 08/25/24 08/25/24 21:15 18:52 15:20 WBC RBC Hgb Hct MCV MCH MCHC RDW Plt Count MPV Neut % (Auto) Lymph % (Auto) Rolette % (Auto) Eos % (Auto) Baso % (Auto) Neut # (Auto) Lymph # (Auto) Rolette # (Auto) Eos # (Auto) Baso # (Auto) Sodium Potassium Chloride Carbon Dioxide Anion Gap BUN Creatinine Estimated Creat Clear Estimated GFR Est GFR ( Amer) Glucose POC Glucose 240 H 370 H* Hemoglobin A1c Calcium Magnesium Total Bilirubin AST ALT Alkaline Phosphatase Troponin I < 0.01 Total Protein Albumin Globulin Albumin/Globulin Ratio TSH Urine Color Urine Appearance Urine pH Ur Specific [place] Urine Protein Urine Glucose (UA) Urine Ketones Urine Blood Urine Nitrate Urine Bilirubin Urine Urobilinogen Ur Leukocyte Esterase Urine RBC Urine WBC Ur Squamous Epith Cells Urine Bacteria 08/25/24 08/25/24 12:06 08:54 WBC RBC Hgb Hct MCV MCH MCHC RDW Plt Count MPV Neut % (Auto) Lymph % (Auto) Rolette % (Auto) Eos % (Auto) Baso % (Auto) Neut # (Auto) Lymph # (Auto) Rolette # (Auto) Eos # (Auto) Baso # (Auto) Sodium Potassium Chloride Carbon Dioxide Anion Gap BUN Creatinine Estimated Creat Clear Estimated GFR Est GFR ( Amer) Glucose POC Glucose Hemoglobin A1c 6.6 H Calcium Magnesium Total Bilirubin AST ALT Alkaline Phosphatase Troponin I < 0.01 Total Protein Albumin Globulin Albumin/Globulin Ratio TSH 7.85 H Urine Color Urine Appearance Urine pH Ur Specific Alpine Urine Protein Urine Glucose (UA) Urine Ketones Urine Blood Urine Nitrate Urine Bilirubin Urine Urobilinogen Ur Leukocyte Esterase Urine RBC Urine WBC Ur Squamous Epith Cells Urine Bacteria Preliminary micro results at discharge 08/25/24 Unknown Urine Culture - Preliminary Urine,Clean Catch Gram Positive Cocci DS: Diagnosis Discharge Diagnosis (1) CVA (cerebral vascular accident): Status: Acute Code(s): I63.9 - Cerebral infarction, unspecified (2) Dizziness: Status: Acute Code(s): R42 - Dizziness and giddiness (3) Cardiomyopathy: Status: Acute Code(s): I42.9 - Cardiomyopathy, unspecified (4) Atrial fibrillation: Status: Chronic Code(s): I48.91 - Unspecified atrial fibrillation Qualifiers: Atrial fibrillation type: chronic Qualified Code(s): I48.2 - Chronic atrial fibrillation (5) Recurrent falls: Status: Acute Code(s): R29.6 - Repeated falls (6) Coronary artery disease: Status: Acute Code(s): I25.10 - Atherosclerotic heart disease of unga coronary artery without angina pectoris Qualifiers: Associated angina: without angina Coronary Disease-Associated Artery/Lesion type: unga artery [place] vs. transplanted heart: unga heart Qualified Code(s): I25.10 - Atherosclerotic heart disease of unga coronary artery without angina pectoris (7) Pacemaker: Status: Chronic Code(s): Z95.0 - Presence of cardiac pacemaker (8) Diabetes mellitus: Status: Chronic Code(s): E11.9 - Type 2 diabetes mellitus without complications Qualifiers: Diabetes mellitus complication detail: with other circulatory complications Diabetes mellitus complication status: with circulatory complication Diabetes mellitus retirement insulin use: with retirement use Diabetes mellitus type: type 2 Qualified Code(s): E11.59 - Type 2 diabetes mellitus with other circulatory complications; 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 (9) CKD (chronic kidney disease) stage 3, GFR 30-59 ml/min: Status: Chronic Code(s): N18.30 - Chronic kidney disease, stage 3 unspecified Qualifiers: Chronic kidney disease stage 3 subtype: unspecified whether 3a or 3b Qualified Code(s): N18.30 - Chronic kidney disease, stage 3 unspecified (10) Vertebral artery stenosis: Status: Acute Code(s): I65.09 - Occlusion and stenosis of unspecified vertebral artery (11) Carotid artery stenosis: Status: Acute Code(s): I65.29 - Occlusion and stenosis of unspecified carotid artery Meds Home Medications and Allergies Home Medications ?Medication ?Instructions ?Recorded ?Confirmed ?Type ergocalciferol (vitamin D2) 1,250 50,000 unit PO WEEKLY 12/16/17 08/25/24 History mcg (50,000 unit) capsule glipizide 10 mg tablet 10 mg PO BID 12/16/17 08/25/24 History omega-3 fatty acids 1,000 mg 1,000 mg PO DAILY 12/16/17 08/25/24 History capsule loratadine 10 mg tablet 10 mg PO DAILY 12/14/23 08/25/24 History amiodarone 200 mg tablet 200 mg PO DAILY #90 tabs 03/14/24 08/25/24 Rx dapagliflozin propanediol 10 mg 10 mg PO DAILY 04/13/24 08/25/24 History tablet (Farxiga) blood sugar diagnostic (Accu-Chek #10 ea 06/20/24 08/25/24 History Guide test strips) blood-glucose meter (Accu-Chek #1 ea 06/20/24 08/25/24 History Guide Me Glucose Meter) lancets (Accu-Chek Softclix #100 ea 06/20/24 08/25/24 History Lancets) tirzepatide 2.5 mg/0.5 mL 2.5 mg SQ WEEKLY 06/20/24 08/25/24 History subcutaneous pen injector (Mounjaro) rosuvastatin 20 mg tablet (Crestor) 20 mg PO DAILY #90 tabs 06/22/24 08/25/24 Rx isosorbide mononitrate 30 mg 30 mg PO DAILY #30 tabs 07/04/24 08/25/24 Rx tablet,extended release 24 hr bisoprolol fumarate 5 mg tablet 5 mg PO DAILY 07/25/24 08/25/24 History apixaban 2.5 mg tablet (Eliquis) 2.5 mg PO BID 08/25/24 08/25/24 History aspirin 81 mg tablet,delayed 81 mg PO DAILY 08/25/24 08/25/24 History release meclizine 25 mg tablet 25 mg PO TIDP PRN Dizziness 08/25/24 08/25/24 History ranolazine 1,000 mg 1,000 mg PO BID 08/25/24 08/25/24 History tablet,extended release,12 hr levothyroxine 125 mcg tablet 125 mcg PO DAILYDM 30 days #30 tabs 08/26/24 Rx (Synthroid) New Prescriptions to Start Prescriptions: levothyroxine [Synthroid] Flako Villa Allergies Allergy/AdvReac Type Severity Reaction Status Date / Time lisinopril AdvReac Cough Verified 07/25/24 10:08 rivaroxaban (From Xarelto) AdvReac DIARHEA Verified 07/25/24 10:08 Discharge Plan Disposition Patient Disposition: Home, Self-Care Condition: Fair Follow up Plan Follow up with: Bhanu Mata PA [Physician [employer]] - 09/07/24 11:30 am iMke Francis APRN [Primary Care Provider] - 09/02/24 11:20 am Prescriptions/Medication Reconciliation: New levothyroxine [Synthroid] 125 mcg Tablet 125 mcg PO DAILYDM 30 Days Qty: 30 0RF Continued loratadine 10 mg tablet 10 mg PO DAILY Patient Comments: TAKE ONE (1) TABLET BY MOUTH ONCE DAILY (DME) blood-glucose meter [Accu-Chek Guide Me Glucose Mtr] Mis See Rx Instructions .ROUTE .MEDSUPPLY Qty: 1 Patient Comments: USE DIRECTED Rx Instructions: As directed (DME) Accu-Chek Guide test strips Strip See Rx Instructions .ROUTE .MEDSUPPLY Qty: 10 Patient Comments: USE DIRECTED TESTING TWICE DAILY Rx Instructions: As directed (DME) lancets [Accu-Chek Softclix Lancets] [facility] See Rx Instructions .ROUTE .MEDSUPPLY Qty: 100 Patient Comments: USE DIRECTED TESTING TWICE DAILY Rx Instructions: As directed Mounjaro 2.5 mg/0.5 mL pen injector 2.5 mg SQ WEEKLY Patient Comments: INJECT (2.5 MG) EVERY WEEK SUBCUTANEOUSLY DIRECTED FOR 28 DAYS. dapagliflozin propanediol [Farxiga] 10 mg tablet 10 mg PO DAILY Patient Comments: TAKE ONE (1) TABLET BY MOUTH EVERY DAY glipizide 10 mg tablet 10 mg PO BID omega-3 fatty acids 1,000 mg capsule 1,000 mg PO DAILY ergocalciferol (vitamin D2) 50,000 unit capsule 50,000 unit PO WEEKLY bisoprolol fumarate 5 mg tablet 5 mg PO DAILY amiodarone 200 mg tablet 200 mg PO DAILY Qty: 90 3RF rosuvastatin [Crestor] 20 mg tablet 20 mg PO DAILY Qty: 90 2RF Eliquis 2.5 mg tablet 2.5 mg PO BID Patient Comments: TAKE ONE (1) TABLET BY MOUTH TWICE DAILY aspirin 81 mg tablet,delayed release (DR/EC) 81 mg PO DAILY meclizine 25 mg tablet 25 mg PO TIDP PRN (Reason: Dizziness) ranolazine 1,000 mg tablet extended release 12 hr 1,000 mg PO BID Held isosorbide mononitrate 30 mg Tablet Extended Release 24 Hr 30 mg PO DAILY Qty: 30 3RF Hold Instructions: pending follow-up with cards Discontinued levothyroxine 100 mcg tablet 100 mcg PO DAILY Patient Comments: TAKE ONE (1) TABLET BY MOUTH EVERY DAY Problem Reconciliation Problems Reviewed?: Yes Patient Discharge Instructions ACTIVITY: Continue current activity DIET: continue same diet Patient Instructions: DI for Syncope in Adults (Fainting), DI for Stroke- Ischemic, DI for Cardiomyopathy Print Language: Vietnamese Providers Primary Care Provider: Mike Francis Provider: Flako Villa Attending Provider: Flako Villa
[2024-08-26 12:00] VITALS: PULSE 70
--- NOTE | 2024-08-29 11:45 | SW/DCPLANNER ---
Spoke with patient on the phone. Patient stated that she is doing very well. Patient stated that she was able to get her new medicine filled and brought to her room before she was discharged. Patient stated that she is aware of her upcoming appointments and that she has no concerns or questions at this time. Antonio Mendoza
== END 2024-08-26 14:41 | disposition home or self-care (01) ==
LOC: ER 09:33 → 2ND 11:24
PROVIDERS: Admitting Provider Internal Medicine Adolescent Medicine; Emergency Provider Emergency Medicine; PCP Nurse Practitioner Family; Visit Provider Internal Medicine Adolescent Medicine
DX: I63.9 Cerebral infarction, unspecified (principal); I25.10 Atherosclerotic heart disease of native coronary artery without angina pectoris; I48.0 Paroxysmal atrial fibrillation; R42 Dizziness and giddiness; I42.9 Cardiomyopathy, unspecified; R29.6 Repeated falls; Z95.0 Presence of cardiac pacemaker; E11.59 Type 2 diabetes mellitus with other circulatory complications; I12.9 Hypertensive chronic kidney disease with stage 1 through stage 4 chronic kidney disease, or unspecified chronic kidney disease; N18.30 Chronic kidney disease, stage 3 unspecified; I65.21 Occlusion and stenosis of right carotid artery; E11.22 Type 2 diabetes mellitus with diabetic chronic kidney disease; Z79.899 Other long term (current) drug therapy; Z79.4 Long term (current) use of insulin
CPT/HCPCS: 36415; 70496; 70498; 71045; 80053; 80061; 81001; 82962; 83036; 83690; 83735; 83880; 84443; 84484; 85025; 85610; 85730; 87086; 87088; 87186; 93005; 93306; 97163; 97165; 99291; G0378; Q9967

== ENCOUNTER 2025-04-24 11:54 | Outpatient (CLI) | payer MEDICARE, SELFPAY ==
--- NOTE | 2025-04-24 11:57 | XR_ITS ---
FINAL REPORT CLINICAL HISTORY: amiodarone therapy COMPARISON: None FINDINGS: PA and lateral views of the chest are obtained. There is no prior exam for comparison. A left-sided pacemaker is present. The cardiac and mediastinal silhouettes are within normal limits. The lungs are clear. There is no pleural effusion, pneumothorax, or acute osseous abnormality. IMPRESSION: No radiographic evidence of acute cardiac or pulmonary disease. Reviewed, Interpreted and Dictated by Lilly Lama MD Transcribed by Tierney Rivero Authenticated and [facility]
--- OUTSIDE RECORDS SUMMARY | 2025-04-24 12:19 | XMS_ITS | Clinical Summary ---
Author Organization [facility] Address [address] [place] [place] [address] Care Team Providers Care Encephalographer Name Role Phone Mike Francis CLARK Primary Care Provider + Medications amiodarone (Pacerone) 200 MG tablet Take by mouth 1 (one) time each day. Active ASPIRIN 81 PO Take by mouth. A ctive bisoprolol (Zebeta) 5 MG tablet Take by mouth 1 (one) time each day. Active dilTIAZem CD (Cardizem CD) 240 MG 24 hr capsule Take 1 capsule (240 mg) by mouth 1 (one) time each day. Active apixaban (Eliquis) 5 MG tablet Take 1 tablet (5 mg) by mouth 2 (two) times a day. Active Ergocalciferol (VITAMIN D2 PO) Take by mouth. Active dapagliflozin (Farxiga) 10 MG tablet Take 1 tablet (10 mg) by mouth 1 (one) time each day. Active fluticasone (Flonase) 50 MCG/ACT nasal spray Administer 1 spray into each nostril 1 (one) time each day. Shake gently. Before first use, prime pump. After use, clean tip and replace cap. Active furosemide (Lasix) 20 MG tablet Take by mouth. Activ e gabapentin (Neurontin) 300 MG capsule Take 1 capsule (300 mg) by mouth. Active glipiZIDE XL (Glucotrol XL) 10 MG 24 hr tablet Take 1 tablet (10 mg) by mouth 1 (one) time each day. Do not crush, chew, or split. Active IPRATROPIUM BROMIDE IN Inhale. Active levothyroxine (Synthroid, Levoxyl) 100 MCG tablet Take 1 tablet (100 mcg) by mouth 1 (one) time each day in the morning. Active methocarbamol (Robaxin) 500 MG tablet Take 1 tablet (500 mg) by mouth 4 (four) times a day. Active nitroglycerin (Nitrostat) 0.[address] 1 tablet (0.4 mg) under the tongue every 5 (five) minutes if needed. Active pantoprazole (Protonix) 40 MG EC tablet Take 1 tablet (40 mg) by mouth 1 (one) time each day before breakfast. Do not crush, chew, or split. Active Insulin Glargine (TOUJEO MAX SOLOSTAR SC) Inject under the skin. Active triamcinolone (Kenalog) 0.1 % cream Apply 1 Application topically 2 (two) times a day. Active dulaglutide (Trulicity) 1.5 MG/0.5ML solution pen-injector inj. pen Inject 1.5 mg under the skin 1 (one) time per week. Active liraglutide (Victoza) 18 MG/3ML inj. pen Inject under the skin 1 (one) time each day. Active Family History Medical History Relation Name Comments Conversions - Other Mother Blood cl ot in vein Heart attack Other Relation Name Status Comments Mother Other Social History Tobacco Use Types Packs/Day Years Used Date Smoking Tobacco: Never Alcohol Use Standard Drinks/Week Comments No 0 (1 standard drink = 0.6 oz pure alcohol) Alcoholic Drinks/day: Denies alcohol consumption Comments Unknown Sex and Gender Information Value Date Recorded Sex Assigned at Not on file Legal Sex Female 6:10 PM EDT Gender Identity Not on file Sexual Orientation Not on file Last Filed Vital Signs Vital Sign Reading Time Taken Comments Blood Pressure - - Pulse - - Temperature - - Respiratory Rate - - Oxygen Saturation - - Inhaled Oxygen Concentration - - Weight 76.7 kg (169 lb 2.2 oz) 12/09/2016 9:43 A M EDT Height 162.6 cm (5' 4 ) 12/09/2016 9:43 AM EDT Body Mass Index 29.03 12/09/2016 9:43 AM EDT Plan of Treatment Health Maintenance Due Date Last Done Comments [facility]-Bone Density Scan 1954 [facility]-Depression Screening 1954 [facility]-Diabetes: Hemoglobin A1C 1954 [facility]-Hepatitis C Screening 1954 [facility]-Medicare Annual Wellness (AWV) 1954 [facility]-Infant/Child/Adol SDOH Screenings 1954 [id number] Vaccine (#1) 1959 Diabetes: Dental Exam 1964 [facility]- SDOH Screenings 1972 [facility]-Adult SDOH Screenings 1972 [facility]-Pneumococcal Vaccine: 50 + Years (1 of 2 - PCV) 1973 CT Colonography 1999 Colonoscopy 1999 FIT-DNA 1999 FIT 1999 FOBT 1999 Sigmoidoscopy 1999 [facility]-Colorectal Cancer Screening 1999 [facility]-Breast Cancer Screening 2004 [facility]-Zoster Vaccines (1 of 2) 2004 [facility]-RSV Vaccine: 60+ Years o r (1 - Risk 60-74 years 1-dose series) 2014 [facility]-Influenza Vaccine (#1) 2025 [facility]-DTaP,Tdap,and Td Vaccine s (3 - Td or Tdap) 12/09/2027 12/08/2017, 06/09/2010 HPV Vaccines Aged Out No longer eligi ble based on patient's age to complete this topic [facility]-HIB Vaccines Aged Out No longer e ligible based on patient's age to complete this topic [facility]-Hepatitis A Vaccines Aged Out No longer eligible based on patient's age to complete this topic [facility]-IPV Vaccines Aged Out No longer e ligible based on patient's age to complete this topic [facility]-Rotavirus Vaccines Aged Out No lo nger eligible based on patient's age to complete this topic Insurance MEDICARE Care Teams Encephalographer Relationship Specialty Start Date End Date Mike Francis APRN [address] [place], [place] [id number] PCP - General 01/11/21
== END 2025-04-24 23:59 ==
LOC: RAD 11:55
PROVIDERS: Visit Provider Physician Assistant
DX: Z79.899 Other long term (current) drug therapy (principal); Z95.0 Presence of cardiac pacemaker
CPT/HCPCS: 71046